=== PATIENT | female | born 1970 | race Caucasian/White ===

== ENCOUNTER 2021-01-16 02:36 | Emergency (ER) | payer BC, SELFPAY ==
[2021-01-16 02:39] VITALS: BP 189/118; PULSE 136; RESP 20; TEMP 36.8; O2SAT 95
[2021-01-16 02:40] VITALS: BP 189/118; PULSE 137; PULSE 139; RESP 19; O2SAT 95
[2021-01-16 02:45] VITALS: BP 154/90
--- NOTE | 2021-01-16 02:45 | RT.EKG_ITS ---
APPROVED REPORT Exam: Resting ECG Reason for Exam: gi bleed/tachycardia Patient Location: E HR:126 bpm ECG Measurements Heart Rate 126 AXIS GA 122 P -3 QRSd 146 QRS 71 QT 346 T -45 QTc 502 Conclusion Sinus tachycardia...rate> 99 Left bundle branch block...QRSd>120, broad/notched R ST elevation secondary to IVCD...Multiple VCG criteria I have reviewed and interpreted ECG and agree with software generated interpretation.
[2021-01-16 03:01] VITALS: BP 203/144; PULSE 123; PULSE 126; RESP 13; O2SAT 96
[2021-01-16] MEDS: Pantoprazole 40 MG VIAL 80 MG IVP (03:10)
[2021-01-16] MEDS: Ondansetron 4 MG/2 ML VIAL (03:14)
[2021-01-16 03:25] LABS: ALT 40 U/L (14-59); AST 63 U/L (15-37); Albumin 2.8 g/dL (3.4-5.0); Alkaline Phosphatase 85 U/L (46-116); Anion Gap 10.9 mmol/L (3-11); BUN 21 mg/dL (7-18); Bilirubin, Total 1.5 mg/dL (0.2-1.0); CO2 25.1 mmol/L (21.0-32.0); CREATININE 0.9 mg/dL (0.55-1.02); Calcium 8.9 mg/dL (8.5-10.1); Chloride 107 mmol/L (98-107); Glucose 156 mg/dL (74-106); Lipase 149 U/L (73-393); Magnesium 1.6 mg/dL (1.8-2.4); Potassium 3.6 mmol/L (3.5-5.1); Sodium 143 mmol/L (136-145); Total Protein 5.9 g/dL (6.4-8.2)
--- NOTE | 2021-01-16 03:29 | ED.GENADUL_ITS ---
Discharge Plan Disposition Patient Disposition: YUE LAURENT ([facility]) Condition: Stable Discharge Details Clinical Impression: Acute upper gastrointestinal hemorrhage Primary Care Provider: Beth Baptiste ED Provider: Neftali Martinez [place] Meds and New Rx's Prescriptions: No Action anastrozole 1 mg Tablet 1 mg PO DAILY RF: 0 carvedilol 6.25 mg Tablet 6.25 mg PO BID RF: 0 bumetanide [Bumex] 2 mg Tablet 2 mg PO DAILY RF: 0 Ashley 30 mg Tablet 30 mg PO DAILY RF: 0 levothyroxine [Synthroid] 50 mcg Tablet 50 mcg PO DAILY RF: 0 potassium 20 mg Tablet,Chewable 30 mg PO DAILY RF: 0 duloxetine [Cymbalta] 60 mg Capsule,Delayed Release(Dr/Ec) 60 mg PO DAILY RF: 0 cholecalciferol (vitamin D3) [Vitamin D3] 125 mcg (5,000 unit) Tablet 125 mcg PO DAILY RF: 0 Medical Decision Making Patient arrives tachycardic and pale. Reports history of varices and portal hypertension not related to liver disease. She brought a bag that she vomited into. It is bright red with clots in nature. Blood pressure reading is markedly high but I suspect the automated cuff is not working given her size. IVs ordered. Laboratory studies ordered. Octreotide bolus and infusion as well as pantoprazole bolus ordered on presumption this is likely esophageal bleeding versus gastric ulcer bleeding. Patient had episode of hematemesis here which was dark red blood and clot with large amount present. Difficulty establishing IVs but eventually obtained an 18 in the right hand and a 22 in the left upper arm. Manual blood pressure eventually obtained and was 150/100. She has not taken her blood pressure medicine in a day or two. Multiple calls made to tertiary care hospitals including [facility], [facility], [facility], [facility]. Ultimately [facility] called back and accepted the patient to the medical ICU. Because of the amount of blood patient vomited despite a hemoglobin of 11.6 she was transfused 2 units of blood. The octreotide infusion is running but given her weight she is unable to be flown to [facility] by helicopter. He did not have a critical care medic and will have to stop the octreotide for transfer. Per [facility] request ceftriaxone is given. Patient continues to remain awake and alert. Heart rate with the blood has come down from 130-110. She still looks quite pale. Platelet and PT/INR are normal. Kidney function normal. Liver function with total bili of 1.5, AST 63, ALT 40. Medical Records Medical records reviewed: Yes I reviewed the patient's medical records. Medical records narrative: reviewed [facility] records available ECG Data Attestation: I personally reviewed and interpreted this ECG (s) as follows: Prior ECG tracings: not available for review Interpretation: see EKG HPI General Mode of arrival: EMS . Date/Time Provider Initiated Documentation: 01/16/21 02:51 . Limitations to Documentation: no limitations . Information obtained by: patient . HPI Narrative: Patient presents to ED with episode of hematemesis. Patient states she woke up with upper abdominal pain. She went to the bathroom because she felt ill. Eventually vomited bright red blood. She reports history of esophageal varices with idiopathic portal hypertension followed by [facility]. She denies having liver disease. She also has history of breast cancer in the past. She has never had hematemesis in the past. She did go to [place] over the weekend and did have some drinks. She does not typically drink and has not had alcohol for over a couple of months. She never was a heavy drinker but stopped drinking entirely when she found out about the esophageal varices. She denies chest pain, shortness of breath. Related Data Home Medications Medication Instructions Recorded Confirmed anastrozole 1 mg PO DAILY 01/16/21 01/16/21 bumetanide [Bumex] 2 mg PO DAILY 01/16/21 01/16/21 carvedilol 6.25 mg PO BID 01/16/21 01/16/21 cholecalciferol (vitamin D3) 125 mcg PO DAILY 01/16/21 01/16/21 [Vitamin D3] duloxetine [Cymbalta] 60 mg PO DAILY 01/16/21 01/16/21 fexofenadine [Ashley] 30 mg PO DAILY 01/16/21 01/16/21 levothyroxine [Synthroid] 50 mcg PO DAILY 01/16/21 01/16/21 potassium 30 mg PO DAILY 01/16/21 01/16/21 Allergies Allergy/AdvReac Type Severity Reaction Status Date / Time levofloxacin [From Levaquin] Allergy Intermediate Unverified 01/16/21 02:44 Sulfa (Sulfonamide Allergy Intermediate Unverified 01/16/21 02:44 Antibiotics) vancomycin Allergy Intermediate Unverified 01/16/21 02:44 General Stated Complaint: Nausea/Vomit/Diar SALENA: 3 Review of Systems Narrative: Not obtained due to critical nature of presentation. [facility] Medical History Breast cancer Esophageal varices HTN (hypertension) Hypothyroid Portal hypertension Surgical History H/O breast surgery Social History Smoking/Tobacco Use Status: Former Tobacco Use Smoking risk assessment performed?: Yes Alcohol Intake: former Details: was a 4-5 drinka day drinker and stopped 4 months ago then drank for the first time again this weekend. Do you feel safe at home: Yes Do you feel safe in your relationship?: Yes Exam Narrative Exam Narrative: Const: Obese female in NAD. HEENT: NC/AT. Normal facial exam. Eyes: Pale conjunctiva Neck: Supple. Trachea midline. Lungs: Normal respiratory effort. Lungs are clear. Cor: Tachycardic. Regular rate and rhythm. Radial pulse present. GI: Soft. NT/ND. No guarding or rebound. Neuro: A+O x 3. Normal speech, mentation, gait. Cranial nerves II - XII grossly intact. No gross motor or sensory deficit. Ext: No C/C/E. Skin: Pale and cool. Course Vital Signs Vital signs: Vital Signs Temperature 98.2 F 01/16/21 02:39 Pulse 136 H 01/16/21 02:39 Respiratory Rate 20 01/16/21 02:39 Blood Pressure 189/118 H 01/16/21 02:39 Pulse Oximetry 95 01/16/21 02:39 Temperature 98.2 F 01/16/21 02:39 Temperature Source Temporal Artery Scan 01/16/21 02:39 Pulse 136 H 01/16/21 02:39 Respiratory Rate 20 01/16/21 02:39 Respiratory Effort 01/16/21 02:53 Blood Pressure 189/118 H 01/16/21 02:39 Blood Pressure Position Sitting 01/16/21 02:39 Pulse Oximetry 95 01/16/21 02:39 Oxygen Delivery Method Room Air 01/16/21 02:39 Oxygen Flow Rate 0 01/16/21 02:39 Critical Care Time Critical Care Time Critical Care Time: Yes Total Critical Care Time: 70 Attestation: Upon my evaluation, this patient had a high probability of imminent or life-threatening deterioration, which required my direct attention, intervention, and personal management. I have personally provided 70 minutes of critical care time exclusive of time spent on separately billable procedures. Time includes review of laboratory data, radiology results, discussion with consultants, and monitoring for potential decompensation. Interventions were performed as documented above.
[2021-01-16 03:30] LABS: Abs Immature Grans 0.11 10^3/uL (0.0-0.06); Absolute Basophil Count 0.05 10^3/uL (0.0-0.2); Absolute Eosinophil Count 0.35 10^3/uL (0.0-0.7); Absolute Lymphocyte Count 2.75 10^3/uL (1.2-3.4); Absolute Monocyte Count 1.78 10^3/uL (0.1-0.8); Absolute Neutrophil Count 6.39 10^3/uL (1.2-6.7); Basophils % 0.4; Eosinophils % 3.1; HCT 34.1 % (36.0-46.0); HGB 11.6 g/dL (11.2-15.7); MCH 31.5 pg (27.0-33.0); MCV 92.7 fL (80-95); MPV 10.3 fL (8.0-11.0); Monocytes % 15.6; Neutrophils % 55.9; Nucleated RBC 0 %; Platelet Count 131 10^3/uL (130-400); RBC 3.68 10^6/uL (3.93-5.22); RDW 13.6 % (11.7-14.6); RDW-SD 46.3 fL; WBC 11.44 10^3/uL (4.4-10.8)
[2021-01-16 03:43] VITALS: TEMP 36.4
[2021-01-16 03:53] LABS: INR 1.1 (0.9-1.1); Prothrombin Time 10.8 sec (9.3-11.0)
[2021-01-16] MEDS: Lactated Ringers 1,000 ML 1000 ML IV (03:53)
[2021-01-16 04:37] VITALS: BP 145/100; PULSE 115; RESP 16; O2SAT 95
--- NOTE | 2021-01-16 04:43 | NUR.NOTE ---
Nursing Note:pt arrived via ems for vomiting blood. patient was a hard stick and took multiple attempts at iv access. pt started to have bloody emesis. verbal order for zofran 4mg iv given by dr. mcdowell. blood bank was also notified of the need for uncrossed blood. pt had a total of 800ml of bloody vomit thus far. pt remained stable throughout visit so far. bp taken manually d/t inaccuracy of monitor. warm blankets and socks provided. pt remained tachycardic but never needed supplemental oxygen. med rec rcvd from [facility] for updating records. prbc's were given via pump d/t location of iv. pt had no reaction to blood transfusion. pt remained aox4. speech clear. lungs clear. pt had no episodes of aspiration while vomiting. this rn waved alcohol swabs in front of nose to help wiht nausea that seemed to help with intermit nausea. awaiting transport at this time to [facility] via ground. octreotide and blood infusing at this time. will give abx once blood is complete. pt denies any needs at this time.
[2021-01-16] MEDS: Ondansetron 4 MG/2 ML VIAL IVP (04:45)
[2021-01-16] MEDS: cefTRIAXone 1 GM/50 ML BAG IVPB (05:25)
== END 2021-01-16 05:40 | disposition short-term general hospital (02) ==
PROVIDERS: Emergency Provider Emergency Medicine; PCP Nurse Practitioner Adult Health
DX: K92.2 Gastrointestinal hemorrhage, unspecified (principal); I85.00 Esophageal varices without bleeding; K76.0 Fatty (change of) liver, not elsewhere classified
CPT/HCPCS: 36415; 36430; 80053; 83690; 86850; 86900; 86901; 86920; 93005; 96361; 96365; 96366; 96375; 96376; 99291; 83735; 85025; 85610; 93010; J0696; J2354; J2405; P9016

== ENCOUNTER 2021-10-30 06:38 | Emergency (ER) | payer OTHER, SELFPAY ==
[2021-10-30] VITALS (23 sets, daily range): BP systolic 137–167; BP diastolic 68–118; PULSE 89–118; RESP 9–45; TEMP 36.6; O2SAT 94–98
--- NOTE | 2021-10-30 06:42 | ED.GENADUL_ITS ---
Discharge Plan Disposition Patient Disposition: HOME Condition: Improving Discharge Details Clinical Impression: Allergic reaction Primary Care Provider: Beth Baptiste ED Provider: Pradeep Charles Home Meds and New Rx's Prescriptions: New prednisone 50 mg tablet 50 mg PO DAILY 5 Days Qty: 5 0RF famotidine [Pepcid] 20 mg tablet 20 mg PO BID 7 Days Qty: 14 0RF epinephrine [EpiPen] 0.3 mg/0.3 mL auto-injector 0.3 mg IM ONCE PRN (Reason: anaphylaxis) Qty: 1 0RF Rx Instructions: as a single dose; may repeat once Continued anastrozole 1 mg Tablet 1 mg PO DAILY 0RF carvedilol 6.25 mg Tablet 6.25 mg PO BID 0RF bumetanide 2 mg Tablet 2 mg PO DAILY 0RF fexofenadine 30 mg Tablet 30 mg PO DAILY 0RF levothyroxine [Synthroid] 50 mcg Tablet 50 mcg PO DAILY 0RF potassium 20 mg Tablet,Chewable 30 mg PO DAILY 0RF duloxetine [Cymbalta] 60 mg Capsule,Delayed Release(Dr/Ec) 60 mg PO DAILY 0RF cholecalciferol (vitamin D3) [Vitamin D3] 125 mcg (5,000 unit) Tablet 125 mcg PO DAILY 0RF albuterol sulfate 90 mcg/actuation Hfa Aerosol Inhaler 2 puff INHALATION PRN0RF pantoprazole 40 mg Tablet,Delayed Release (Dr/Ec) 40 mg PO DAILY 0RF folic acid 1 mg Tablet 1 mg PO DAILY 0RF fluticasone propionate [Flonase Allergy Relief] 50 mcg/actuation [place],Suspension 2 spray INTRANASAL BID 0RF Vitron-C 65 mg iron- 125 mg Tablet,Delayed Release (Dr/Ec) 1 tab PO DAILY 0RF ondansetron HCl 4 mg Tablet 4 mg PRN0RF polysaccharide iron complex 150 mg iron Tablet 150 mg PO DAILY 0RF Slow-Mag 71.5 mg Tablet,Delayed Release (Dr/Ec) 71.5 mg PO DAILY 0RF Probiotic 10 billion cell Capsule 1 PO DAILY 0RF Discharge Instructions Instructions: General Allergic Reaction (ED) Additional Instructions: Home to rest today. Take prednisone as prescribed. You may begin this medication this evening. Pepcid as prescribed during the daytime and you may also use Benadryl 25 to 50 mg at bedtime as needed for persistent itching or swelling. Continue your surveillance for possible allergens in your environment. Return to the ER for any acute concerns. Stand Alone Forms: Work Release Medical Decision Making <Neftali Martinez MD - Last Filed: 10/30/21 07:56> Patient presenting with allergic reaction to unknown allergen with resulting hives, pruritus, vomiting, wheezing. I do not appreciate tongue swelling, stridor. However, given the patient multiple system involvement will treat as anaphylaxis and dose with epi. She has already taken Benadryl. Zofran ordered for her vomiting. Fluids and Solu-Medrol given. Will observe patient. Patient's labs look okay. She is reporting not feeling a lot better but she has less hives and seems more comfortable. Will sign out to oncoming physician for re-eval. <Pradeep Charles MD - Last Filed: 10/30/21 09:39> Medical Records Medical records reviewed: Yes I reviewed the patient's medical records. Lab Data Lab results reviewed: Yes I reviewed the patient's lab results. Lab results narrative: Laboratory Results - last 24 hr 10/30/21 10/30/21 06:55 06:55 WBC 9.04 RBC 4.23 Hgb 12.0 Hct 37.1 MCV 87.7 MCH 28.4 MCHC 32.3 RDW 15.4 H Plt Count 183 MPV 10.2 Immature Gran % 0.4 Neutrophils % 54.6 Lymphocytes % 29.3 Monocytes % 13.7 Eosinophils % 1.8 Basophils % 0.2 Nucleated RBC % 0.0 Absolute Neutrophils 4.93 Absolute Lymphocytes 2.65 Absolute Monocytes 1.24 H Absolute Eosinophils 0.16 Absolute Basophils 0.02 Sodium 141 Potassium 3.2 L Chloride 107 Carbon Dioxide 24.1 Anion Gap 9.9 BUN 7 Creatinine 0.7 Estimated GFR/1.73 m2 >= 60.00 Glucose 139 H Calcium 8.0 L Total Bilirubin 1.1 H AST 38 H ALT 21 Alkaline Phosphatase 94 Total Protein 6.8 Albumin 3.0 L Received patient in signout from Dr. Martinez. She improved with medication. She tolerated breakfast eating some Danish toast. I will place her on a burst of prednisone for allergic reaction to on certain antigen. I also placed her on Pepcid. She is prescribed an EpiPen as a precaution and given instructions on outpatient care. She will return for any concerns. HPI <Neftali Martinez MD - Last Filed: 10/30/21 07:56> General Mode of arrival: EMS . Date/Time Provider Initiated Documentation: 10/30/21 06:42 . Limitations to Documentation: no limitations . Information obtained by: patient and RN notes reviewed . HPI Narrative: Patient presents to the ED after waking up with pruritus, chest tightness, erythematous hands. She did take 50 mg of diphenhydramine. She has had nausea and vomiting. She feels like her tongue is swollen. She does not know what the reaction like possibly be due to. She has no new medications. She has not tried anything for. She has not been ill recently. Ultimately called EMS and was transported to ED for further evaluation. Related Data Home Medications Medication Instructions Recorded Confirmed anastrozole 1 mg tablet 1 mg PO DAILY 01/16/21 10/30/21 bumetanide 2 mg tablet 2 mg PO DAILY 01/16/21 10/30/21 carvedilol 6.25 mg tablet 6.25 mg PO BID 01/16/21 10/30/21 cholecalciferol (vitamin D3) 125 125 mcg PO DAILY 01/16/21 10/30/21 mcg (5,000 unit) tablet (Vitamin D3) duloxetine 60 mg capsule,delayed 60 mg PO DAILY 01/16/21 10/30/21 release (Cymbalta) fexofenadine 30 mg tablet 30 mg PO DAILY 01/16/21 10/30/21 levothyroxine 50 mcg tablet 50 mcg PO DAILY 01/16/21 10/30/21 (Synthroid) potassium 20 mg chewable tablet 30 mg PO DAILY 01/16/21 10/30/21 Lactobacillus acidophilus 10 1 PO DAILY 10/30/21 billion cell capsule (Probiotic) albuterol sulfate 90 mcg/actuation 2 puff INHALATION PRN 10/30/21 aerosol inhaler epinephrine 0.3 mg/0.3 mL 0.3 mg (0.3 mL) IM ONCE PRN #1 ea 10/30/21 injection, auto-injector (EpiPen) famotidine 20 mg tablet (Pepcid) 20 mg PO BID 7 Days #14 tab 10/30/21 fluticasone propionate 50 2 spray INTRANASAL BID 10/30/21 10/30/21 mcg/actuation nasal spray,suspension (Flonase Allergy Relief) folic acid 1 mg tablet 1 mg PO DAILY 10/30/21 10/30/21 iron,carbonyl 65 mg-vitamin C 125 1 tab PO DAILY 10/30/21 10/30/21 mg tablet,delayed release (Vitron-C) magnesium chloride 71.5 mg 71.5 mg PO DAILY 10/30/21 10/30/21 (magnesium chloride) tablet,delayed release (Slow-Mag) ondansetron HCl 4 mg tablet 4 mg PRN 10/30/21 pantoprazole 40 mg tablet,delayed 40 mg PO DAILY 10/30/21 10/30/21 release polysaccharide iron complex 150 mg 150 mg PO DAILY 10/30/21 10/30/21 iron tablet prednisone 50 mg tablet 50 mg PO DAILY 5 Days #5 tab 10/30/21 Previous Rx's Medication Instructions Recorded epinephrine 0.3 mg/0.3 mL 0.3 mg (0.3 mL) IM ONCE PRN #1 ea 10/30/21 injection, auto-injector (EpiPen) famotidine 20 mg tablet (Pepcid) 20 mg PO BID 7 Days #14 tab 10/30/21 prednisone 50 mg tablet 50 mg PO DAILY 5 Days #5 tab 10/30/21 Allergies Allergy/AdvReac Type Severity Reaction Status Date / Time levofloxacin [From Levaquin] Allergy Intermediate Unverified 01/16/21 02:44 Sulfa (Sulfonamide Allergy Intermediate Unverified 01/16/21 02:44 Antibiotics) tamoxifen Allergy Intermediate Unverified 10/30/21 06:45 vancomycin Allergy Intermediate Unverified 01/16/21 02:44 General SALENA: 3 Review of Systems <Neftali Martinez MD - Last Filed: 10/30/21 07:56> Constitutional Constitutional: Denies fever(s) and Denies headache(s) ENT Ears, Nose, Mouth, and Throat: Denies change in voice, Denies headache(s), Denies sore throat and Reports tongue swelling Cardiovascular Cardiovascular: Denies syncope and Denies dyspnea Respiratory Respiratory: Denies dyspnea Gastrointestinal Gastrointestinal: Denies diarrhea, Reports nausea and Reports vomiting Integumentary/Breasts Skin/Breast: Reports pruritus and Reports rash Neurologic Neurologic: Denies syncope and Denies headache(s) Allergic/Immunologic Allergic/Immunologic: Reports tongue swelling PFS <Neftali Martinez MD - Last Filed: 10/30/21 07:56> All Active Problems (Updated 10/30/21 @ 09:24 by Pradeep Charles MD) Allergic reaction (Acute) Medical History Breast cancer Esophageal varices HTN (hypertension) Hypothyroid Portal hypertension Surgical History H/O breast surgery Social History Smoking/Tobacco Use Status: Former Tobacco Use Smoking risk assessment performed?: Yes Alcohol Intake: former Drug use: Never Substance use type: does not use Details: was a 4-5 drinka day drinker and stopped 4 months ago then drank for the first time again this weekend. Do you feel safe at home: Yes Do you feel safe in your relationship?: Yes Exam <Neftali Martinez MD - Last Filed: 10/30/21 07:56> Narrative Exam Narrative: Const: Morbidly obese female in NAD. HEENT: NC/AT. Puffy, erythematous periorbital area. No lip or tongue swelling appreciated. Eyes: Normal conjunctiva and sclera. Neck: Supple. Trachea midline. No stridor. Lungs: Normal respiratory effort. Lungs with few scattered wheeze throughout. Cor: RRR without murmur/gallop. Mild tachycardia. Good radial pulses. GI: Soft. NT/ND. Neuro: A+O x 3. Normal speech, mentation, gait. Cranial nerves II - XII grossly intact. No gross motor or sensory deficit. Ext: No C/C/E. Skin: Warm and dry with erythematous palms and diffuse hives. Sign Out <Neftali Martinez MD - Last Filed: 10/30/21 07:56> Sign Out Data: Sign Out Comment: re-eval in few hours after epi dose Last updated by Neftali Martinez MD at 10/30/21 07:55
[2021-10-30] MEDS: Normal Saline 1,000 ML 1000 ML IV (06:55)
[2021-10-30] MEDS: Ondansetron 4 MG/2 ML VIAL IVP (06:55)
[2021-10-30] MEDS: methylPREDNISolone SUCC 125 MG VIAL IVP (07:00)
[2021-10-30] MEDS: EPINEPHrine 1 MG/ML AMP pres-free 0.3 MG SC (07:05)
[2021-10-30 07:29] LABS: Abs Immature Grans 0.04 10^3/uL (0.0-0.06); Absolute Basophil Count 0.02 10^3/uL (0.0-0.2); Absolute Eosinophil Count 0.16 10^3/uL (0.0-0.7); Absolute Lymphocyte Count 2.65 10^3/uL (1.2-3.4); Absolute Monocyte Count 1.24 10^3/uL (0.1-0.8); Absolute Neutrophil Count 4.93 10^3/uL (1.2-6.7); Basophils % 0.2; Eosinophils % 1.8; HCT 37.1 % (36.0-46.0); Immature Grans % 0.4; Lymphocytes % 29.3; MCH 28.4 pg (27.0-33.0); MCHC 32.3 % (32.0-36.0); MCV 87.7 fL (80-95); MPV 10.2 fL (8.0-11.0); Monocytes % 13.7; Neutrophils % 54.6; Platelet Count 183 10^3/uL (130-400); RBC 4.23 10^6/uL (3.93-5.22); RDW 15.4 % (11.7-14.6); RDW-SD 48.5 fL; WBC 9.04 10^3/uL (4.4-10.8)
[2021-10-30 07:44] LABS: ALT 21 U/L (14-59); AST 38 U/L (15-37); Alkaline Phosphatase 94 U/L (46-116); Anion Gap 9.9 mmol/L (3-11); BUN 7 mg/dL (7-18); Bilirubin, Total 1.1 mg/dL (0.2-1.0); CO2 24.1 mmol/L (21.0-32.0); CREATININE 0.7 mg/dL (0.55-1.02); Chloride 107 mmol/L (98-107); Glucose 139 mg/dL (74-106); Potassium 3.2 mmol/L (3.5-5.1); Sodium 141 mmol/L (136-145); Total Protein 6.8 g/dL (6.4-8.2)
--- NOTE | 2021-10-30 07:51 | NUR.NOTE ---
pt has had no change in symptoms. still experiencing itchy skin and nausea. NIKUNJ
[2021-10-30] MEDS: Famotidine 20 MG/2 ML VIAL IVP (08:06)
--- NOTE | 2021-10-30 08:06 | NUR.NOTE ---
Nursing Note: [facility] [phone]
== END 2021-10-30 09:54 | disposition home or self-care (01) ==
PROVIDERS: Emergency Medicine; Emergency Provider Emergency Medicine; PCP Nurse Practitioner Adult Health
DX: T78.49XA Other allergy, initial encounter (principal); X58.XXXA Exposure to other specified factors, initial encounter
CPT/HCPCS: 36415; 80053; 96361; 96372; 96374; 96375; 99284; 85025; J0171; J2405; J2930

== ENCOUNTER 2025-02-23 06:25 | Emergency (ER) | payer OTHER, SELFPAY ==
[2025-02-23] VITALS (37 sets, daily range): BP systolic 140–179; BP diastolic 76–105; PULSE 81–98; RESP 13–28; TEMP 36.9; O2SAT 84–98
--- NOTE | 2025-02-23 06:15 | RT.EKG_ITS ---
APPROVED REPORT Exam: Resting ECG Reason for Exam: Chest Tightness Patient Location: E HR:99 bpm ECG Measurements Heart Rate 99 AXIS NV 179 P 61 QRSd 161 QRS -27 QT 420 T 107 QTc 539 Conclusion Sinus rhythm...normal P axis, V-rate 60- 99 Left bundle branch block...QRSd>120, broad/notched R ST elevation secondary to IVCD...Multiple VCG criteria Compared to 01/16/2021 there appears to be possible limb lead reversal. No other old to compare, will repeat. No evidence of occlusive NV.
--- NOTE | 2025-02-23 06:30 | RT.EKG_ITS ---
APPROVED REPORT Exam: Resting ECG Reason for Exam: chest pain Patient Location: E HR:95 bpm ECG Measurements Heart Rate 95 AXIS CA 174 P 62 QRSd 161 QRS -25 QT 423 T 109 QTc 532 Conclusion Sinus rhythm...normal P axis, V-rate 60- 99 Left bundle branch block...QRSd>120, broad/notched R ST elevation secondary to IVCD...Multiple VCG criteria EKG is same as one done earlier today.
--- NOTE | 2025-02-23 07:02 | W.ED.GENAD ---
Discharge Plan Disposition Patient Disposition: Home Condition: Good Discharge Details Clinical Impression: Atypical chest pain Primary Care Provider: Beth Baptiste ED Provider: Je Mantilla Home Meds and New Rx's Prescriptions: New hydromorphone [Dilaudid] 2 mg tablet 1 mg PO Q6H PRN (Reason: pain) Qty: 6 0RF Continued anastrozole 1 mg Tablet 1 mg PO DAILY carvedilol 6.25 mg Tablet 30 mg PO ONCE bumetanide 2 mg Tablet 2 mg PO DAILY fexofenadine 30 mg Tablet 30 mg PO DAILY levothyroxine [Synthroid] 50 mcg Tablet 50 mcg PO DAILY potassium 20 mg Tablet,Chewable 30 mg PO DAILY duloxetine [Cymbalta] 60 mg Capsule,Delayed Release(Dr/Ec) 20 mg PO DAILY cholecalciferol (vitamin D3) [Vitamin D3] 125 mcg (5,000 unit) Tablet 125 mcg PO DAILY albuterol sulfate 90 mcg/actuation Hfa Aerosol Inhaler 2 puff INHALATION Q6H PRN pantoprazole 40 mg Tablet,Delayed Release (Dr/Ec) 40 mg PO DAILY folic acid 1 mg Tablet 1 mg PO DAILY fluticasone propionate [Flonase Allergy Relief] 50 mcg/actuation [place],Suspension 2 spray INTRANASAL ONCE Vitron-C 65 mg iron- 125 mg Tablet,Delayed Release (Dr/Ec) 1 tab PO DAILY ondansetron HCl 4 mg Tablet 4 mg PO Q8H PRN polysaccharide iron complex 150 mg iron Tablet 150 mg PO DAILY Slow-Mag 71.5 mg Tablet,Delayed Release (Dr/Ec) 71.5 mg PO DAILY Probiotic 10 billion cell Capsule 10,000 mmu cells PO DAILY epinephrine [EpiPen] 0.3 mg/0.3 mL auto-injector 0.3 mg IM ONCE PRN (Reason: anaphylaxis) Qty: 1 0RF Rx Instructions: as a single dose; may repeat once rifaximin 550 mg tablet 550 mg PO BID bupropion HCl [Wellbutrin XL] 150 mg tablet extended release 24 hr 450 mg PO DAILY lactulose 10 g 15 - 30 ml PO BID PRN Rx Instructions: 15-30Ml once or twice daily as directed, as needed. levothyroxine 300 mcg PO .Weekly Rx Instructions: Take 1 tablet by mouth once a week before meal(s) with a 50MCG tablet . Jessica 350MCG weekly. nystatin 100,000 unit/gram powder 1 applic topical BID Discharge Instructions Instructions: Chest Pain, Adult ED Additional Instructions: Please follow-up with your primary care provider regarding your visit to the emergency department today. Be sure to discuss results of all test performed here today to include radiology, and laboratory testing as well as results for any pending cultures. Should your symptoms worsen, or if you develop new concerning symptoms, please return immediately emergency department for further evaluation. HPI General Date/Time Provider Initiated Documentation: 02/23/25 06:35. HPI Narrative: The patient is a 54-year-old female with a known history of hypertension, HE 2/2 steatohepatitis, VTE, Breast CA in remissions, presenting with acute chest pain. The patient reports experiencing sudden chest constriction last night while departing from work, accompanied by thoracic discomfort between the shoulder blades and abdominal discomfort initially presumed to be due to gastrointestinal gas. She has no prior history of cardiac issues. She skipped dinner and attempted to rest but was unable to sleep due to persistent pain affecting the chest, back, and abdomen, which intensified when lying supine. She attempted to induce emesis but only experienced a single episode of dry heaving. She felt nauseous and had a small bowel movement. There is no history of similar episodes. The patient has a history of liver disease but denies any known cardiac conditions or previous myocardial infarctions. She has scheduled an MRI and EEG for 02/25/2025. She has been diagnosed with hypertension and is currently restricted from driving. She has a history of lymphedema in both lower extremities and the left upper extremity, with recent exacerbation of swelling. She did not take her diuretic medication today. The patient reports a persistent cough, which is typical for her, and produced phlegm once. She experienced episodes of pyrexia and chills last night, with difficulty regulating her body temperature. She denies melena or hematochezia. PAST SURGICAL HISTORY: Mastectomy, section, cyst removal from the left wrist, and treatment for a Vanita-Eliane tear in January 2021. Related Data Home Medications ?Medication ?Instructions ?Recorded ?Confirmed anastrozole 1 mg tablet 1 mg PO DAILY 01/16/21 02/23/25 bumetanide 2 mg tablet 2 mg PO DAILY 01/16/21 02/23/25 carvedilol 6.25 mg tablet 30 mg PO ONCE 01/16/21 02/23/25 cholecalciferol (vitamin D3) 125 125 mcg PO DAILY 01/16/21 02/23/25 mcg (5,000 unit) tablet (Vitamin D3) duloxetine 60 mg capsule,delayed 20 mg PO DAILY 01/16/21 02/23/25 release (Cymbalta) fexofenadine 30 mg tablet 30 mg PO DAILY 01/16/21 02/23/25 levothyroxine 50 mcg tablet 50 mcg PO DAILY 01/16/21 02/23/25 (Synthroid) potassium 20 mg chewable tablet 30 mg PO DAILY 01/16/21 02/23/25 Lactobacillus acidophilus 10 10,000 mmu cells PO DAILY 10/30/21 02/23/25 billion cell capsule (Probiotic) albuterol sulfate 90 mcg/actuation 2 puff inhalation Q6H PRN 10/30/21 02/23/25 aerosol inhaler epinephrine 0.3 mg/0.3 mL 0.3 mg (0.3 mL) IM ONCE PRN 10/30/21 02/23/25 injection, auto-injector (EpiPen) anaphylaxis #1 ea fluticasone propionate 50 2 spray intranasal ONCE 10/30/21 02/23/25 mcg/actuation nasal spray,suspension (Flonase Allergy Relief) folic acid 1 mg tablet 1 mg PO DAILY 10/30/21 02/23/25 iron,carbonyl 65 mg-vitamin C 125 1 tab PO DAILY 10/30/21 02/23/25 mg tablet,delayed release (Vitron-C) magnesium chloride 71.5 mg 71.5 mg PO DAILY 10/30/21 02/23/25 (magnesium chloride) tablet,delayed release (Slow-Mag) ondansetron HCl 4 mg tablet 4 mg PO Q8H PRN 10/30/21 02/23/25 pantoprazole 40 mg tablet,delayed 40 mg PO DAILY 10/30/21 02/23/25 release polysaccharide iron complex 150 mg 150 mg PO DAILY 10/30/21 02/23/25 iron tablet bupropion HCl 150 mg 24 hr tablet, 450 mg PO DAILY 02/23/25 02/23/25 extended release (Wellbutrin XL) hydromorphone 2 mg tablet 1 mg (1/2 x 2 mg) PO Q6H PRN pain 02/23/25 (Dilaudid) #6 tabs lactulose 15 - 30 ml PO BID PRN 02/23/25 02/23/25 levothyroxine 300 mcg PO .Weekly 02/23/25 02/23/25 nystatin 100,000 unit/gram topical 1 applic topical BID 02/23/25 02/23/25 powder rifaximin 550 mg tablet 550 mg PO BID 02/23/25 02/23/25 Previous Rx's ?Medication ?Instructions ?Recorded epinephrine 0.3 mg/0.3 mL 0.3 mg (0.3 mL) IM ONCE PRN 10/30/21 injection, auto-injector (EpiPen) anaphylaxis #1 ea hydromorphone 2 mg tablet 1 mg (1/2 x 2 mg) PO Q6H PRN pain 02/23/25 (Dilaudid) #6 tabs Allergies Allergy/AdvReac Type Severity Reaction Status Date / Time levofloxacin (From Levaquin) Allergy Intermediate Other (See Unverified 02/23/25 07:39 Comment) Sulfa (Sulfonamide Allergy Intermediate Skin Rash Unverified 02/23/25 07:39 Antibiotics) tamoxifen Allergy Intermediate Skin Rash Unverified 02/23/25 07:39 vancomycin Allergy Intermediate Unknown Unverified 02/23/25 07:39 doxycycline Allergy Skin Rash Verified 02/23/25 07:39 linezolid Allergy Hives Verified 02/23/25 07:39 adhesive tape AdvReac Hives Verified 02/23/25 07:39 ciprofloxacin AdvReac Skin Rash Verified 02/23/25 07:39 General Stated Complaint: Chest Pain SALENA: 3 Review of Systems All systems reviewed & are unremarkable except as noted in HPI and below Exam Narrative Exam Narrative: Vital signs: Reviewed. General Appearance: Alert and oriented. No acute distress. HEENT: NCAT, EOMI, not icteric. External ears normal. No rhinorrhea. Moist mucous membranes. Neck: Supple, full range of motion, no observable masses, No meningeal sign. Respiratory: No Respiratory distress. No tachypnea. Cardiovascular: No murmurs, rubs, or gallops. Gastrointestinal: Soft, nondistended, No rebound tenderness. Back: No midline tenderness to palpation or palpable step-offs of the C/T/L spine. Musculoskeletal: No erythema or calf tenderness bilaterally. Chronic lymphedema of the left upper extremity and bilateral lower extremities. Skin: Warm and dry, no rash. Neurological: Normal Gait, Grossly intact. Psychiatric: Appropriate for situation. Course Reevaluation(s) Reevaluation: On reassessment, patient is resting comfortably, she notes some mild abdominal discomfort although she has no tenderness, guarding or rigidity on examination. Results shared with and explained with the patient, she is agreeable with the plan for ambulatory trial here in the ER and the discharge with pain medication for follow-up with PCP, neurology and hepatology. Time: 13:12 Reevaluation #2: Patient was able to ambulate easily with assistance of walker. She remains hemodynamically stable and is ready for discharge. Vital Signs Vital signs: Vital Signs Pulse 96 H 02/23/25 06:28 Respiratory Rate 24 02/23/25 06:28 Blood Pressure 164/88 H 02/23/25 06:28 Pulse Oximetry 92 02/23/25 06:28 Pulse 92 H 02/23/25 06:32 Respiratory Rate 24 02/23/25 06:28 Blood Pressure 164/88 H 02/23/25 06:32 Blood Pressure Mean 107 02/23/25 06:32 Blood Pressure Position Sitting 02/23/25 06:28 Pulse Oximetry 91 L 02/23/25 06:32 Oxygen Delivery Method Room Air 02/23/25 06:28 Oxygen Flow Rate 0 02/23/25 06:28 Lab/Test Results Lab/Test Results: Laboratory Tests Range/Units 02/23/25 02/23/25 02/23/25 06:50 07:18 09:02 WBC (4.4-10.8) 10^3/uL 8.60 RBC (3.93-5.22) 10^6/uL 4.74 Hgb (11.2-15.7) g/dL 14.8 Hct (36.0-46.0) % 43.4 MCV (80-95) fL 92 MCH (27.0-33.0) pg 31.2 MCHC (32.0-36.0) % 34.1 RDW (11.7-14.6) % 13.1 Plt Count (130-400) 10^3/uL MPV (8.0-11.0) fL Immature Gran % % 0.6 Neutrophils % % 75.6 Lymphocytes % % 9.9 Monocytes % % 13.3 Eosinophils % % 0.1 Basophils % % 0.5 Nucleated RBC % (0.0-0.3) % 0.0 Absolute Neutrophils (1.2-6.7) 10^3/uL 6.51 Absolute Lymphocytes (1.2-3.4) 10^3/uL 0.85 L Absolute Monocytes (0.1-0.8) 10^3/uL 1.14 H Absolute Eosinophils (0.0-0.7) 10^3/uL 0.01 Absolute Basophils (0.0-0.2) 10^3/uL 0.04 PT (9.1-11.1) sec 11.4 H INR (0.9-1.1) 1.1 APTT (20.6-30.2) sec 24.5 Sodium (136-145) mmol/L 142 Potassium (3.5-5.1) mmol/L 3.9 Chloride (98-107) mmol/L 106 Carbon Dioxide (21.0-32.0) mmol/L 26.0 Anion Gap (3-11) mmol/L 10.0 BUN (7-18) mg/dL 15 Creatinine (0.55-1.02) mg/dL 0.9 Est GFR (CKD-EPI 2020) (mL/min/1.73m2) 76.44 Glucose (74-106) mg/dL 133 H Calcium (8.5-10.1) mg/dL 9.8 Magnesium (1.8-2.4) mg/dL 1.6 L Total Bilirubin (0.2-1.0) mg/dL 3.3 H GGT (5-55) U/L AST (15-37) U/L 41 H ALT (14-59) U/L 21 Alkaline Phosphatase (46-116) U/L 90 Troponin I (<or=51) ng/L 13 14 Total Protein (6.4-8.2) g/dL 6.8 Albumin (3.4-5.0) g/dL 3.2 L Lipase (<78) U/L Range/Units 02/23/25 02/23/25 02/23/25 10:05 10:25 13:38 WBC (4.4-10.8) 10^3/uL RBC (3.93-5.22) 10^6/uL Hgb (11.2-15.7) g/dL Hct (36.0-46.0) % MCV (80-95) fL MCH (27.0-33.0) pg MCHC (32.0-36.0) % RDW (11.7-14.6) % Plt Count (130-400) 10^3/uL MPV (8.0-11.0) fL Immature Gran % % Neutrophils % % Lymphocytes % % Monocytes % % Eosinophils % % Basophils % % Nucleated RBC % (0.0-0.3) % Absolute Neutrophils (1.2-6.7) 10^3/uL Absolute Lymphocytes (1.2-3.4) 10^3/uL Absolute Monocytes (0.1-0.8) 10^3/uL Absolute Eosinophils (0.0-0.7) 10^3/uL Absolute Basophils (0.0-0.2) 10^3/uL PT (9.1-11.1) sec INR (0.9-1.1) APTT (20.6-30.2) sec Sodium (136-145) mmol/L Potassium (3.5-5.1) mmol/L Chloride (98-107) mmol/L Carbon Dioxide (21.0-32.0) mmol/L Anion Gap (3-11) mmol/L BUN (7-18) mg/dL Creatinine (0.55-1.02) mg/dL Est GFR (CKD-EPI 2020) (mL/min/1.73m2) Glucose (74-106) mg/dL Calcium (8.5-10.1) mg/dL Magnesium (1.8-2.4) mg/dL Total Bilirubin (0.2-1.0) mg/dL GGT (5-55) U/L 37 AST (15-37) U/L ALT (14-59) U/L Alkaline Phosphatase (46-116) U/L Troponin I (<or=51) ng/L 12 Total Protein (6.4-8.2) g/dL Albumin (3.4-5.0) g/dL Lipase (<78) U/L 31 Medical Decision Making Initial Assessment: 54-year-old female with chest pain, back discomfort, and abdominal tightness. History of hypertension, lymphedema, and previous blood clots. No prior heart issues. Differential Diagnosis: - Myocardial infarction: EKG results do not indicate. - Pulmonary embolism: Symptoms of chest pain, back discomfort, and shortness of breath. Blood tests and CT scan ordered. - PNA/PTX: CXR ordered ED Course: EKG performed, no myocardial infarction although patient with noted LBBB on exam. Only prior EKG is from 10 years ago, so it is unclear if this is an acute finding or not. Blood tests ordered to assess cardiac damage. CT scan ordered to rule out pulmonary embolism. Intravenous Dilaudid for pain management. Zofran for nausea if required given patietns prolonged QTc. CTA negative for acute PE, but gallbaldder noted to be distended n CT, will obtain US. US without evidence of cholecystittis. Patient is ambulatory and hemodynamically stable. Will plan to discharge for further management and follow up with previously schedueld EEG/liver MRI at [facility] later this week. This document was created with assistance from [email or web address]. The patient consented to its use. Imaging Data Radiologic Study: Radiologist's impression: Exam(s) a CT:CT chest PE CTA Exam(s) CT CHEST PE CTA EXAM: CT CHEST PE CTA CLINICAL HISTORY: Hx of VTE/Malignancy presenting w/ chest pain/SOB. TECHNIQUE: Imaging Protocol: Axial CT angiography was performed with multi-slice acquisition and multi-planar reconstructions as well as axial, coronal and sagittal MIP reconstructions. Computer aided detection (CAD) was utilized. CONTRAST MATERIAL: Intravenous: Omnipaque 350 Contrast volume:200 ml total. The first IV infiltrated in the patient returned with a new IV. COMPARISON: CR XR CHEST 1V IN DI DEPT from 02/23/2025 FINDINGS: Pulmonary Arteries: Prominent. No evidence of filling defect to suggest pulmonary emboli. Mediastinum and Karina: No dominant adenopathy or fluid collection. Pulmonary parenchyma: Mildly limited by respiratory motion and expiratory changes. No consolidation or dominant measurable mass. Pleura: No effusion or pneumothorax. Heart: The heart is mildly dilated. Moderate coronary artery calcifications are seen. Aorta: Thoracic aorta non-dilated. No dissection. Tortuous. Upper abdomen: The liver shows enlargement of the left lobe. There is recanalization of the umbilical vein. Findings care consistent with cirrhosis. The spleen is enlarged, measuring over 15 cm. A stone is noted in the gallbladder. Small hiatal hernia. Bones: Mild scoliosis and degenerative changes. Tubes, Catheters, and Lines: None Soft tissues: Right breast implant. The soft tissues of the left chest are partially obscured from view. There is scarring and fat necrosis noted in the left breast. IMPRESSION: No evidence of pulmonary embolism. Pulmonary arteries are prominent. The lungs are grossly clear. Cirrhotic appearing liver. Splenomegaly. RADIATION DOSE DELIVERED: 487.23mGy.cm Total DLP Radiologic Study #2: My impression: NAD Radiologist's impression: Exam(s) XR CHEST 1V IN DI DEPT EXAM: XR CHEST 1V IN DI DEPT CLINICAL HISTORY: Chest pain TECHNIQUE: 2D digital imaging was performed. COMPARISON: None FINDINGS: LUNGS: The lung bases are under penetrated. No gross evidence of infiltrate. No pleural abnormality seen. HEART: Normal size. AORTA: Normal diameter. BONES: Degenerative changes and scoliosis. Soft tissues: Surgical clips over the left lower lateral chest and superimposed over the right hilum. Overlying monitoring leads. IMPRESSION: No acute findings. Radiologic Study #3: Radiologist's impression: Exam(s) US ABDOMEN LIMITED EXAM: US ABDOMEN LIMITED CLINICAL HISTORY: RUQ tenderness TECHNIQUE: Ultrasound abdomen performed using standard protocol. COMPARISON: CT CT CHEST PE CTA from 02/23/2025 FINDINGS: Exam is limited by the patient's body habitus. LIVER: Normal size. Coarse liver echotexture. Varices noted in the region of the falciform ligament. No focal liver lesions are seen. GALLBLADDER: 2 calcified stones were noted which appears to be parent to the gallbladder wall. No evidence of wall thickening. No pericholecystic fluid identified. PRATHER'S SIGN: Negative. BILIARY SYSTEM: No intrahepatic or extrahepatic biliary ductal dilation. KIDNEY: The right kidney is normal in size. No evidence of renal calculi. No evidence of hydronephrosis. No renal mass or cyst identified. PANCREAS: Obscured. ABDOMINAL AORTA AND IVC: Visualized portions normal caliber. ASCITES: None seen. IMPRESSION: Cirrhotic appearing liver with varices. Nonmobile calcifications inherent to the gallbladder wall could represent calcified polyps versus adherent stones. No definite wall thickening or abnormal distension. Negative sonographic Prather sign. DATA REPOSITORY: Lab Data Labs: Laboratory Tests Range/Units 02/23/25 02/23/25 02/23/25 06:50 07:18 09:02 WBC (4.4-10.8) 10^3/uL 8.60 RBC (3.93-5.22) 10^6/uL 4.74 Hgb (11.2-15.7) g/dL 14.8 Hct (36.0-46.0) % 43.4 MCV (80-95) fL 92 MCH (27.0-33.0) pg 31.2 MCHC (32.0-36.0) % 34.1 RDW (11.7-14.6) % 13.1 Plt Count (130-400) 10^3/uL MPV (8.0-11.0) fL Immature Gran % % 0.6 Neutrophils % % 75.6 Lymphocytes % % 9.9 Monocytes % % 13.3 Eosinophils % % 0.1 Basophils % % 0.5 Nucleated RBC % (0.0-0.3) % 0.0 Absolute Neutrophils (1.2-6.7) 10^3/uL 6.51 Absolute Lymphocytes (1.2-3.4) 10^3/uL 0.85 L Absolute Monocytes (0.1-0.8) 10^3/uL 1.14 H Absolute Eosinophils (0.0-0.7) 10^3/uL 0.01 Absolute Basophils (0.0-0.2) 10^3/uL 0.04 PT (9.1-11.1) sec 11.4 H INR (0.9-1.1) 1.1 APTT (20.6-30.2) sec 24.5 Sodium (136-145) mmol/L 142 Potassium (3.5-5.1) mmol/L 3.9 Chloride (98-107) mmol/L 106 Carbon Dioxide (21.0-32.0) mmol/L 26.0 Anion Gap (3-11) mmol/L 10.0 BUN (7-18) mg/dL 15 Creatinine (0.55-1.02) mg/dL 0.9 Est GFR (CKD-EPI 2020) (mL/min/1.73m2) 76.44 Glucose (74-106) mg/dL 133 H Calcium (8.5-10.1) mg/dL 9.8 Magnesium (1.8-2.4) mg/dL 1.6 L Total Bilirubin (0.2-1.0) mg/dL 3.3 H GGT (5-55) U/L AST (15-37) U/L 41 H ALT (14-59) U/L 21 Alkaline Phosphatase (46-116) U/L 90 Troponin I (<or=51) ng/L 13 14 Total Protein (6.4-8.2) g/dL 6.8 Albumin (3.4-5.0) g/dL 3.2 L Range/Units 02/23/25 02/23/25 10:05 10:25 WBC (4.4-10.8) 10^3/uL RBC (3.93-5.22) 10^6/uL Hgb (11.2-15.7) g/dL Hct (36.0-46.0) % MCV (80-95) fL MCH (27.0-33.0) pg MCHC (32.0-36.0) % RDW (11.7-14.6) % Plt Count (130-400) 10^3/uL MPV (8.0-11.0) fL Immature Gran % % Neutrophils % % Lymphocytes % % Monocytes % % Eosinophils % % Basophils % % Nucleated RBC % (0.0-0.3) % Absolute Neutrophils (1.2-6.7) 10^3/uL Absolute Lymphocytes (1.2-3.4) 10^3/uL Absolute Monocytes (0.1-0.8) 10^3/uL Absolute Eosinophils (0.0-0.7) 10^3/uL Absolute Basophils (0.0-0.2) 10^3/uL PT (9.1-11.1) sec INR (0.9-1.1) APTT (20.6-30.2) sec Sodium (136-145) mmol/L Potassium (3.5-5.1) mmol/L Chloride (98-107) mmol/L Carbon Dioxide (21.0-32.0) mmol/L Anion Gap (3-11) mmol/L BUN (7-18) mg/dL Creatinine (0.55-1.02) mg/dL Est GFR (CKD-EPI 2020) (mL/min/1.73m2) Glucose (74-106) mg/dL Calcium (8.5-10.1) mg/dL Magnesium (1.8-2.4) mg/dL Total Bilirubin (0.2-1.0) mg/dL GGT (5-55) U/L 37 AST (15-37) U/L ALT (14-59) U/L Alkaline Phosphatase (46-116) U/L Troponin I (<or=51) ng/L 12 Total Protein (6.4-8.2) g/dL Albumin (3.4-5.0) g/dL ECG Data Interpretation: Rhythm: NSR Rate: 99 [place]: Leftward axis Intervals: Prolonged QTc of 539 ms Other findings: No acute ST segment or T wave changes to suggest acute ischemia, left bundle branch block, which as compared to prior EKG from 2015 is new. PFSH All Active Problems (Updated 02/23/25 @ 14:33 by Je Mantilla MD) Atypical chest pain (Acute) Medical History Breast cancer Esophageal varices HTN (hypertension) Hypothyroid Portal hypertension Surgical History H/O breast surgery Social History Smoking/Tobacco Use Status: Former Tobacco Use Smoking risk assessment performed?: Yes Alcohol Intake: former Drug use: Never Substance use type: does not use Details: was a 4-5 drinka day drinker and stopped 4 months ago then drank for the first time again this weekend. Housing: house Do you feel safe at home: Yes Do you feel safe in your relationship?: Yes
[2025-02-23 07:18] LABS: Abs Immature Grans 0.05 10^3/uL (0.0-0.06); HCT 43.4 % (36.0-46.0); HGB 14.8 g/dL (11.2-15.7); Immature Grans % 0.6 %; MCH 31.2 pg (27.0-33.0); MCHC 34.1 % (32.0-36.0); MCV 92 fL (80-95); RBC 4.74 10^6/uL (3.93-5.22); RDW 13.1 % (11.7-14.6); RDW-SD 43.6 fL; WBC 8.60 10^3/uL (4.4-10.8)
[2025-02-23] MEDS: HYDROmorphone 2 MG/ML SYR 1 MG IM (07:47)
[2025-02-23 07:49] LABS: ALT 21 U/L (14-59); AST 41 U/L (15-37); Albumin 3.2 g/dL (3.4-5.0); Alkaline Phosphatase 90 U/L (46-116); Anion Gap 10.0 mmol/L (3-11); BUN 15 mg/dL (7-18); Bilirubin, Total 3.3 mg/dL (0.2-1.0); CO2 26.0 mmol/L (21.0-32.0); Calcium 9.8 mg/dL (8.5-10.1); Chloride 106 mmol/L (98-107); Estimated GFR 76.44 (mL/min/1.73m2); Glucose 133 mg/dL (74-106); Magnesium 1.6 mg/dL (1.8-2.4); Potassium 3.9 mmol/L (3.5-5.1); Sodium 142 mmol/L (136-145); Total Protein 6.8 g/dL (6.4-8.2); Troponin I 13 ng/L (<or=51)
[2025-02-23] MEDS: Normal Saline - Diluent 50 ML VIAL IJ ×2 (09:06→09:30)
[2025-02-23] MEDS: Omnipaque 350 MG/ML 100 ML BTL IJ ×2 (09:06→09:28)
[2025-02-23] MEDS: MAGNESIUM SULFATE 1 GM/100 ML BAG IV_INF (09:07)
[2025-02-23] MEDS: Normal Saline Flush 10 ML SYR IVP (09:30)
--- NOTE | 2025-02-23 09:32 | DI.CT_ITS ---
Exam(s) CT CHEST PE CTA EXAM: CT CHEST PE CTA CLINICAL HISTORY: Hx of VTE/Malignancy presenting w/ chest pain/SOB. TECHNIQUE: Imaging Protocol: Axial CT angiography was performed with multi- slice acquisition and multi-planar reconstructions as well as axial, coronal and sagittal MIP reconstructions. Computer aided detection (CAD) was utilized. CONTRAST MATERIAL: Intravenous: Omnipaque 350 Contrast volume:200 ml total. The first IV infiltrated in the patient returned with a new IV. COMPARISON: CR XR CHEST 1V IN DI DEPT from 02/23/2025 FINDINGS: Pulmonary Arteries: Prominent. No evidence of filling defect to suggest pulmonary emboli. Mediastinum and Karina: No dominant adenopathy or fluid collection. Pulmonary parenchyma: Mildly limited by respiratory motion and expiratory changes. No consolidation or dominant measurable mass. Pleura: No effusion or pneumothorax. Heart: The heart is mildly dilated. Moderate coronary artery calcifications are seen. Aorta: Thoracic aorta non-dilated. No dissection. Tortuous. Upper abdomen: The liver shows enlargement of the left lobe. There is recanalization of the umbilical vein. Findings care consistent with cirrhosis. The spleen is enlarged, measuring over 15 cm. A stone is noted in the gallbladder. Small hiatal hernia. Bones: Mild scoliosis and degenerative changes. Tubes, Catheters, and Lines: None Soft tissues: Right breast implant. The soft tissues of the left chest are partially obscured from view. There is scarring and fat necrosis noted in the left breast. IMPRESSION: No evidence of pulmonary embolism. Pulmonary arteries are prominent. The lungs are grossly clear. Cirrhotic appearing liver. Splenomegaly. RADIATION DOSE DELIVERED: 487.23mGy.cm Total DLP DATA REPOSITORY: All CT scans at this facility are submitted to the National Radiology Data Registry (NRDR) Dose Index Registry (DIR) with the [employer] (ACR). RADIATION OPTIMIZATION: All CT scans at this facility use at least one of these dose optimization techniques: automated exposure control; mA and/or kV adjustment per patient size (includes targeted exams where dose is matched to clinical indication); or iterative reconstruction.
[2025-02-23 09:33] LABS: Troponin I 14 ng/L (<or=51)
--- NOTE | 2025-02-23 09:45 | RT.EKG_ITS ---
APPROVED REPORT Exam: Resting ECG Reason for Exam: telemetry change Patient Location: E HR:92 bpm ECG Measurements Heart Rate 92 AXIS UT 184 P 56 QRSd 163 QRS -26 QT 434 T 126 QTc 539 Conclusion Sinus rhythm...normal P axis, V-rate 60- 99 Left bundle branch block...QRSd>120, broad/notched R ST elevation secondary to IVCD...Multiple VCG criteria No STEMI
[2025-02-23 10:13] LABS: INR 1.1 (0.9-1.1); PTT Activated 24.5 sec (20.6-30.2); Prothrombin Time 11.4 sec (9.1-11.1)
[2025-02-23 10:20] LABS: GGT 37 U/L (5-55)
--- NOTE | 2025-02-23 10:30 | DI.US_ITS ---
Exam(s) US ABDOMEN LIMITED EXAM: US ABDOMEN LIMITED CLINICAL HISTORY: RUQ tenderness TECHNIQUE: Ultrasound abdomen performed using standard protocol. COMPARISON: CT CT CHEST PE CTA from 02/23/2025 FINDINGS: Exam is limited by the patient's body habitus. LIVER: Normal size. Coarse liver echotexture. Varices noted in the region of the falciform ligament. No focal liver lesions are seen. GALLBLADDER: 2 calcified stones were noted which appears to be parent to the gallbladder wall. No evidence of wall thickening. No pericholecystic fluid identified. PRATHER'S SIGN: Negative. BILIARY SYSTEM: No intrahepatic or extrahepatic biliary ductal dilation. KIDNEY: The right kidney is normal in size. No evidence of renal calculi. No evidence of hydronephrosis. No renal mass or cyst identified. PANCREAS: Obscured. ABDOMINAL AORTA AND IVC: Visualized portions normal caliber. ASCITES: None seen. IMPRESSION: Cirrhotic appearing liver with varices. Nonmobile calcifications inherent to the gallbladder wall could represent calcified polyps versus adherent stones. No definite wall thickening or abnormal distension. Negative sonographic Prather sign. DATA REPOSITORY:
[2025-02-23 11:06] LABS: Troponin I 12 ng/L (<or=51)
[2025-02-23 13:57] LABS: Lipase 31 U/L (<78)
== END 2025-02-23 15:20 | disposition home or self-care (01) ==
PROVIDERS: Emergency Provider General Practice; PCP Nurse Practitioner Adult Health
DX: R07.89 Other chest pain (principal); M54.6 Pain in thoracic spine; R06.02 Shortness of breath; Z87.19 Personal history of other diseases of the digestive system
CPT/HCPCS: 36415; 71275; 80053; 83690; 93005; 96365; 96375; 99285; 71045; 76705; 82977; 83735; 84484; 85025; 85610; 85730; 93010; 99284; J1171; J3475; J3490

== ENCOUNTER 2025-02-24 07:08 | Inpatient (IN) | payer OTHER, SELFPAY ==
[2025-02-24] VITALS (18 sets, daily range): BP systolic 106–142; BP diastolic 69–86; PULSE 79–103; RESP 16–36; TEMP 36.4–37; O2SAT 87–97
--- NOTE | 2025-02-24 07:14 | W.ED.GENAD ---
Discharge Plan Disposition Patient Disposition: Admit to [facility] Discharge Details Clinical Impression: Acute hypoxemic respiratory failure, Anasarca, Mass of cecum, Distended umbilical veins, Hepatic cirrhosis, Hyperbilirubinemia, Elevated INR Admit Date/Time: 02/24/25 11:22 Admit Provider: Dominic Ruiz Attending Provider: Dominic Ruiz Primary Care Provider: Beth Baptiste ED Provider: Fabrizio Diaz HPI General Date/Time Provider Initiated Documentation: 02/24/25 07:14. HPI Narrative: MDM This is an uncomfortable normothermic and not tachycardic 54-year-old female history of breast malignancy and diverticulitis now with right lower quadrant tenderness concerning for the possibility of appendicitis versus diverticulitis for which patient will undergo CT scan of her abdomen. No rash to abdomen to suggest zoster. No pain out of proportion to suggest necrotizing soft tissue infection. Patient does have remote history of nephrolithiasis so ureterolithiasis is also on the differential. Patient has not been vomiting to suggest small bowel obstruction nor Vanita-Elaine tear. No dysuria nor frequency to suggest UTI so we will defer urinalysis. Given back pain associated with abdominal pain we will also obtain ECG and troponin testing to assess for ACS. No loss of bowel or bladder control to suggest cauda equina syndrome. No history of trauma to back to suggest increased risk for spinal fracture. Patient does have a history of malignancy but has no midline cervical thoracic nor lumbar spinal tenderness to suggest increased risk for pathological fracture so I do not feel the patient requires a CT scan of her back. No fevers to suggest spinal epidural abscess. I considered sepsis however patient is reassuring vitals and denies fevers so I did not feel that patient required broad-spectrum antibiotics blood cultures nor assessment of her lactate. She does have cholelithiasis however no right upper quadrant tenderness. My suspicion is low for acute cholecystitis. She is not an alcoholic to suggest pancreatitis however she does have an elevated BMI we will obtain a lipase to assess for pancreatitis. Patient does have some lower extremity pitting edema and is borderline hypoxic on room air. Will obtain proBNP and portable chest x-ray. 9:35 AM CBC lacks anemia or leukocytosis. CBC shows new onset thrombocytopenia. Comprehensive metabolic panel showing no LILIYA. New marked hyperbilirubinemia with a T. bili of 10.5 compared to 3.3 yesterday. Mild anion gap. CBC shows cholelithiasis. Nondilated CBD however given hyperbilirubinemia we will obtain repeat right upper quadrant ultrasound. Fatty tumor in cecum at level of ileocecal valve. 10:05 AM Patient had reassuring delta troponins. Her proBNP is elevated. She did have some B-lines on ultrasound and given her new acute respiratory failure with hypoxia we will plan on providing her with furosemide following her right upper quadrant ultrasound given her CT scan concerning for the possibility of acute cholecystitis. I met with the patient. I explained that radiology read concerning for a fatty tumor evident in the cecum. She had no bowel obstruction. We discussed that she may benefit from further evaluation as an outpatient with a colonoscopy to assess for tissue diagnosis. For the moment we will plan on hospitalization. She is not wheezing and does not have a history of COPD so I do not feel that she requires a venous blood gases as I am not suspicious for an acute exacerbation of reactive airway disease. Given no fevers and no shifting fluid wave I did not feel the patient required an emergent paracentesis as my suspicion for SBP was low. Ultrasound did show gallbladder wall thickening however in the absence of significant right upper quadrant tenderness and in the absence of pericholecystic fluid and leukocytosis my suspicion for acute cholecystitis is low. Her mild gallbladder wall thickening may be reactive in the setting of her ascites. I was in touch with Dr. Ruiz who graciously agreed to accept the patient for hospitalization. 10:40 AM Patient had mildly elevated INR. This was new compared to yesterday. She had a normal reticulocyte count. Her LDH was markedly elevated. Her right upper quadrant ultrasound was not consistent with acute cholecystitis. Will treat her with 40 mg of IV furosemide and reach out to hospitalist with request for hospitalization. HPI This is a patient with a history of breast cancer, kidney stones, gallstones, nonalcoholic steatohepatitis (FISHER), and autoimmune gastritis (AG) presenting with back pain and abdominal pain. On Friday afternoon, the patient began experiencing tightness in her chest, which extended to her shoulder blades. She attempted to alleviate the discomfort by sleeping but found no relief and had difficulty sleeping. The next day, she sought medical attention due to concerns of a potential heart attack. A series of tests were conducted, and Dr. Mantilla prescribed Dilaudid, but it was sent to an incorrect pharmacy, preventing her from obtaining the medication. She endorses pain, particularly in her abdomen and right side. She reports no episodes of vomiting or nausea. Her appetite has decreased due to her overall unwell feeling, and her last bowel movement was yesterday morning, which was minimal. She reports no burning sensation during urination. She has a history of breast cancer and underwent a flap procedure. She also has a history of kidney stones, but the current pain does not resemble that associated with kidney stones. She has been diagnosed with gallstones and nonalcoholic steatohepatitis. Recently, she was diagnosed with autoimmune gastritis (AG). Exam General: Well-appearing in no acute distress speaking in complete sentences. Head: Normocephalic, atraumatic. Eye: Extraocular eye movements intact. No conjunctival injection. No scleral icterus. Ear, nose, mouth, throat: Grossly normal inspection. Normal voice, handling secretions normally. Neck: Trachea midline. No midline cervical spinal tenderness., Cardiovascular: Well-perfused distal extremities. Regular rate and rhythm Respiratory: Nonlabored respiration. Clear lungs bilaterally. Back: No midline thoracic nor lumbar spinal tenderness. Gastrointestinal: Nondistended abdomen. Right-sided abdominal tenderness. No rebound. No guarding. No rash to abdomen. Musculoskeletal: Mild 1+ bilateral lower extremity pitting edema. Moving all 4 extremities spontaneously. Skin: Normal for age and race, grossly normal temperature and turgor. No acute rash. Neurologic: Alert and appropriate, no apparent acute deficits. Psychiatric: Mood and manner are appropriate. Grooming and personal hygiene are appropriate. Related Data Home Medications ?Medication ?Instructions ?Recorded ?Confirmed anastrozole 1 mg tablet 1 mg PO DAILY 01/16/21 02/24/25 bumetanide 2 mg tablet 2 mg PO DAILY 01/16/21 02/24/25 carvedilol 6.25 mg tablet 30 mg PO ONCE 01/16/21 02/24/25 cholecalciferol (vitamin D3) 125 125 mcg PO DAILY 01/16/21 02/24/25 mcg (5,000 unit) tablet (Vitamin D3) duloxetine 60 mg capsule,delayed 20 mg PO DAILY 01/16/21 02/24/25 release (Cymbalta) fexofenadine 30 mg tablet 30 mg PO DAILY 01/16/21 02/24/25 levothyroxine 50 mcg tablet 50 mcg PO DAILY 01/16/21 02/24/25 (Synthroid) potassium 20 mg chewable tablet 30 mg PO DAILY 01/16/21 02/24/25 Lactobacillus acidophilus 10 10,000 mmu cells PO DAILY 10/30/21 02/24/25 billion cell capsule (Probiotic) albuterol sulfate 90 mcg/actuation 2 puff inhalation Q6H PRN 10/30/21 02/24/25 aerosol inhaler epinephrine 0.3 mg/0.3 mL 0.3 mg (0.3 mL) IM ONCE PRN 10/30/21 02/24/25 injection, auto-injector (EpiPen) anaphylaxis #1 ea fluticasone propionate 50 2 spray intranasal DAILY PRN 10/30/21 02/24/25 mcg/actuation nasal spray,suspension (Flonase Allergy Relief) folic acid 1 mg tablet 1 mg PO DAILY 10/30/21 02/24/25 iron,carbonyl 65 mg-vitamin C 125 1 tab PO DAILY 10/30/21 02/24/25 mg tablet,delayed release (Vitron-C) magnesium chloride 71.5 mg 71.5 mg PO DAILY 10/30/21 02/24/25 (magnesium chloride) tablet,delayed release (Slow-Mag) pantoprazole 40 mg tablet,delayed 40 mg PO DAILY 10/30/21 02/24/25 release polysaccharide iron complex 150 mg 150 mg PO DAILY 10/30/21 02/24/25 iron tablet bupropion HCl 150 mg 24 hr tablet, 450 mg PO DAILY 02/23/25 02/24/25 extended release (Wellbutrin XL) hydromorphone 2 mg tablet 1 mg (1/2 x 2 mg) PO Q6H PRN pain 02/23/25 02/24/25 (Dilaudid) #6 tabs lactulose 15 - 30 ml PO BID PRN 02/23/25 02/24/25 levothyroxine 300 mcg PO .Weekly 02/23/25 02/24/25 nystatin 100,000 unit/gram topical 1 applic topical BID 02/23/25 02/24/25 powder rifaximin 550 mg tablet 550 mg PO BID 02/23/25 02/24/25 Previous Rx's ?Medication ?Instructions ?Recorded epinephrine 0.3 mg/0.3 mL 0.3 mg (0.3 mL) IM ONCE PRN 10/30/21 injection, auto-injector (EpiPen) anaphylaxis #1 ea hydromorphone 2 mg tablet 1 mg (1/2 x 2 mg) PO Q6H PRN pain 02/23/25 (Dilaudid) #6 tabs Allergies Allergy/AdvReac Type Severity Reaction Status Date / Time levofloxacin (From Levaquin) Allergy Intermediate Other (See Unverified 02/24/25 07:15 Comment) Sulfa (Sulfonamide Allergy Intermediate Skin Rash Unverified 02/24/25 07:15 Antibiotics) tamoxifen Allergy Intermediate Skin Rash Unverified 02/24/25 07:15 vancomycin Allergy Intermediate Unknown Unverified 02/24/25 07:15 doxycycline Allergy Skin Rash Verified 02/24/25 07:15 linezolid Allergy Hives Verified 02/24/25 07:15 adhesive tape AdvReac Hives Verified 02/24/25 07:15 ciprofloxacin AdvReac Skin Rash Verified 02/24/25 07:15 General Stated Complaint: Nk/Back Pain [place]: 4 Course Vital Signs Vital signs: Vital Signs Temperature 36.6 C 02/24/25 07:11 Pulse 92 H 02/24/25 07:11 Respiratory Rate 20 02/24/25 07:11 Blood Pressure 142/76 H 02/24/25 07:11 Pulse Oximetry 90 L 02/24/25 07:11 Temperature 36.6 C 02/24/25 07:11 Pulse 92 H 02/24/25 07:11 Respiratory Rate 20 02/24/25 07:11 Blood Pressure 142/76 H 02/24/25 07:11 Pulse Oximetry 90 L 02/24/25 07:11 Medical Decision Making Quality:SDOH Health Related Social Needs: Health related social needs lonely/isolated Health related social needs details couldn't work for a month PFSH All Active Problems (Updated 02/24/25 @ 13:41 by Abi Evans APRN) Abdominal pain (Acute) Elevated INR (Acute) Hyperbilirubinemia (Acute) Hepatic cirrhosis (Acute) Distended umbilical veins (Acute) Mass of cecum (Acute) Anasarca (Acute) Acute hypoxemic respiratory failure (Acute) Atypical chest pain (Acute) Medical History Breast cancer Esophageal varices HTN (hypertension) Hypothyroid Portal hypertension Surgical History H/O breast surgery Social History Smoking/Tobacco Use Status: Former Tobacco Use Smoking risk assessment performed?: Yes Alcohol Intake: former Drug use: Never Substance use type: does not use Housing: house Do you feel safe at home: Yes Do you feel safe in your relationship?: Yes POCUS Exam (ED) Limited Cardiac Exam DATE OF EXAM: 02/24/25 TIME OF EXAM: 10:07 PROVIDER THAT PERFORMED THE STUDY: Fabrizio Diaz IS THIS A REPEAT EXAM DURING THIS ENCOUNTER: no REASON FOR EXAM: Dyspnea VISUALIZED STRUCTURES: Four Chambers, Left ventricle and LVOT VIEW OBTAINED: Parasternal long-axis and Subxiphoid PERTINENT FINDINGS/IMPRESSION: No pericardial effusion and No RV dilation DIFFERENTIAL DIAGNOSES: Aortic outflow track less than 4 cm, good squeeze, no significant pericardial effusion. Bilateral B-lines. Could not tolerate apical four-chamber view. Exam complete
--- NOTE | 2025-02-24 07:15 | RT.EKG_ITS ---
APPROVED REPORT Exam: Resting ECG Reason for Exam: Chest pain Patient Location: E HR:86 bpm ECG Measurements Heart Rate 86 AXIS MD 170 P 62 QRSd 163 QRS 17 QT 429 T 85 QTc 513 Conclusion Sinus rhythm...normal P axis, V-rate 60- 99 Left bundle branch block...QRSd>120, broad/notched R ST elevation secondary to IVCD...Multiple VCG criteria No Occlusion MA
--- NOTE | 2025-02-24 07:30 | DI.CT_ITS ---
Exam(s) CT ABDOMEN PELVIS W EXAM: CT ABDOMEN PELVIS W CLINICAL HISTORY: Right lower quadrant pain. TECHNIQUE: Imaging Protocol: Axial computed tomography images with coronal and sagittal reformatted images were created and reviewed CONTRAST MATERIAL: Intravenous: Omnipaque-350 100cc Oral: None COMPARISON: CT CT CHEST PE CTA from 02/23/2025 CR XR CHEST 1V IN DI DEPT from 02/24/2025 FINDINGS: VISUALIZED LUNG BASES: No nodules nor pleural effusions evident. Right breast prosthesis noted. ABDOMEN: There is mild ascites in the upper abdomen and there is more prominent free fluid in the pelvis. There are lower esophageal varices and there is also evidence of portal hypertension, including recanalization of the umbilical vein. LIVER: The liver appears somewhat cirrhotic. No dilated intrahepatic ducts. GALLBLADDER/BILIARY: Cholelithiasis. Single calcified gallstone again noted. The gallbladder wall appears slightly thickened and there is some mild pericholecystic fluid. Is difficult to delineate acute cholecystitis from fluid related to the ascites here. CBD is not dilated. PANCREAS: No evidence of pancreatic mass nor dilatation of the pancreatic duct. SPLEEN: Splenomegaly is evident. No splenic lesions. Splenic and portal veins are patent. ADRENALS: There are no significant adrenal masses. KIDNEYS:No cysts evident. No solid renal masses. No calculi nor hydronephrosis.. ABDOMINAL AORTA: Abdominal aorta is not enlarged. LYMPH NODES:There is no retroperitoneal nor paraaortic adenopathy. ABDOMINAL WALL: No evidence of significant anterior abdominal wall nor inguinal hernia. There are multiple collateral veins related portal hypertension evident in the subcutaneous fat as well as within the space of the atrophied right rectus abdominus muscle. These veins are patent/not thrombosed. GI: There is no evidence of bowel obstruction, free air, nor abscess. There is diverticulosis evident in the descending-left colon as well as within the sigmoid. No obvious evidence of acute diverticulitis. There is a fatty mass in the cecum at the level of the ileocecal valve which measures 5.5 by 2.5 by 3 cm. Probable ileocecal valve lipoma. There is no small bowel obstruction. PELVIS: GI: The appendix is not identified as a separate structure. There is no evidence of obvious appendicitis. Sigmoid diverticulosis without evidence of acute diverticulitis. LYMPH NODES: There is no intrapelvic nor inguinal adenopathy. REPRODUCTIVE: Uterus normal size. No adnexal masses. URINARY BLADDER: No calculi nor obvious masses evident OSSEOUS: No fractures. There is in rib projecting bony growth off the right iliac bone adjacent to the SI joint which measures 1.8 by 2 cm. This is probably related to degenerative changes in the ipsilateral SI joint. There are no lytic appearing osseous lesions. There are multilevel facet arthropathy changes in the lumbar spine. There is mild degenerative anterolisthesis of L4 upon L5, without significant disc space narrowing at any level in the lumbar spine. No compression fractures. IMPRESSION: 1. There is hepatic cirrhosis, splenomegaly, ascites, at and portal venous hypertension, including esophageal varices and recanalization of the umbilical vein. 2. Cholelithiasis. Mild pericholecystic fluid may be related to cholecystitis or possibly just related to the generalized ascites. Correlation with clinical findings on blood work recommended. The CBD is not dilated. There are no dilated intrahepatic ducts. 3. The appendix is not able to be identified. No obvious evidence of appendicitis. 4. Diverticulosis of the left side of the colon and sigmoid but without evidence of obvious acute diverticulitis. 5. Fatty tumor evident in the cecum at the level of the ileocecal valve. This measures approximately 55 x 25 x 30 mm. There is no small bowel obstruction. Other findings as above. Findings discussed with ER physician 02/24/2025 at 9:20 a.m. RADIATION DOSE DELIVERED: 1,395.47mGy.cm Total DLP DATA REPOSITORY: All CT scans at this facility are submitted to the National Radiology Data Registry (NRDR) Dose Index Registry (DIR) with the [employer] ([employer]). RADIATION OPTIMIZATION: All CT scans at this facility use at least one of these dose optimization techniques: automated exposure control; mA and/or kV adjustment per patient size (includes targeted exams where dose is matched to clinical indication); or iterative reconstruction.
[2025-02-24] MEDS: Normal Saline - Diluent 50 ML VIAL IJ (08:31)
[2025-02-24] MEDS: Omnipaque 350 MG/ML 100 ML BTL IJ (08:33)
[2025-02-24] MEDS: Normal Saline Flush 10 ML SYR IVP ×5 (08:34→20:13)
[2025-02-24 08:35] LABS: Abs Immature Grans 0.01 10^3/uL (0.0-0.06); HCT 38.9 % (36.0-46.0); HGB 13.5 g/dL (11.2-15.7); MCH 31.5 pg (27.0-33.0); MCHC 34.7 % (32.0-36.0); MCV 91 fL (80-95); MPV 11.4 fL (8.0-11.0); Platelet Count 65 10^3/uL (130-400); RBC 4.29 10^6/uL (3.93-5.22); RDW 13.3 % (11.7-14.6); RDW-SD 43.7 fL; WBC 4.63 10^3/uL (4.4-10.8)
--- NOTE | 2025-02-24 08:50 | DI.RAD_ITS ---
Exam(s) XR CHEST 1V IN DI DEPT EXAM: XR CHEST 1V IN DI DEPT CLINICAL HISTORY: Chest pain. TECHNIQUE: 2D digital imaging was performed. COMPARISON: CR XR CHEST 1V IN DI DEPT from 02/23/2025 FINDINGS: Single AP portable view. Heart size is upper normal. The mediastinum is not widened. Lungs are clear. No infiltrates nor obvious pleural effusions. Clips in left axilla again noted IMPRESSION: No acute pulmonary findings on this single AP portable view of the chest. DATA REPOSITORY: RADIATION DOSE DELIVERED:
[2025-02-24] MEDS: HYDROmorphone 2 MG/ML SYR 0.5 MG IVP (09:00)
[2025-02-24 09:13] LABS: Immature Grans % 0.0 %
[2025-02-24 09:15] LABS: RBC Morphology Normal
[2025-02-24 09:22] LABS: ALT 50 U/L (14-59); AST 110 U/L (15-37); Albumin 2.9 g/dL (3.4-5.0); Alkaline Phosphatase 103 U/L (46-116); Anion Gap 11.2 mmol/L (3-11); BUN 21 mg/dL (7-18); Bilirubin, Total 10.2 mg/dL (0.2-1.0); CO2 24.8 mmol/L (21.0-32.0); Calcium 9.2 mg/dL (8.5-10.1); Chloride 101 mmol/L (98-107); Estimated GFR 67.36 (mL/min/1.73m2); Glucose 106 mg/dL (74-106); Lipase 15 U/L (<78); Potassium 3.6 mmol/L (3.5-5.1); Sodium 137 mmol/L (136-145); Total Protein 6.2 g/dL (6.4-8.2); Troponin I 14 ng/L (<or=51)
--- NOTE | 2025-02-24 09:30 | DI.US_ITS ---
Exam(s) US ABDOMEN LIMITED EXAM: US ABDOMEN LIMITED CLINICAL HISTORY: Cholelithiasis TECHNIQUE: Ultrasound abdomen performed using standard protocol. COMPARISON: US POCUS EXAM from 02/24/2025 FINDINGS: There is no obvious ascites evident in the right upper quadrant of the abdomen. LIVER: There are no hepatic lesions evident nor dilatation of intrahepatic ducts. However, there are multiple dilated veins seen, related to the portal hypertension here. This patient has a recanalized umbilical vein, as best seen on the recent CT scan. GALLBLADDER/BILIARY: There is a mild amount of sludge in the gallbladder lumen. The single small gallstone seen on CT scan is actually difficult to visualize on the ultrasound. However, the gallbladder wall appears thickened measuring 5-6 mm. There is no obvious pericholecystic fluid. The common hepatic duct isminimally prominent, measuring 7mm at the level of coby hepatis. PANCREAS: There is no evidence of pancreatic mass nor dilatation of the pancreatic duct. RIGHT KIDNEY:No evidence of solid mass, calculus, nor hydronephrosis. No cortical cysts evident. IMPRESSION: 1. Mild sludge in the gallbladder. The small calculus seen on the CT scan is difficult to visualize on ultrasound. There is mild thickening of the gallbladder wall. There is slight dilatation of the common hepatic duct which measures 7-8 mm at the level the coby hepatis. 2. The small amount of ascites evident in the upper abdomen seen on CT scan is difficult to visualize on the ultrasound. 3. See separate CT report. Findings discussed by phone with ER physician 02/24/2025 at 10:35 a.m. DATA REPOSITORY:
[2025-02-24 09:40] LABS: NT-proBNP 2417 pg/mL (<300)
[2025-02-24 09:59] LABS: INR 1.4 (0.9-1.1); Prothrombin Time 13.8 sec (9.1-11.1)
[2025-02-24 09:59] LABS: Troponin I 13 ng/L (<or=51)
[2025-02-24 10:08] LABS: LDH 365 U/L (81-234)
[2025-02-24] MEDS: Furosemide 40 MG/4 ML VIAL IVP ×2 (10:58→15:39)
--- NOTE | 2025-02-24 11:12 | W.PM.HP.N ---
Date of service: 02/24/25 Time of Service: 11:12 Assessment and Plan Assessment and plan (1) Acute hypoxemic respiratory failure: Status: Acute Assessment and plan: Not on home oxygen now requires oxygen via nasal canula 3 liters /min for sat at 88% - goal sat >92% (2) Elevated brain natriuretic peptide (BNP) level: Status: Acute Assessment and plan: BNP and LDH elevation in the setting of point 1; no previous history of CHF Echo in AM Continue IV Lasix labs in AM (3) Abdominal pain: Status: Acute Assessment and plan: In the setting of cholelithiasis VS cholecystitis w/o fever or leukocytosis Surgery consult PRN hydromporphone PRN compazine for nausea (4) Hyperbilirubinemia: Status: Acute Assessment and plan: CBD dilation and possible cholelithiasis and as above CMP in AM (5) Hepatic cirrhosis: Status: Acute Assessment and plan: History of metabolic dysfunction associated steatohepatitis ( MASLD) / (FISHER) and now portal vein congestion - might be exacerbated as evidenced by transaminitis Hepatitis profile sent (6) HTN (hypertension): Assessment and plan: on home medicine (7) Elevated INR: Status: Acute Assessment and plan: INR 1.4 will continue to monitor TEDS for DVT prophylaxis (8) Breast cancer: Assessment and plan: with total mastectomy on home med regimen (9) Hypothyroid: Assessment and plan: On home med regimen- TSH stable (10) Ascites: Status: Acute Assessment and plan: As per imaging with portal system hypertension On IV lasix (11) Cholelithiasis: Status: Acute Assessment and plan: As per CT imaging w no obvious pericholecystic fluid.on US no acute cholecystitis despite gallbladder wall thickening which may be d/t ascites (12) Mass of cecum: Status: Acute Assessment and plan: Fatty tumor in cecum at level of ileocecal valve on imaging Outpatient colonoscopy discussed in the ED Surgery consulted inpatient Discussed with Dr. Ruiz History of Present Illness Narrative: This 54 yo female patient with a PMHx breast cancer with total mastectomy, kidney stones, gallstones, nonalcoholic steatohepatitis (FISHER), and autoimmune gastritis (AG) presenting with back pain and abdominal pain. The patient was seen i the ED onTuesday and discharge on oral hydromorphone for abdominal/ chest pain s/p r/o ACS. Work up in the ED was transaminitis, T. billirubin at 10.2, elevated LDH, BNP 2417. ACS negative as per EKG and troponin. ABD and Pelvis CT findings: 1. There is hepatic cirrhosis, splenomegaly, ascites, and portal venous hypertension, including esophageal varices and recanalization of the umbilical vein. 2. Cholelithiasis. Mild pericholecystic fluid may be related to cholecystitis or possibly just related to the generalized ascites. Correlation with clinical findings on blood work recommended. The CBD is not dilated. There are no dilated intrahepatic ducts. 3. The appendix is not able to be identified. No obvious evidence of appendicitis. 4. Diverticulosis of the left side of the colon and sigmoid but without evidence of obvious acute diverticulitis. 5. Fatty tumor evident in the cecum at the level of the ileocecal valve. This measures approximately 55 x 25 x 30 mm. There is no small bowel obstruction. ABD US findings: 1. Mild sludge in the gallbladder. The small calculus seen on the CT scan is difficult to visualize on ultrasound. There is mild thickening of the gallbladder wall. There is slight dilatation of the common hepatic duct which measures 7-8 mm at the level the coby hepatis. 2. The small amount of ascites evident in the upper abdomen seen on CT scan is difficult to visualize on the ultrasound. IV lasix initiated in the ED. Patient remained oxygen dependant s/p diuresis to maintain sat >92%. The patient was admitted to the medical surgical floor for acute hypoxic respiratory failure in the setting of CHF as a working diagnosis, transiminitis in the setting cholecystitis, ascites and hepatic cirrhosis. Full code status confirmed. Denied dizziness,fever, headache, chest pain, vomiting , diarrhea or dysuria. Reported chills, nausea, abdominal pain, triggered vomiting 2-3 days ago after insert her finger in her throat. No history of CHF reported. Review of Systems All systems reviewed & are unremarkable except as noted in HPI and below PFSH All Active Problems (Updated 02/24/25 @ 19:44 by Abi Evans APRN) Ascites (Acute) Cholelithiasis (Acute) Elevated brain natriuretic peptide (BNP) level (Acute) Abdominal pain (Acute) Elevated INR (Acute) Hyperbilirubinemia (Acute) Hepatic cirrhosis (Acute) Distended umbilical veins (Acute) Mass of cecum (Acute) Anasarca (Acute) Acute hypoxemic respiratory failure (Acute) Atypical chest pain (Acute) Medical History Breast cancer Esophageal varices HTN (hypertension) Hypothyroid Portal hypertension Surgical History H/O breast surgery Social History Smoking/Tobacco Use Status: Former Tobacco Use Smoking risk assessment performed?: Yes Alcohol Intake: former Drug use: Never Substance use type: does not use Housing: house Do you feel safe at home: Yes Do you feel safe in your relationship?: Yes Meds Allergies and Home Medications Allergies Allergy/AdvReac Type Severity Reaction Status Date / Time levofloxacin (From Levaquin) Allergy Intermediate Other (See Unverified 02/24/25 07:15 Comment) Sulfa (Sulfonamide Allergy Intermediate Skin Rash Unverified 02/24/25 07:15 Antibiotics) tamoxifen Allergy Intermediate Skin Rash Unverified 02/24/25 07:15 vancomycin Allergy Intermediate Unknown Unverified 02/24/25 07:15 doxycycline Allergy Skin Rash Verified 02/24/25 07:15 linezolid Allergy Hives Verified 02/24/25 07:15 adhesive tape AdvReac Hives Verified 02/24/25 07:15 ciprofloxacin AdvReac Skin Rash Verified 02/24/25 07:15 Home Medications ?Medication ?Instructions ?Recorded ?Confirmed ?Type anastrozole 1 mg tablet 1 mg PO DAILY 01/16/21 02/24/25 History bumetanide 2 mg tablet 2 mg PO DAILY 01/16/21 02/24/25 History carvedilol 6.25 mg tablet 30 mg PO ONCE 01/16/21 02/24/25 History cholecalciferol (vitamin D3) 125 125 mcg PO DAILY 01/16/21 02/24/25 History mcg (5,000 unit) tablet (Vitamin D3) duloxetine 60 mg capsule,delayed 20 mg PO DAILY 01/16/21 02/24/25 History release (Cymbalta) fexofenadine 30 mg tablet 30 mg PO DAILY 01/16/21 02/24/25 History levothyroxine 50 mcg tablet 50 mcg PO DAILY 01/16/21 02/24/25 History (Synthroid) potassium 20 mg chewable tablet 30 mg PO DAILY 01/16/21 02/24/25 History Lactobacillus acidophilus 10 10,000 mmu cells PO DAILY 10/30/21 02/24/25 History billion cell capsule (Probiotic) albuterol sulfate 90 mcg/actuation 2 puff inhalation Q6H PRN 10/30/21 02/24/25 History aerosol inhaler epinephrine 0.3 mg/0.3 mL 0.3 mg (0.3 mL) IM ONCE PRN 10/30/21 02/24/25 Rx injection, auto-injector (EpiPen) anaphylaxis #1 ea fluticasone propionate 50 2 spray intranasal DAILY PRN 10/30/21 02/24/25 History mcg/actuation nasal spray,suspension (Flonase Allergy Relief) folic acid 1 mg tablet 1 mg PO DAILY 10/30/21 02/24/25 History iron,carbonyl 65 mg-vitamin C 125 1 tab PO DAILY 10/30/21 02/24/25 History mg tablet,delayed release (Vitron-C) magnesium chloride 71.5 mg 71.5 mg PO DAILY 10/30/21 02/24/25 History (magnesium chloride) tablet,delayed release (Slow-Mag) pantoprazole 40 mg tablet,delayed 40 mg PO DAILY 10/30/21 02/24/25 History release polysaccharide iron complex 150 mg 150 mg PO DAILY 10/30/21 02/24/25 History iron tablet bupropion HCl 150 mg 24 hr tablet, 450 mg PO DAILY 02/23/25 02/24/25 History extended release (Wellbutrin XL) hydromorphone 2 mg tablet 1 mg (1/2 x 2 mg) PO Q6H PRN pain 02/23/25 02/24/25 Rx (Dilaudid) #6 tabs lactulose 15 - 30 ml PO BID PRN 02/23/25 02/24/25 History levothyroxine 300 mcg PO .Weekly 02/23/25 02/24/25 History nystatin 100,000 unit/gram topical 1 applic topical BID 02/23/25 02/24/25 History powder rifaximin 550 mg tablet 550 mg PO BID 02/23/25 02/24/25 History Exam Narrative Exam Narrative: No acute distress , alert and oriented X4, neurologically intact, clear lungs, S1, S2 regular, abdomen is round, slightly distended and firm Results Labs 02/24/25 08:11 02/24/25 08:11 Labs: Laboratory Results - last 24 hr 02/24/25 02/24/25 02/24/25 08:11 09:16 10:30 WBC 4.63 RBC 4.29 Hgb 13.5 Hct 38.9 MCV 91 MCH 31.5 MCHC 34.7 RDW 13.3 Plt Count 65 L MPV 11.4 H Reticulocyte % (Auto) 1.9 Immature Gran % 0.0 Neutrophils % 58.0 Band Neutrophils % 19 Lymphocytes % 9.0 Atypical Lymphs % 2 Monocytes % 7.0 Eosinophils % 0.0 Basophils % 1.0 Metamyelocytes % 4 Nucleated RBC % 0.0 Absolute Neutrophils 3.57 Absolute Lymphocytes 0.51 L Absolute Monocytes 0.32 Absolute Eosinophils 0.00 Absolute Basophils 0.05 RBC Morphology Normal PT 13.8 H INR 1.4 H Sodium 137 Potassium 3.6 Chloride 101 Carbon Dioxide 24.8 Anion Gap 11.2 H BUN 21 H Creatinine 1.0 Est GFR (CKD-EPI 2020) 67.36 Glucose 106 Calcium 9.2 Total Bilirubin 10.2 H AST 110 H ALT 50 Alkaline Phosphatase 103 Lactate Dehydrogenase 365 H Troponin I 14 13 Cancelled NT-Pro-B Natriuret Pep 2417 H Total Protein 6.2 L Albumin 2.9 L Lipase 15 Last Vital Signs Temp 36.6 C 02/24/25 07:11 Pulse 92 H 02/24/25 07:11 Resp 20 02/24/25 07:11 BP 142/76 H 02/24/25 07:11 Pulse Ox 94 02/24/25 09:10 Time Spent Time spent with Patient: >75 minutes Time was spent: preparing to see the patient(eg.review tests), obtaining and/or reviewing separately otained hiistory, ordering medications,tests, procedures, referring, communicating with other health eye care professional, indepentently interpreting results, counseling the patient, care coordination and other
--- NOTE | 2025-02-24 12:13 | W.PC.ACHO ---
Registration Status: ADM NEEMA Primary Language: Preferred Language: [place] ED Information & Data Chief Complaint Nk/Back Pain 02/24/25 11:55 Chief Complaint Nk/Back Pain 02/24/25 07:29 Triage Note abd pain, with irretractable 02/24/25 07:11 back pain. did not pick meds up from pharmacy. was seen here yesterday Medical / Surgical History (Last Reviewed 10/30/21 @ 07:00 by Neftali Martinez MD) Hypothyroid HTN (hypertension) Portal hypertension Esophageal varices Breast cancer (Last Reviewed 10/30/21 @ 07:00 by Neftali Martinez MD) H/O breast surgery Most Recent Vital Signs Temperature 36.6 C 02/24/25 07:11 Pulse 81 02/24/25 11:30 Pulse 82 02/24/25 11:30 Respiratory Rate 27 H 02/24/25 11:30 Blood Pressure 127/79 02/24/25 11:30 Blood Pressure Mean 93 02/24/25 11:30 Pulse Oximetry 97 02/24/25 11:30 Oxygen Delivery Method Nasal Cannula 02/24/25 09:10 Oxygen Flow Rate 4 02/24/25 09:10 Allergies levofloxacin (From Levaquin) Allergy (Intermediate, Unverified 02/24/25 07:15) Other (See Comment) unk Sulfa (Sulfonamide Antibiotics) Allergy (Intermediate, Unverified 02/24/25 07:15) Skin Rash tamoxifen Allergy (Intermediate, Unverified 02/24/25 07:15) Skin Rash blood clot vancomycin Allergy (Intermediate, Unverified 02/24/25 07:15) Unknown doxycycline Allergy (Verified 02/24/25 07:15) Skin Rash linezolid Allergy (Verified 02/24/25 07:15) Hives adhesive tape Adverse Reaction (Verified 02/24/25 07:15) Hives ciprofloxacin Adverse Reaction (Verified 02/24/25 07:15) Skin Rash Precautions Isolation Standard precaution 02/24/25 11:55 IV IV Catheter Type [Right Saline Lock Forearm] IV Catheter Gauge [Right 18 Forearm] Diet Orders Category Date Time Status Heart Healthy Eating [DIET] Nutrition 02/24/25 Lunch Active High Fiber [DIET] Nutrition 02/24/25 Breakfast Active Diagnostics 02/24/25 02/24/25 02/24/25 Range/Units 11:49 10:30 09:16 WBC (4.4-10.8) 10^3/uL RBC (3.93-5.22) 10^6/uL Hgb (11.2-15.7) g/dL Hct (36.0-46.0) % MCV (80-95) fL MCH (27.0-33.0) pg MCHC (32.0-36.0) % RDW (11.7-14.6) % Plt Count (130-400) 10^3/uL MPV (8.0-11.0) fL Reticulocyte % (Auto) (0.5-2.4) % Immature Gran % % Neutrophils % % Band Neutrophils % % Lymphocytes % % Atypical Lymphs % % Monocytes % % Eosinophils % % Basophils % % Metamyelocytes % Nucleated RBC % (0.0-0.3) % Absolute Neutrophils (1.2-6.7) 10^3/uL Absolute Lymphocytes (1.2-3.4) 10^3/uL Absolute Monocytes (0.1-0.8) 10^3/uL Absolute Eosinophils (0.0-0.7) 10^3/uL Absolute Basophils (0.0-0.2) 10^3/uL RBC Morphology PT (9.1-11.1) sec INR (0.9-1.1) Sodium (136-145) mmol/L Potassium (3.5-5.1) mmol/L Chloride (98-107) mmol/L Carbon Dioxide (21.0-32.0) mmol/L Anion Gap (3-11) mmol/L BUN (7-18) mg/dL Creatinine (0.55-1.02) mg/dL Est GFR (CKD-EPI 2020) (mL/min/1.73m2) Glucose (74-106) mg/dL Calcium (8.5-10.1) mg/dL Total Bilirubin (0.2-1.0) mg/dL AST (15-37) U/L ALT (14-59) U/L Alkaline Phosphatase (46-116) U/L Ammonia Pending Lactate Dehydrogenase (81-234) U/L Troponin I Cancelled 13 (<or=51) ng/L NT-Pro-B Natriuret Pep (<300) pg/mL Total Protein (6.4-8.2) g/dL Albumin (3.4-5.0) g/dL Lipase (<78) U/L TSH Hepatitis A IgM Ab Hep Bs Antigen Hep B Core Total Ab Hepatitis C Antibody 02/24/25 Range/Units 08:11 WBC 4.63 (4.4-10.8) 10^3/uL RBC 4.29 (3.93-5.22) 10^6/uL Hgb 13.5 (11.2-15.7) g/dL Hct 38.9 (36.0-46.0) % MCV 91 (80-95) fL MCH 31.5 (27.0-33.0) pg MCHC 34.7 (32.0-36.0) % RDW 13.3 (11.7-14.6) % Plt Count 65 L (130-400) 10^3/uL MPV 11.4 H (8.0-11.0) fL Reticulocyte % (Auto) 1.9 (0.5-2.4) % Immature Gran % 0.0 % Neutrophils % 58.0 % Band Neutrophils % 19 % Lymphocytes % 9.0 % Atypical Lymphs % 2 % Monocytes % 7.0 % Eosinophils % 0.0 % Basophils % 1.0 % Metamyelocytes % 4 Nucleated RBC % 0.0 (0.0-0.3) % Absolute Neutrophils 3.57 (1.2-6.7) 10^3/uL Absolute Lymphocytes 0.51 L (1.2-3.4) 10^3/uL Absolute Monocytes 0.32 (0.1-0.8) 10^3/uL Absolute Eosinophils 0.00 (0.0-0.7) 10^3/uL Absolute Basophils 0.05 (0.0-0.2) 10^3/uL RBC Morphology Normal PT 13.8 H (9.1-11.1) sec INR 1.4 H (0.9-1.1) Sodium 137 (136-145) mmol/L Potassium 3.6 (3.5-5.1) mmol/L Chloride 101 (98-107) mmol/L Carbon Dioxide 24.8 (21.0-32.0) mmol/L Anion Gap 11.2 H (3-11) mmol/L BUN 21 H (7-18) mg/dL Creatinine 1.0 (0.55-1.02) mg/dL Est GFR (CKD-EPI 2020) 67.36 (mL/min/1.73m2) Glucose 106 (74-106) mg/dL Calcium 9.2 (8.5-10.1) mg/dL Total Bilirubin 10.2 H (0.2-1.0) mg/dL AST 110 H (15-37) U/L ALT 50 (14-59) U/L Alkaline Phosphatase 103 (46-116) U/L Ammonia Lactate Dehydrogenase 365 H (81-234) U/L Troponin I 14 (<or=51) ng/L NT-Pro-B Natriuret Pep 2417 H (<300) pg/mL Total Protein 6.2 L (6.4-8.2) g/dL Albumin 2.9 L (3.4-5.0) g/dL Lipase 15 (<78) U/L TSH Pending Hepatitis A IgM Ab Pending Hep Bs Antigen Pending Hep B Core Total Ab Pending Hepatitis C Antibody Pending Intake and Output - 24 Hour Total 02/24/25 07:05 thru 02/24/25 08:13 Intake Total 10 Balance 10 Weight 125.101 kg Intake: IV 10 Falls Risk Assessment History of Falls No History 02/24/25 11:55 Contributing Factors No Factors 02/24/25 11:55 Ambulatory Aids Uses ambulatory device 02/24/25 11:55 Tubes/Lines W/no contributing factors 02/24/25 11:55 Gait Evaluation W/no contributing factors 02/24/25 11:55 Fall Total Score 35 02/24/25 11:55 Level of Risk Moderate Risk 02/24/25 11:55 Problems (Last Reviewed 10/30/21 @ 07:00 by Neftali Martinez MD) Elevated INR (Acute) Hyperbilirubinemia (Acute) Hepatic cirrhosis (Acute) Distended umbilical veins (Acute) Mass of cecum (Acute) Anasarca (Acute) Acute hypoxemic respiratory failure (Acute) v v v v v v v v v Sending and/or Receiving Nurses: Please use comment section below to note any information pertinent to the patient hand-off not included above. Information / Comments: Report received from: c/o back pain, bili BNP and lactate elevated, CXR (-), CT shows galstone and small ascites, pt has lymphedema, Pt on 2-4L O2 to keep SATS above 90% [place], RN
[2025-02-24 12:18] LABS: Ammonia 25 umol/L (11-32)
[2025-02-24 12:23] LABS: TSH (W/Ref FT4) 2.58 uIU/mL (0.36-3.74)
[2025-02-24] MEDS: Acetaminophen 325 MG TAB 650 MG PO (13:35)
[2025-02-24] MEDS: HYDROmorphone 2 MG/ML SYR 1 MG IVP (14:01)
[2025-02-24] MEDS: Prochlorperazine 10 MG/2 ML VIAL IVP (14:10)
--- NOTE | 2025-02-24 17:31 | RESPIRATORY ---
Pt's own ResMed Mode: AutoSet Max pressure: 12 Min pressure: 5 No O2 bleed-in, Nasal mask DME: [employer]
[2025-02-24 19:08] LABS: Hepatitis A Antibody IgM Negative (Negative); Hepatitis C Ab w Rflx HCV PCR Negative (Negative)
[2025-02-24] MEDS: Rifaximin 550 MG TAB PO (20:12)
[2025-02-24] MEDS: Nystatin POWDER 15 GM JAR TP (20:13)
[2025-02-25] VITALS (11 sets, daily range): BP systolic 86–120; BP diastolic 53–79; PULSE 82–94; RESP 16–20; TEMP 35.8–36.3; O2SAT 89–97
[2025-02-25] MEDS: HYDROmorphone 2 MG/ML SYR 0.5 MG IVP ×2 (00:11→08:06)
[2025-02-25] MEDS: Acetaminophen 325 MG TAB 650 MG PO (04:35)
[2025-02-25] MEDS: Levothyroxine 50 MCG TAB PO (06:26)
[2025-02-25 06:54] LABS: Abs Immature Grans 0.08 10^3/uL (0.0-0.06); HCT 37.3 % (36.0-46.0); HGB 13.1 g/dL (11.2-15.7); MCH 32.2 pg (27.0-33.0); MCHC 35.1 % (32.0-36.0); MCV 92 fL (80-95); MPV 10.9 fL (8.0-11.0); RBC 4.07 10^6/uL (3.93-5.22); RDW 13.4 % (11.7-14.6); RDW-SD 44.4 fL; WBC 7.52 10^3/uL (4.4-10.8)
[2025-02-25 07:00] LABS: INR 1.4 (0.9-1.1); Prothrombin Time 13.7 sec (9.1-11.1)
[2025-02-25 07:09] LABS: ALT 34 U/L (14-59); AST 64 U/L (15-37); Albumin 2.4 g/dL (3.4-5.0); Alkaline Phosphatase 81 U/L (46-116); Anion Gap 11.0 mmol/L (3-11); BUN 33 mg/dL (7-18); Bilirubin, Total 10.8 mg/dL (0.2-1.0); CO2 25.0 mmol/L (21.0-32.0); Calcium 8.6 mg/dL (8.5-10.1); Chloride 99 mmol/L (98-107); Estimated GFR 54.13 (mL/min/1.73m2); Glucose 95 mg/dL (74-106); Magnesium 1.7 mg/dL (1.8-2.4); Potassium 3.6 mmol/L (3.5-5.1); Sodium 135 mmol/L (136-145); Total Protein 5.8 g/dL (6.4-8.2)
[2025-02-25 07:30] LABS: Platelet Count 55 10^3/uL (130-400)
[2025-02-25 07:31] LABS: Immature Grans % 0.0 %; RBC Morphology Normal
[2025-02-25] MEDS: Rifaximin 550 MG TAB PO ×2 (08:05→19:46)
[2025-02-25] MEDS: Pantoprazole 40 MG TABCR PO (08:05)
[2025-02-25] MEDS: Folic Acid 1 MG TAB PO (08:05)
[2025-02-25] MEDS: buPROPion-XL 150 MG TABCR 450 MG PO (08:05)
[2025-02-25] MEDS: DULoxetine 20 MG CAP PO (08:05)
[2025-02-25] MEDS: Cholecalciferol (Vitamin D3) 1,000 UNIT TAB 5000 UNITS PO (08:06)
[2025-02-25] MEDS: Normal Saline Flush 10 ML SYR IVP ×6 (08:07→18:06)
[2025-02-25] MEDS: Furosemide 40 MG/4 ML VIAL IVP ×2 (08:07→16:55)
--- NOTE | 2025-02-25 09:30 | DI.US_ITS ---
APPROVED REPORT EXAM: Comprehensive 2D, Doppler, and color-flow Echocardiogram Patient Location: In-Patient Room/Bed: [facility] Wireless Engineer: Sander Husain RDCS (AE) Indications: Elevated BNP, acute hypoxic respiratory failure Other Information Study Quality: Technically Limited. Technically limited study due to body habitus, limited apical windows due to prior surgery. Conclusion Technically limited study Mild concentric left ventricular hypertrophy. Ejection fraction biplane is 60% and overall left ventricular systolic function appears normal. Segmental wall motion cannot be accurately assessed Normal right ventricular size and function Both atria appear normal in size Mildly sclerotic and trileaflet aortic valve. No hemodynamically significant aortic stenosis, no regurgitation Moderate tricuspid regurgitation. Estimated right ventricular systolic pressure is 69 mmHg Wall motion Left Ventricle The left ventricle is normal size. Mild concentric left ventricular hypertrophy. There is no ventricular septal defect visualized. EF is 60% biplane Right Ventricle Right ventricle is grossly normal in size. Right ventricular systolic function could not be assessed. Atria The left atrium size is normal. The right atrium size is normal. The interatrial septum is intact with no evidence for an atrial septal defect. Aortic Valve The aortic valve is mildly sclerotic Aortic valve is trileaflet. There is no aortic valvular stenosis. No aortic regurgitation is present. Mitral Valve The mitral valve is normal in structure. No evidence of mitral valve stenosis. Trace mitral regurgitation. Tricuspid Valve The tricuspid valve is normal in structure. There is no tricuspid valve stenosis. Moderate tricuspid regurgitation. The RVSP is 69.3 mmHg. Pulmonic Valve The pulmonary valve is normal in structure. There is no pulmonic valvular stenosis. There is no pulmonic valvular regurgitation. Great Vessels The aortic root is normal in size. The ascending aorta is normal in size. Aortic arch is not well visualized. IVC is normal in size and collapses >50% with inspiration. Pericardium There is no pericardial effusion. 2D Dimensions IVSD d PLAX 1.28 cm F: 0.6-1.0 Ao Root d 2.79 cm F: 2.7 - 3.3 LVPW d PLAX 1.26 cm F: 0.6 - 1.0 Ao Asc Diam d 3.22 cm F: 2.3 - 3.1 LVID d PLAX 3.76 cm F: 3.8 - 5.2 LVDs 2.58 cm F: 2.2 - 3.5 LV EF Teichholz 59.9 % FS 31.26 % LV EDV (Teich) 60.4 mL LV ESV (Teich) 24.2 mL Stroke Vol Index (Teich) 16.14 M-Mode TAPSE 1.55 cm (M/F) >1.7 LA Volume LA Length A4C 4.9 cm LA Length A2C LA Area A4C s 13.82 cm2 LA Area A2C s LA Vol A4C A-L 32.89 mL LA Vol A2C A-L LA Vol Biplane A-L LA Vol A4C MOD 31.2 mL LA Vol A2C MOD LA Vol BP MOD LV Diastology MV E' medial 0.052 (>0.07 m/s) MV E' lateral 0.099 (>0.1 m/s) Aortic Valve LVOT Diam s 1.75 cm Pulmonary Valve PV Vmax 1.03 (0.5-1.5 m/s) RVOT Vmax 0.73 m/s PV Peak Grad 4.2 mmHg RVOT Peak Gr. 2.1 mmHg PV Mean Torsten 0.67 m/s RVOT VTI 0.134 m PV Mean Grad 2.0 mmHg RVOT Mean Gr. 1.0 mmHg Tricuspid Valve RA Pressure 3.00 mmHg TR Vmax 4.07 m/s TR Peak Grad 66.3 mmHg RVSP (TR) 69.3 mmHg
--- NOTE | 2025-02-25 09:38 | PDOC.CMIN ---
Date of service: 02/25/25 Time of Service: 09:39 Care Management Initial [facility] Initial Assessment Reason for Hospitalization: respiratory failure, Anasarca, mass of cecum Functional Status/Living Situation Patient Presentation: Kelley presented to the ED on 02/23 with c/o atypical chest pain, she was sent home, but scheduled for MRI and EEG on 02/25. She presented to the ED early yesterday morning with c/o right lower quadrant pain. CT of the abdomen showed cirrhosis, splenomegaly, ascites, choelithiasis, fatty tumor in the cecum. There is some talk that Kelley has a gallstone or gallbladder disease, along with her respiratory illness. Kelley was sitting up in bed when CM met with her today. She was very pleasant and easy to talk with. Kelley has had a life full of medical issues, and stated that she feels that her body doesn't really like her. She stated that the pain in her abdomen is a 20/10. She is unable to eat, and is having trouble sleeping, even though she is receiving IV dilaudid. Per Kelley, she was told by surgery that gallbladder surgery would be very tricky due to her liver disease. Kelley lives in a single family home in [place], with her 19yo son, Leroy. She is closely followed by [facility], and has been told that she has hepatic encephalopathy. This is a fairly new diagnosis for her. She has had 2 incidents in the recent months where she has blacked out and forgotten everything. She lost a whole Friday in January. This is very scary to her. 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 Kelley is not able to drive presently, due to her recent black outs. She is supported by her son and friends, is loni to have a coworker who is able to drive her to work. Town of Residence: [place] Resides with: Child (Leroy) Significant Other/Family: Out of area (sister lives in [place], brother in [place], but she keeps good contact with them.) Natural Supports: Kelley stated that her son is an excellent support, she also has an excellent group of friends. Kelley does speak with a therapist on a regular basis. 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 Medications Medication Management: No Issues/Barriers identified Physical Functioning/Mobility Assistive Device: none Advance Directives Advance Directives: Do you have an Advance Directive: N 02/23/25, 08:05 AD On File at [facility]: N 02/23/25, 08:05 Date Asked 02/24/25 02/24/25, 07:14 AD Date Reviewed COLST On File at [facility] COLST Date Scanned Code Status Resuscitation Status Full Code Insurance Coverage/Financial Issues Insurance: Health Plans (NON-[facility] ONLY!) Financial Issues: stated that she lives paycheck to paycheck, but does get by, gets her nails done on a regular basis Care Team Visit Care Team Role Provider Type Mony Vang NP MD [facility] STAFF PHYSICIAN Beth Baptiste Primary Care Provider NURSE PRACTITIONER Marilou Cole MD Other Providers [facility] STAFF PHYSICIAN Fabrizio Diaz MD Emergency Provider [facility] STAFF PHYSICIAN Dominic Ruiz MD Admit Provider [facility] STAFF PHYSICIAN Attending Provider Discharge Potential Discharge Needs: PCP F/U Appt and Other (GI follow up with her specialist at [facility]) Anticipated Barriers to Discharge: Treatment delay (hepatobiliary scan unable to be performed until Wednesday 02/28) Patient/Family Education Needs: Review discharge instructions, discuss Ask Me Three Transportation: Private vehicle Plan: Anticipate that Kelley will discharge home with no new services, but will continue with her close f/u through her GI and PCP. She may need surgical f/u if surgery is indicated for her gallbladder. Kelley will discharge home in a private vehicle with her son. CM will continue to follow. Social Determinants of Health Screening Social Determinants of health last assessed in clinic: 02/25/25 Will the Patient Participate in the Screening?: Yes Do you worry about having a steady place to live?: no Problems where you live: no known problems In the past 12 months, have you had to go without electric, gas, oil or water in your home?: no 1. Within the past 12 months, we worried whether our food would run out before we got money to buy more.: Don't know/refused 2. Within the past 12 months, the food we bought just didn't last and we didn't have money to get more.: Don't know/refused Has lack of transportation kept you from medical appointments or from doing things needed for daily living?: no Has anyone in your life made you feel unsafe or unsupported?: no How hard is it for you to pay for the very basics like food, housing, medical care, and heating? Would you say it is:: Not hard at all Do you want help finding or keeping work or a job?: I do not need or want help If for any reason you need help with day-to-day activities such as bathing, preparing meals, shopping, managing finances, etc., do you get the help you need?: I don?t need any help How often do you feel lonely or isolated from those around you?: Sometimes Do you speak a language other than Hebrew at home?: No Does the patient want assistance with any of the above?: No Health Related Social Needs Health related social needs: feeling lonely/isolated (Z60.8) Health related social needs details: couldn't work for a month PFSH All Active Problems (Updated 02/24/25 @ 19:44 by Abi Evans APRN) Ascites (Acute) Cholelithiasis (Acute) Elevated brain natriuretic peptide (BNP) level (Acute) Abdominal pain (Acute) Elevated INR (Acute) Hyperbilirubinemia (Acute) Hepatic cirrhosis (Acute) Distended umbilical veins (Acute) Mass of cecum (Acute) Anasarca (Acute) Acute hypoxemic respiratory failure (Acute) Atypical chest pain (Acute) Medical History Breast cancer Esophageal varices HTN (hypertension) Hypothyroid Portal hypertension Surgical History H/O breast surgery Social History Smoking/Tobacco Use Status: Former Tobacco Use Smoking risk assessment performed?: Yes Alcohol Intake: former Drug use: Never Substance use type: does not use Housing: house Do you feel safe at home: Yes Do you feel safe in your relationship?: Yes
[2025-02-25] MEDS: Ursodiol 300 MG CAP PO ×2 (10:56→19:46)
[2025-02-25] MEDS: MAGNESIUM SULFATE 1 GM/100 ML BAG IV_INF (10:57)
[2025-02-25] MEDS: PIPERACILLIN/TAZO 3.375 GM in Normal Saline 50 ML IVPB ×3 (12:47→23:55)
--- NOTE | 2025-02-25 12:56 | W.PM.PROGNOT ---
Date of Service Date of service: 02/25/25 Time of Service: 12:56 Assessment and Plan Assessment and plan (1) Acute hypoxemic respiratory failure: Status: Acute Assessment and plan: Not on home oxygen now requires oxygen via oxy mask 6 liters /min goal sat >92% (2) Elevated brain natriuretic peptide (BNP) level: Status: Acute Assessment and plan: BNP and LDH elevation, no previous history of CHF Echo EF 60%, No WMA but cannot be accurately assessed. Moderate tricuspid regurgitation. Continue IV Lasix labs in AM (3) Abdominal pain: Status: Acute Assessment and plan: Patient likely has early cholecystitis superimposed on advanced cirrhosis with portal hypertension and hyperbilirubinemia. Due to high surgical risk, conservative treatment with antibiotics, ursodiol, and dietary modification is preferred. Surgical or interventional procedures only if symptoms persist and diagnosis confirmed. Surgery following PRN hydromporphone PRN compazine for nausea NM hepatobiliary scan on Friday - pt aware and consents. (4) Hyperbilirubinemia: Status: Acute Assessment and plan: Patient likely has early cholecystitis superimposed on advanced cirrhosis with portal hypertension and hyperbilirubinemia. Due to high surgical risk, conservative treatment with antibiotics, ursodiol, and dietary modification is preferred. Surgical or interventional procedures only if symptoms persist and diagnosis confirmed. Surgery following. CMP in AM (5) Hepatic cirrhosis: Status: Acute Assessment and plan: History of metabolic dysfunction associated steatohepatitis ( MASLD) / (FISHER) and now portal vein congestion - might be exacerbated as evidenced by transaminitis Hepatitis profile pending (6) HTN (hypertension): Assessment and plan: Continue home meds (7) Elevated INR: Status: Acute Assessment and plan: INR 1.4 will continue to monitor TEDS for DVT prophylaxis (8) Breast cancer: Assessment and plan: with total BL mastectomy continue home meds (9) Hypothyroid: Assessment and plan: Continue home meds - TSH stable (10) Ascites: Status: Acute Assessment and plan: As per imaging with portal system hypertension Continue IV lasix (11) Cholelithiasis: Status: Acute Assessment and plan: as above (12) Mass of cecum: Status: Acute Assessment and plan: Fatty tumor in cecum at level of ileocecal valve on imaging Outpatient colonoscopy discussed in the ED Surgery consulted inpatient Discussed with Dr. Ruiz Subjective Subjective Patient reports: no new complaints, tolerating liquids well, tolerating a regular diet, voiding w/o difficulty, bowel movement, shortness of breath and afebrile; denies flatus, diarrhea, nausea or vomiting Interval history since last seen: Awake alert, sitting up right in bed. Patient states she continues to have abdominal pain right upper quadrant. Objective Last Vital Signs Temp 36.1 C L 02/25/25 11:07 Pulse 91 H 02/25/25 11:07 Resp 16 02/25/25 11:07 BP 120/78 02/25/25 11:07 Pulse Ox 97 02/25/25 11:07 Laboratory Results - last 24 hr 02/24/25 02/25/25 08:11 06:14 WBC 7.52 RBC 4.07 Hgb 13.1 Hct 37.3 MCV 92 MCH 32.2 MCHC 35.1 RDW 13.4 Plt Count 55 L MPV 10.9 Immature Gran % 0.0 Neutrophils % 66.0 Band Neutrophils % 8 Lymphocytes % 11.0 Atypical Lymphs % 1 Monocytes % 10.0 Eosinophils % 0.0 Basophils % 0.0 Metamyelocytes % 3 Myelocytes % 1 Nucleated RBC % 0.0 Absolute Neutrophils 5.56 Absolute Lymphocytes 0.90 L Absolute Monocytes 0.75 Absolute Eosinophils 0.00 Absolute Basophils 0.00 RBC Morphology Normal PT 13.7 H INR 1.4 H Sodium 135 L Potassium 3.6 Chloride 99 Carbon Dioxide 25.0 Anion Gap 11.0 BUN 33 H Creatinine 1.2 H Est GFR (CKD-EPI 2020) 54.13 Glucose 95 Calcium 8.6 Magnesium 1.7 L Total Bilirubin 10.8 H AST 64 H ALT 34 Alkaline Phosphatase 81 Total Protein 5.8 L Albumin 2.4 L Hepatitis A IgM Ab Negative Hep Bs Antigen Negative Hep B Core Total Ab Negative Hepatitis C Antibody Negative Time Spent with Patient Time Spent with Patient: 25-34 minutes Time was spent: preparing to see the patient(eg.review tests), ordering medications,tests, procedures, referring, communicating with other health regular senior care provider, indepentently interpreting results, counseling the patient and care coordination
[2025-02-25] MEDS: Ketorolac 15 MG/ML VIAL IVP (14:03)
--- NOTE | 2025-02-25 15:12 | W.SURGCON ---
Date of service: 02/25/25 Time of Service: 07:30 Assessment and Plan Assessment and plan (1) Abdominal pain: Status: Acute Assessment and plan: RUQ Abdominal pain in the setting of gallstones, nausea, and worsening symptoms with food intake. Findings are suspicious for cholecystitis though she does not have leukocytosis or classic ultrasound findings of cholecystitis. I believe that this is likely early cholecystitis. A hepatobiliary scan would be diagnostic as it would show whether or not the cystic duct is obstructed. Unfortunately this test cannot be done on Fridays or through the weekend. Given the symptoms she has and the lack of improvement since admission I recommend we empirically treat as if she has cholecystitis. I started Zosyn and ursodiol for her. I do not recommend cholecystectomy for her given the severity of her cirrhosis. If nonoperative management of presumed cholecystitis does not improve her symptoms then she may require transfer to a tertiary center for either a percutaneous drain of the gallbladder (cholecystostomy tube) or a cholecystectomy. I would not transfer her without a PIPIDA scan confirming cholecystitis as these interventions would be morbid for her with her cirrhosis severity. Pain control and antiemetics are armstrong. We should also back her diet up to clear liquids to help discourage the gallbladder from flaring. If her abdominal pain is not due to cholecystitis then this is symptomatic gallstones. I do not recommend cholecystectomy for symptomatic gallstones in a patient with this degree of cirrhosis severity. Ursodiol could be used to help soften the stones and if that fails to resolve her symptoms then she could be considered for cholecystectomy at a tertiary center. Electively. (2) Hepatic cirrhosis: Status: Acute Assessment and plan: Advanced cirrhosis of the liver though the ascites is not severe. This precludes her from being a good candidate for surgery for symptomatic gallstones or even mild acute cholecystitis. (3) Cholelithiasis: Status: Acute (4) Ascites: Status: Acute History of Present Illness History of Present Illness Chief Complaint: gallstones, elevated liver enzymes, pain Narrative: This patient is a 54-year-old female with cirrhosis due to nonalcoholic steatohepatitis. She presented with severe abdominal pain and there is a question of whether or not she has cholecystitis. She has gallstones noted on CT and some progressive mild wall thickening of the gallbladder between ultrasounds done a day apart. I am consulted to help determine if this is cholecystitis, or if the gallbladder changes are due to cirrhosis. The patient states that she was in her usual state of health when she developed right sided chest and midepigastric pain several days ago. She had never experienced pain like that before. After a day, the pain occurred in the right upper quadrant and felt severe. She continues to feel that pain. She came to the emergency department and had a cardiac workup that was negative and so she was sent home. She says that she felt terrible at home and then came by ambulance the next morning to the hospital. Her reason for returning was the same abdominal pain that is new. She says that her pain is in the right upper quadrant and in the middle of the abdomen. It radiates upward to her chest. She has nausea and a very poor appetite. When she drank water this morning it seemed to trigger her pain to feel worse. When she does not eat she still has the pain. She has never felt the symptoms before. She feels very unwell and wants the pain to stop. Nothing specific has been relieving it and nothing specific has been making it worse aside from eating. She has known cirrhosis of the liver that is advanced. She has esophageal varices and portal hypertension signs on CAT scan. She has a gastroenterology team at [facility] that she sees regularly. Her presenting CAT scan showed gallstones. Ultrasound was read as unremarkable with no signs of cholecystitis. The following day an ultrasound was repeated and showed mild thickening of the gallbladder wall and mild dilation of the intrahepatic bile ducts. There is no Andre cholecystic fluid on ultrasound but there was suggestion of Andre cholecystic fluid on CAT scan. The patient's bilirubin was 10 on admission. Her AST is the only liver enzyme elevated. Her INR was 1.4. Her platelet count was 65. PFSH All Active Problems Ascites (Acute) Cholelithiasis (Acute) Elevated brain natriuretic peptide (BNP) level (Acute) Abdominal pain (Acute) Elevated INR (Acute) Hyperbilirubinemia (Acute) Hepatic cirrhosis (Acute) Distended umbilical veins (Acute) Mass of cecum (Acute) Anasarca (Acute) Acute hypoxemic respiratory failure (Acute) Atypical chest pain (Acute) Medical History Hypothyroid HTN (hypertension) Portal hypertension Esophageal varices Breast cancer Surgical History H/O breast surgery Social History Smoking/Tobacco Use Status: Former Tobacco Use Smoking risk assessment performed?: Yes Alcohol Intake: former Drug use: Never Substance use type: does not use Housing: house Do you feel safe at home: Yes Do you feel safe in your relationship?: Yes Exam Narrative Exam Narrative: awake, NAD eomi, MMM. icteric sclera midline trachea, neck is symmetric PULM: normal resp effort, equal chest rise with respiration, no wheezing audible CARDIAC: regular rate, normal perfusion abdomen is soft, RUQ TTP without murpheys sign. Epigastrium nontender on my exam. no peritonitis extremities are without deformity, normal movement of all four extremities speech is clear and coherent mood and affect are congruent, no focal neurological deficits skin without rash Results Last Vital Signs Temp 96.4 F L 02/25/25 14:51 Pulse 88 02/25/25 14:51 Resp 16 02/25/25 14:51 BP 105/66 02/25/25 14:51 Pulse Ox 96 02/25/25 14:51 Labs 02/25/25 06:14 02/25/25 06:14 Labs: Laboratory Results - last 24 hr 02/24/25 02/25/25 08:11 06:14 WBC 7.52 RBC 4.07 Hgb 13.1 Hct 37.3 MCV 92 MCH 32.2 MCHC 35.1 RDW 13.4 Plt Count 55 L MPV 10.9 Immature Gran % 0.0 Neutrophils % 66.0 Band Neutrophils % 8 Lymphocytes % 11.0 Atypical Lymphs % 1 Monocytes % 10.0 Eosinophils % 0.0 Basophils % 0.0 Metamyelocytes % 3 Myelocytes % 1 Nucleated RBC % 0.0 Absolute Neutrophils 5.56 Absolute Lymphocytes 0.90 L Absolute Monocytes 0.75 Absolute Eosinophils 0.00 Absolute Basophils 0.00 RBC Morphology Normal PT 13.7 H INR 1.4 H Sodium 135 L Potassium 3.6 Chloride 99 Carbon Dioxide 25.0 Anion Gap 11.0 BUN 33 H Creatinine 1.2 H Est GFR (CKD-EPI 2020) 54.13 Glucose 95 Calcium 8.6 Magnesium 1.7 L Total Bilirubin 10.8 H AST 64 H ALT 34 Alkaline Phosphatase 81 Total Protein 5.8 L Albumin 2.4 L Hepatitis A IgM Ab Negative Hep Bs Antigen Negative Hep B Core Total Ab Negative Hepatitis C Antibody Negative Imaging Abdomen CT scan report/results: report reviewed and image reviewed Abdominal ultrasound report/results: report reviewed and image reviewed
--- NOTE | 2025-02-25 15:13 | IN_ITS ---
PT Notes Visit Reasons: Acute hypoxic respiratory failure Physical Therapy Inpatient Initial Evaluation Date: 02/26/2025 Referring Doctor: Mony Vang NP PT Orders: PT CONSULT: Eval/Treat Precautions: Fall. Standard. Activity as tolerated. Patient Profile/Admitting Diagnosis: Patient is a 54-year-old female who presented to the ED on 02/24/2025 with chief complaints of atypical chest pain, R UQ abd pain, and low back pain. Patient was admitted to acute level of care for management of acute hypoxemic respiratory failure, elevated BNP, hyperbilirubinemia, hepatic cirrhosis, ascites, and cholelithiasis. PMHX: All Active Problems (Updated 02/24/25 @ 19:44 by Abi Evans APRN) Ascites (Acute) Cholelithiasis (Acute) Elevated brain natriuretic peptide (BNP) level (Acute) Abdominal pain (Acute) Elevated INR (Acute) Hyperbilirubinemia (Acute) Hepatic cirrhosis (Acute) Distended umbilical veins (Acute) Mass of cecum (Acute) Anasarca (Acute) Acute hypoxemic respiratory failure (Acute) Atypical chest pain (Acute) Medical History Breast cancer Esophageal varices HTN (hypertension) Hypothyroid Portal hypertension Surgical History H/O breast surgery Social History/Home Situation: Independent with no assisitive device indoors, has brought a front-wheeled walker with her for outdoors. 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 Son has recently moved in and has been a great support. No longer drives. Has supportive friends. Equipment Owned/DME: FWW, CPAP machine Subjective: Still reports mild abdominal pain in her R upper abdominal area with short distance walking. Nurse Catherine aware and has been managing patient's symptom. Denied headache, chest pain, and lightheadedness throughout session. Objective: General Observation: B sclerae yellowish. IV through R UE, B LE lipolymphedema, L UE BCRL. High BMI. On O2 supp at 2L/min via NC. Mental Status: Alert and oriented as to person, place, time, and purpose. Able to pay attention, focus, and respond appropriately. Pain: mild to moderate pain in R UQ with ambulation Vital Signs: Desaturated to 88% on RA after short ambulation ROM: Right Upper Extremity: Shoulder Flexion WFL. Shoulder abduction WFL. Elbow flexion WFL. Wrist flexion WFL. Functional opening and closing of hand WFL. Left Upper Extremity: Shoulder Flexion allowed up to 100 degrees. Shoulder abduction allowed up to 90 degrees. Elbow flexion WFL. Wrist flexion WFL. Functional opening and closing of hand WFL. Right Lower Extremity: Hip flexion allowed up to 100 degrees. Hip abduction 10 degrees. Knee flexion 30 degrees to 90 degrees. Ankle dorsiflexion to neutral only. Ankle plantarflexion WFL. Left Lower Extremity: Hip flexion allowed up to 100 degrees. Hip abduction 10 degrees. Knee flexion 30 degrees to 90 degrees. Ankle dorsiflexion to neutral only. Ankle plantarflexion WFL. Strength: Right Upper Extremity: Shoulder flexors 4-/5. Shoulder abductors 4-/5. Elbow flexors 4-/5. Elbow extensors 4-/5. Pastrycook'S Assistant strong. Left Upper Extremity: Shoulder flexors 3-/5. Shoulder abductors 3-/5. Elbow flexors 4-/5. Elbow extensors 4-/5. Pastrycook'S Assistant strong. Right Lower Extremity: Hip flexors 3-/5. Hip abductors 3-/5. Knee flexors 3-/5. Knee extensors 3-/5. Ankle dorsiflexors 3-/5. Ankle plantarflexors 4-/5. Left Lower Extremity: Hip flexors 3-/5. Hip abductors 3-/5. Knee flexors 3-/5. Knee extensors 3-/5. Ankle dorsiflexors 3-/5. Ankle plantarflexors 4-/5. Bed Mobility/Transfers: Minimal cueing provided for use of B hands as needed for support, movement sequence, AD management, and posture to reduce fall risk and minimize pain report Supine to sit contact guard assist, HOB at 30 degrees Sit to supine minimal assist to B LE given one at a time Sit to stand contact guard assist with definite use of B UE for support Stand to sit contact guard assist with definite use of B UE for support Gait: Covered a distance of 20 feet + 20 feet using front-wheeled walker with contact guard assist with report of increased R UQ pain but no LOB. Mild SOB with desaturation to 88% on room air after walking to and from the bathroom to void urine. Patient was placed back on 2 L of O2 to address symptom. Fatigued after short walk. Stairs: Not tested Balance: Static Sitting: Normal Dynamic Sitting: Normal Static Standing: Fair Dynamic Standing: Fair Special Tests: Mobility Limitations Standardized Measure [facility] AM-PAC 6 clicks Basic Mobility Inpatient Short Form: Raw Score: 19 CMS Score: 42% deficit Informed Consent/Education: Patient was instructed in purpose of PT consult and plan of care. Agreeable to proceed with established PT POC to achieve personal goals. Assessment: Patient presented with limited ability to perform safe ambulation due to R UQ pain symptom and generalized weakness. 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 She will require services to facilitate return to PLOF and coordinate needed services at home to achieve functional goals. Patient presents with clinical signs and symptoms consistent with current/admitting diagnoses that have resulted to mobility limitations, gait instability, generalized weakness, and overall ADL decline as demonstrated by the following impairment level findings: 1. Decreased strength to B UE/LE major muscle groups 2. Impaired sitting/standing balance 3. Impaired activity tolerance 4. Limitation of joint range of motion in B LE and L UE 5. Shortness of breath 6. B LE lipolymphedema and L UE lymphedema Impairments are contributing to the following functional limitations: 1. Decline in bed mobility skills 2. Decline in transfer skills 3. Difficulty with ambulation without assistive device and physical assistance 4. Increased completion time for mobility ADL performance 5. Increased risk for falls 6. Difficulty with managing steps alone safely Patient is assessed as a 86337 moderate complexity based on the following: History: 54-year-old female with past medical history as indicated above Examination: Demonstrable impairment in strength, balance, and mobility level with underlying impairments and functional limitations as exhibited above as well as deficit score of 42% utilizing the [facility] Mobility Inpatient Short Form Presentation: Evolving Decision Makin moderate complexity Goals: Goals X1 week 1. Supine-Sit independent 2. Sit-Supine independent 3. Sit-Stand independent 4. Stand-Sit independent with FWW 5. Bed-Chair independent with FWW 6. Chair-Bed independent with FWW 7. Independent gait on level surface with use of FWW for at least 150 feet without report of pain nor dyspnea 8. Independent stair negotiation while holding onto 1 rail for at least 3 steps without report of pain nor dyspnea 9. Independent with home exercise program 10. Good static and dynamic standing balance/tolerance Plan of Care/Treatment Plan: 1-2x/day, 7 days/week x 1 week. Plan of care has been reviewed with the REALTIME REPORTER providing the service under Physical Therapy direction. Initiate Physical Therapy intervention for pain management as needed, strengthening, bed mobility, transfers, gait, stairs, balance training, and use of assistive device. DISCHARGE RECOMMENDATIONS: HH PT to ensure a smooth transition to home. OP PT to manage lymphedema symptoms with referral from PCP.hopsitalist once HH goals are achieved. TREATMENT CODE/TIME: 76146 x 20 minutes for 1 unit, 31872 x 26 minutes for 2 units (15:15-15:59). Thank you for the opportunity to participate in the care of this patient. Mary Peralta PT, DPT, CLT [facility] [place], [place]
--- NOTE | 2025-02-25 18:30 | RT.EKG_ITS ---
APPROVED REPORT Exam: Resting ECG Reason for Exam: query ST abnormality Patient Location: I HR:85 bpm ECG Measurements Heart Rate 85 AXIS UT 165 P 25 QRSd 178 QRS -16 QT 435 T 108 QTc 518 Conclusion Sinus rhythm...normal P axis, V-rate 50- 99 Left bundle branch block...QRSd>120, broad/notched R
[2025-02-25] MEDS: Nystatin POWDER 15 GM JAR TP (19:46)
[2025-02-25] MEDS: Lactulose 20 GM/30 ML CUP PO (19:47)
[2025-02-26 03:25] VITALS: BP 101/61; PULSE 89; RESP 20; TEMP 36.3; O2SAT 94
[2025-02-26] MEDS: PIPERACILLIN/TAZO 3.375 GM in Normal Saline 50 ML IVPB ×3 (05:59→18:23)
[2025-02-26] MEDS: Levothyroxine 50 MCG TAB PO (05:59)
[2025-02-26] MEDS: Normal Saline Flush 10 ML SYR IVP ×3 (06:02→19:53)
[2025-02-26] MEDS: Acetaminophen 325 MG TAB 650 MG PO ×2 (06:08→23:27)
[2025-02-26 07:37] LABS: Abs Immature Grans 0.46 10^3/uL (0.0-0.06); HCT 32.6 % (36.0-46.0); HGB 11.4 g/dL (11.2-15.7); MCH 31.2 pg (27.0-33.0); MCHC 35.0 % (32.0-36.0); MCV 89 fL (80-95); MPV 12.4 fL (8.0-11.0); RBC 3.65 10^6/uL (3.93-5.22); RDW 12.9 % (11.7-14.6); RDW-SD 41.7 fL; WBC 8.26 10^3/uL (4.4-10.8)
[2025-02-26] MEDS: Furosemide 40 MG/4 ML VIAL IVP (07:42)
[2025-02-26] MEDS: Lactulose 20 GM/30 ML CUP PO ×2 (07:42→19:53)
[2025-02-26] MEDS: Cholecalciferol (Vitamin D3) 1,000 UNIT TAB 5000 UNITS PO (07:42)
[2025-02-26] MEDS: DULoxetine 20 MG CAP PO (07:42)
[2025-02-26] MEDS: buPROPion-XL 150 MG TABCR 450 MG PO (07:42)
[2025-02-26] MEDS: Rifaximin 550 MG TAB PO ×2 (07:42→19:53)
[2025-02-26] MEDS: Ursodiol 300 MG CAP PO ×2 (07:43→19:53)
[2025-02-26] MEDS: Pantoprazole 40 MG TABCR PO (07:43)
[2025-02-26] MEDS: Folic Acid 1 MG TAB PO (07:43)
[2025-02-26] MEDS: Nystatin POWDER 15 GM JAR TP ×2 (07:44→19:55)
[2025-02-26 07:51] LABS: Anion Gap 10.7 mmol/L (3-11); BUN 47 mg/dL (7-18); CO2 24.3 mmol/L (21.0-32.0); Calcium 8.9 mg/dL (8.5-10.1); Chloride 98 mmol/L (98-107); Estimated GFR 33.27 (mL/min/1.73m2); Glucose 84 mg/dL (74-106); Magnesium 1.9 mg/dL (1.8-2.4); Potassium 3.7 mmol/L (3.5-5.1); Sodium 133 mmol/L (136-145)
[2025-02-26 08:00] VITALS: BP 97/60; PULSE 92; RESP 16; TEMP 36.1; O2SAT 92
[2025-02-26 08:34] LABS: Platelet Count 42 10^3/uL (130-400)
[2025-02-26 08:35] LABS: Hypochromasia 1+; Polychromasia Present
--- NOTE | 2025-02-26 09:46 | PT.INTREAT ---
PT Notes Visit Reasons: Acute hypoxic respiratory failure Inpatient Physical Therapy Treatment Note [facility] Date:02/26/2025 Referring Doctor: Mony Vang NP PT Orders: PT CONSULT: Eval/Treat Precautions: Fall. Standard. Activity as tolerated. Patient Profile/Admitting Diagnosis: Patient is a 54-year-old female who presented to the ED on 02/24/2025 with chief complaints of atypical chest pain, R UQ abd pain, and low back pain. Patient was admitted to acute level of care for management of acute hypoxemic respiratory failure, elevated BNP, hyperbilirubinemia, hepatic cirrhosis, ascites, and cholelithiasis. SUBJECTIVE: []I need Daltoid before doing PT After discussing exercises, deep breathing altered nursing staff to medication needs and they issued her meds with PT to return in 30 min. On return 30 min later. Kelley states I am feeling a little light headed but after discussion she felt comfortable to work with PT OBJECTIVE: On 2 l n/c for balance and chair exercises and for ambulation on RA. O2 sats 2 l n/c ? ?at start of PT on n/c O2 94 and with standing at chair balance exercises still on O2 decreased to 93, on RA after exercise decreased to 88%. Pt reports feeling tired 1/[address] thru ambulation. ? PAIN: On initial presentation reports right flank pain thus dose of dilotid before full PT session VITALS: ? Pre-Treatment: O2 sat 94 O2 on 2l n/c ? Post-Treatment: 88 O2 sat on RA Therapeutic Activities (69758s[3]): Direct one-on-one instruction in dynamic activities to improve functional performance. ?Pre During and post session 5x box PLB BED MOBILITY/TRANSFERS? Rolling L/R: NT Supine-sit:NT? Sit-supine: NT? Sit-stand: with v/c independent to RW? Stand-sit: from RW to chair and adjust in chair with v/c for hand placement indep? Bed-Chair:NT ? Chair-bed: NT on IE patient supine to sit with HOB at 30 with min A. Ambulation: Provided skilled cues and instruction on performance and technique throughout. Direct one-on-one instruction and skilled instruction in ambulation employing an assistive device FWRW , patient reports at baseline does not use RW all of the time movement sequencing of increased step height and length, turning and movement with proper form clock stepping for turning as we moved about the room in tight space such that patient can work with nursing staff to utilize regular toilet. Provided verbal cues for equipment management and technique Provided instruction in gait pattern Patient education regarding pacing and breathing techniques to maximize activity tolerance? GAIT? Assistive Device:FWRW ? Weight bearing: full Assist: SBA? Distance:?15 ' maneuvering about the room in tight space ? Deviation: rocks side to side, relys on RW for balance ? STAIRS:NT however patient has ~2 sets of 5-6 steps to get into home with rail, bedroom is upstairs as well as more saftey shower setting.? ?Normally patient goes up stairs 1 at a time ? Balance Activity/Pre gait activity:All with close guard Sit to stand x2 from chair using both UE(next visit try to do more reps in a row) Standing at RW with light hand hold marching in place x 10 steps Standing at RW w/o hand hold EO x30 sec hands hovering, EC with slight sway x15 sec, marching w/o handhold 5xea leg but starts with holding on and able to transition, standing punch arms forward 10x Seated leg extension 10x ? Therapeutic Exercises ([id number][]): Direct one-on-one instruction in therapeutic exercises to develop strength, endurance, range of motion and flexibility. ? Provided skilled instruction in proper exercise performance Provided skilled manual cues to facilitate proper muscle recruitment and/or form: [] Neuromuscular Re-education ([id number][]): Activities that facilitate re-education of movement balance, posture, coordination, and proprioception or kinesthetic sense, requiring skilled tactile and verbal cues ? Exercises/techniques: ? [] ASSESSMENT:? Pt desats with ambulation activity on RA. Would like to advance walking and exercise as well as assess stairs when able thus may give trial to ambulation with O2 next visit and bring to PT clinic for advancement of exercises with and w/o O2. Nursing staff is aware of need to increase mobility and would like her and it is recommend to ambulate to toilet. Nursing staff is also aware of desat on RA with activity, they are also quite encouraging to her mobility. She does well with sit to stand transfers thus will encourage more up/downs. She is interested in lymphedema treatment upon d/c. Will need to assess stairs before d/c home. PLAN: []Plan of Care/Treatment Plan: 1-2x/day, 7 days/week x 1 week. Plan of care has been reviewed with the ELECTROCARDIOGRAPH OPERATOR providing the service under Physical Therapy direction. Initiate Physical Therapy intervention for pain management as needed, strengthening, bed mobility, transfers, gait, stairs, balance training, and use of assistive device. DISCHARGE RECOMMENDATIONS: HH PT to ensure a smooth transition to home. OP PT to manage lymphedema symptoms with referral from PCP.hopsitalist once HH goals are achieved. TREATMENT CODE/TIME:[id number] 11:35-11:50 15' 12:30-1:00 30'
--- NOTE | 2025-02-26 11:42 | SCONE_ITS ---
Date of service: 02/26/25 Time of Service: 11:42 Assessment and Plan Assessment and plan (1) Abdominal pain: Status: Acute Assessment and plan: RUQ Abdominal pain in the setting of gallstones, nausea, and worsening symptoms with food intake. Suspicious for acute cholecystitis though the classic imaging changes such as pericholecystic fluid are not present. 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 A hepatobiliary scan would be diagnostic but is not available until Friday. Started on zosyn and ursodiol, no improvement yet. Will restrict her oral intake as the little bit she has been able to tolerate has been dairy and protein which will both exacerbate her issue. continue the meds. She is not a candidate for cholecystectomy here given the severity of her cirrhosis, and I feel a tertiary center may opt for nonop management and cholecystostomy tube if she did not improve on abx. If nonoperative management of presumed cholecystitis does not improve her symptoms by friday then she may require transfer to a tertiary center for further management, either a percutaneous drain of the gallbladder (cholecystostomy tube) or a cholecystectomy. (2) Cholelithiasis: Status: Acute Assessment and plan: as above (3) Hepatic cirrhosis: Status: Acute Assessment and plan: acute decompensation with decreasing platelets and increasing enzymes. May be in response to cholecystitis. If she worsens again tomorrow with rising creatinine (despite fluids given to her today) then she may benefit from transfer for hepatology management. History of Present Illness Narrative: continues to have RUQ pain, not any better since yesterday. appetite is poor and she has nausea and pain with any po intake. She was able to eat some custard and had some of a chocolate protein shake. PFSH All Active Problems Ascites (Acute) Cholelithiasis (Acute) Elevated brain natriuretic peptide (BNP) level (Acute) Abdominal pain (Acute) Elevated INR (Acute) Hyperbilirubinemia (Acute) Hepatic cirrhosis (Acute) Distended umbilical veins (Acute) Mass of cecum (Acute) Anasarca (Acute) Acute hypoxemic respiratory failure (Acute) Atypical chest pain (Acute) Medical History Hypothyroid HTN (hypertension) Portal hypertension Esophageal varices Breast cancer Surgical History H/O breast surgery Social History Smoking/Tobacco Use Status: Former Tobacco Use Smoking risk assessment performed?: Yes Alcohol Intake: former Drug use: Never Substance use type: does not use Housing: house Do you feel safe at home: Yes Do you feel safe in your relationship?: Yes Exam Narrative Exam Narrative: awake, NAD upright in recliner chair. normal resp effort RUQ ttp without a traditional murpheys sign periph edema 2+ Results Last Vital Signs Temp 97.0 F L 02/26/25 08:00 Pulse 92 H 02/26/25 08:00 Resp 16 02/26/25 08:00 BP 97/60 L 02/26/25 08:00 Pulse Ox 92 02/26/25 08:00 Labs 02/26/25 06:50 02/26/25 06:50 Labs: Laboratory Results - last 24 hr 02/26/25 06:50 WBC 8.26 RBC 3.65 L Hgb 11.4 Hct 32.6 L MCV 89 MCH 31.2 MCHC 35.0 RDW 12.9 Plt Count 42 L MPV 12.4 H Immature Gran % See Differential Neutrophils % 61.0 Band Neutrophils % 5 Lymphocytes % 8.0 Monocytes % 19.0 Eosinophils % 2.0 Basophils % 1.0 Metamyelocytes % 2 Myelocytes % 2 Nucleated RBC % 0.0 Absolute Neutrophils 5.45 Absolute Lymphocytes 0.66 L Absolute Monocytes 1.57 H Absolute Eosinophils 0.17 Absolute Basophils 0.08 RBC Morphology See Below Polychromasia Present Hypochromasia 1+ Sodium 133 L Potassium 3.7 Chloride 98 Carbon Dioxide 24.3 Anion Gap 10.7 BUN 47 H Creatinine 1.8 H Est GFR (CKD-EPI 2020) 33.27 Glucose 84 Calcium 8.9 Magnesium 1.9
[2025-02-26] MEDS: HYDROmorphone 2 MG/ML SYR 0.5 MG IVP (11:57)
[2025-02-26] MEDS: Prochlorperazine 10 MG/2 ML VIAL 5 MG IVP (12:03)
[2025-02-26] MEDS: Normal Saline 1,000 ML 50 ML IV (12:50)
--- NOTE | 2025-02-26 13:07 | W.PM.PROGNOT ---
Date of Service Date of service: 02/26/25 Time of Service: 13:07 Assessment and Plan Assessment and plan (1) Acute hypoxemic respiratory failure: Status: Acute Assessment and plan: Not on home oxygen now requires oxygen via oxy mask 6 liters /min goal sat >92% respiratory following I/S and pulmonary toileting (2) Elevated brain natriuretic peptide (BNP) level: Status: Acute Assessment and plan: BNP and LDH elevation, no previous history of CHF Echo EF 60%, No WMA but cannot be accurately assessed. Moderate tricuspid regurgitation. Stop diuresis, start gentle IV fluids, creatinine rising, appears dehydrated labs in AM (3) Abdominal pain: Status: Acute Assessment and plan: Patient likely has early cholecystitis superimposed on advanced cirrhosis with portal hypertension and hyperbilirubinemia. Due to high surgical risk, conservative treatment with antibiotics, ursodiol, and dietary modification is preferred. Surgical or interventional procedures only if symptoms persist and diagnosis confirmed. Surgery following PRN hydromporphone PRN compazine for nausea NM hepatobiliary scan on Friday - pt aware and consents. (4) Hyperbilirubinemia: Status: Acute Assessment and plan: Patient likely has early cholecystitis superimposed on advanced cirrhosis with portal hypertension and hyperbilirubinemia. Due to high surgical risk, conservative treatment with antibiotics, ursodiol, and dietary modification is preferred. Surgical or interventional procedures only if symptoms persist and diagnosis confirmed. Surgery following. CMP in AM (5) Hepatic cirrhosis: Status: Acute Assessment and plan: History of metabolic dysfunction associated steatohepatitis ( MASLD) / (FISHER) and now portal vein congestion - might be exacerbated as evidenced by transaminitis Hepatitis profile pending (6) HTN (hypertension): Assessment and plan: Continue home meds (7) Elevated INR: Status: Acute Assessment and plan: INR 1.4 will continue to monitor TEDS for DVT prophylaxis (8) Breast cancer: Assessment and plan: with total BL mastectomy continue home meds (9) Hypothyroid: Assessment and plan: Continue home meds - TSH stable (10) Ascites: Status: Acute Assessment and plan: As per imaging with portal system hypertension Continue IV lasix (11) Cholelithiasis: Status: Acute Assessment and plan: as above (12) Mass of cecum: Status: Acute Assessment and plan: Fatty tumor in cecum at level of ileocecal valve on imaging Outpatient colonoscopy discussed in the ED Surgery consulted inpatient Discussed with Dr. Ruiz Subjective Subjective Patient reports: no new complaints, tolerating liquids well and afebrile; denies vomiting or shortness of breath Exam Const General: cooperative, comfortable and no acute distress Nutritional Appearance: overweight Orientation: alert, awake and oriented x3 HENMT Head: normal to inspection, normocephalic and atraumatic Face and sinus: normal facial exam Mouth: oral mucosae normal Eyes Alignment and Position: alignment normal Sclera: scleral abnormality bilaterally (icteric) EOM: EOM intact bilaterally Neck Neck: normal visual inspection and full ROM Chest Chest: normal inspection of the chest Resp Effort & Inspection: normal respiratory effort and able to speak in complete sentences Auscultation: clear to auscultation bilaterally Cardio Rate: regular rate Rhythm: regular rhythm GI Inspection: normal to inspection, distended and obesity Palpation: soft and tender Skin General skin exam: jaundice Objective Last Vital Signs Temp 36.1 C L 02/26/25 08:00 Pulse 92 H 02/26/25 08:00 Resp 16 02/26/25 08:00 BP 97/60 L 02/26/25 08:00 Pulse Ox 92 02/26/25 08:00 Laboratory Results - last 24 hr 02/26/25 06:50 WBC 8.26 RBC 3.65 L Hgb 11.4 Hct 32.6 L MCV 89 MCH 31.2 MCHC 35.0 RDW 12.9 Plt Count 42 L MPV 12.4 H Immature Gran % See Differential Neutrophils % 61.0 Band Neutrophils % 5 Lymphocytes % 8.0 Monocytes % 19.0 Eosinophils % 2.0 Basophils % 1.0 Metamyelocytes % 2 Myelocytes % 2 Nucleated RBC % 0.0 Absolute Neutrophils 5.45 Absolute Lymphocytes 0.66 L Absolute Monocytes 1.57 H Absolute Eosinophils 0.17 Absolute Basophils 0.08 RBC Morphology See Below Polychromasia Present Hypochromasia 1+ Sodium 133 L Potassium 3.7 Chloride 98 Carbon Dioxide 24.3 Anion Gap 10.7 BUN 47 H Creatinine 1.8 H Est GFR (CKD-EPI 2020) 33.27 Glucose 84 Calcium 8.9 Magnesium 1.9 Time Spent with Patient Time Spent with Patient: 35-49 minutes Time was spent: preparing to see the patient(eg.review tests), obtaining and/or reviewing separately otained hiistory, ordering medications,tests, procedures, referring, communicating with other health residential care officer, indepentently interpreting results and counseling the patient
[2025-02-26 16:15] VITALS: BP 104/77; PULSE 71; RESP 24; TEMP 36.7; O2SAT 96
[2025-02-26 19:07] VITALS: BP 110/81; PULSE 78; RESP 25; TEMP 36.5; O2SAT 91
[2025-02-26 20:16] VITALS: O2SAT 96
[2025-02-26 23:14] VITALS: BP 128/78; PULSE 80; RESP 18; TEMP 36.3; O2SAT 98
[2025-02-27] VITALS (7 sets, daily range): BP systolic 111–128; BP diastolic 66–84; PULSE 82–94; RESP 16–24; TEMP 36.3–37.2; O2SAT 92–96
[2025-02-27] MEDS: PIPERACILLIN/TAZO 3.375 GM in Normal Saline 50 ML IVPB ×3 (00:23→17:50)
[2025-02-27 07:04] LABS: Abs Immature Grans 1.43 10^3/uL (0.0-0.06); HCT 32.4 % (36.0-46.0); HGB 11.5 g/dL (11.2-15.7); MCH 31.3 pg (27.0-33.0); MCHC 35.5 % (32.0-36.0); MCV 88 fL (80-95); MPV 12.7 fL (8.0-11.0); RBC 3.68 10^6/uL (3.93-5.22); RDW 13.1 % (11.7-14.6); RDW-SD 41.9 fL; WBC 13.75 10^3/uL (4.4-10.8)
[2025-02-27 07:16] LABS: ALT 21 U/L (14-59); AST 39 U/L (15-37); Albumin 2.1 g/dL (3.4-5.0); Alkaline Phosphatase 95 U/L (46-116); Anion Gap 11.5 mmol/L (3-11); BUN 48 mg/dL (7-18); Bilirubin, Total 9.9 mg/dL (0.2-1.0); CO2 24.5 mmol/L (21.0-32.0); Calcium 8.7 mg/dL (8.5-10.1); Chloride 97 mmol/L (98-107); Estimated GFR 35.64 (mL/min/1.73m2); Glucose 78 mg/dL (74-106); Potassium 3.3 mmol/L (3.5-5.1); Sodium 133 mmol/L (136-145); Total Protein 5.5 g/dL (6.4-8.2)
[2025-02-27 07:32] LABS: Platelet Count 48 10^3/uL (130-400)
[2025-02-27 07:33] LABS: Polychromasia Present
[2025-02-27] MEDS: Lactulose 20 GM/30 ML CUP PO ×2 (09:19→20:00)
[2025-02-27] MEDS: DULoxetine 20 MG CAP PO (09:20)
[2025-02-27] MEDS: buPROPion-XL 150 MG TABCR 450 MG PO (09:20)
[2025-02-27] MEDS: Rifaximin 550 MG TAB PO ×2 (09:20→20:00)
[2025-02-27] MEDS: Ursodiol 300 MG CAP PO ×2 (09:20→20:00)
[2025-02-27] MEDS: Pantoprazole 40 MG TABCR PO (09:21)
[2025-02-27] MEDS: Folic Acid 1 MG TAB PO (09:21)
[2025-02-27] MEDS: Cholecalciferol (Vitamin D3) 1,000 UNIT TAB 5000 UNITS PO (09:22)
--- NOTE | 2025-02-27 11:09 | PGE_ITS ---
Date of Service Date of service: 02/27/25 Time of Service: 11:09 Assessment and Plan Assessment and plan (1) Abdominal pain: Status: Acute Assessment and plan: Patient likely has early cholecystitis superimposed on advanced cirrhosis with portal hypertension and hyperbilirubinemia. Due to high surgical risk, conservative treatment with antibiotics, ursodiol, and dietary modification is preferred. Surgical or interventional procedures only if symptoms persist and diagnosis confirmed. Surgery following PRN hydromporphone PRN compazine for nausea NM hepatobiliary scan on Friday - pt aware and consents. (2) Hyperbilirubinemia: Status: Acute Assessment and plan: Patient likely has early cholecystitis superimposed on advanced cirrhosis with portal hypertension and hyperbilirubinemia. Due to high surgical risk, conservative treatment with antibiotics, ursodiol, and dietary modification is preferred. Surgical or interventional procedures only if symptoms persist and diagnosis confirmed. Surgery following. CMP in AM LFT's stable today (3) Cholelithiasis: Status: Acute Assessment and plan: as above (4) Hepatic cirrhosis: Status: Acute Assessment and plan: History of metabolic dysfunction associated steatohepatitis ( MASLD) / (FISHER) and now portal vein congestion - might be exacerbated as evidenced by transaminitis Hepatitis profile negative (5) Acute hypoxemic respiratory failure: Status: Acute Assessment and plan: Not on home oxygen now requires oxygen via oxy mask 6 liters /min goal sat >92% respiratory following I/S and pulmonary toileting (6) Elevated brain natriuretic peptide (BNP) level: Status: Acute Assessment and plan: no previous history of CHF Echo EF 60%, No WMA but cannot be accurately assessed. Moderate tricuspid regurgitation. was diuresed diuresis discontinued yesterday. continue gentle IV fluids, creatinine improved today continue to closely follow labs (7) Hypokalemia: Status: Acute Assessment and plan: in setting of limited po intake and diuresis replete and follow mag level 1.9 did not tolerate IV potassium replacement change to PO liquid MIDLINE consult placed. (8) HTN (hypertension): Assessment and plan: Continue home meds (9) Elevated INR: Status: Acute Assessment and plan: was stabel at INR 1.4 recheck in am TEDS for DVT prophylaxis (10) Breast cancer: Assessment and plan: with total BL mastectomy continue home meds (11) Hypothyroid: Assessment and plan: Continue home meds - TSH stable (12) Ascites: Status: Acute Assessment and plan: As per imaging with portal system hypertension no evidence of SBP no paracentesis indicated at this time (13) Mass of cecum: Status: Acute Assessment and plan: Fatty tumor in cecum at level of ileocecal valve on imaging Outpatient colonoscopy discussed in the ED Surgery consulted inpatient discussed with DR Ruiz. Subjective Subjective Patient reports: still having pain, nausea, shortness of breath (Still with oxygen requirements) and afebrile Interval history since last seen: Patient not feeling well today with multiple complaints including increased abdominal pain when taking p.o., fatigue, malaise, IV site burning. Generally not feeling well Exam Narrative Exam Narrative: Acutely and chronically ill-appearing female older than stated age, appears fatigued, eyes icteric EOMs intact skin is jaundice neurologic she is awake alert oriented no focal deficits psychiatric blunted mood and affect cardiovascular regular rate and rhythm respirations even and unlabored abdomen obese tender extremities with massive lymphedema. Objective Last Vital Signs Temp 36.3 C L 02/27/25 08:21 Pulse 89 02/27/25 08:21 Resp 18 02/27/25 08:21 BP 120/79 02/27/25 08:37 Pulse Ox 96 02/27/25 08:21 Laboratory Results - last 24 hr 02/27/25 06:10 WBC 13.75 H RBC 3.68 L Hgb 11.5 Hct 32.4 L MCV 88 MCH 31.3 MCHC 35.5 RDW 13.1 Plt Count 48 L MPV 12.7 H Immature Gran % See Differential Neutrophils % 61.0 Band Neutrophils % 8 Lymphocytes % 5.0 Monocytes % 17.0 Eosinophils % 3.0 Basophils % 2.0 Metamyelocytes % 3 Myelocytes % 1 Nucleated RBC % 1.0 H Absolute Neutrophils 9.49 H Absolute Lymphocytes 0.69 L Absolute Monocytes 2.34 H Absolute Eosinophils 0.41 Absolute Basophils 0.28 H RBC Morphology See Below Polychromasia Present Sodium 133 L Potassium 3.3 L Chloride 97 L Carbon Dioxide 24.5 Anion Gap 11.5 H BUN 48 H Creatinine 1.7 H Est GFR (CKD-EPI 2020) 35.64 Glucose 78 Calcium 8.7 Total Bilirubin 9.9 H AST 39 H ALT 21 Alkaline Phosphatase 95 Total Protein 5.5 L Albumin 2.1 L Time Spent with Patient Time Spent with Patient: >50 minutes Time was spent: preparing to see the patient(eg.review tests), obtaining and/or reviewing separately otained hiistory, ordering medications,tests, procedures, referring, communicating with other health hospice care sales consultant, indepentently interpreting results and counseling the patient
[2025-02-27] MEDS: Prochlorperazine 10 MG/2 ML VIAL 5 MG IVP (12:09)
[2025-02-27 12:28] LABS: Lab Add On Test DONE
[2025-02-27 12:37] LABS: Magnesium 1.9 mg/dL (1.8-2.4)
[2025-02-27] MEDS: POTASSIUM CHLORIDE 10 MEQ/100 ML BAG 100 MEQ IV_INF (13:04)
[2025-02-27] MEDS: Nystatin POWDER 15 GM JAR TP ×2 (13:13→20:17)
[2025-02-27] MEDS: Potassium Chloride Liquid 20 MEQ PKT PO ×2 (14:06→20:00)
--- NOTE | 2025-02-27 15:11 | NT_ITS ---
PT Notes Visit Reasons: Acute hypoxic respiratory failure Date: 02/27/2025 Attempted multiple times today to work with Kelley, she wanted to wait until later the first time as she was not feeling well and had just taken medications, 1 time she was on the commode, 2 x sleeping, 1x just had gotten in bed. Our plan was to try bringing her by w/c to PT clinic to have access to O2 during treatment and more space to work on ambulation, balance, strength, transfers and eventually stairs. She is having a test/study tomorrow to communicate her status to [facility], she is not a good surgical candidate per MD notes due to advanced cirrhosis with portal hypertension and hyperbilirubinemia. She does report to me today that she cannot do this any longer, she does appear to be struggling more with her breathing as well. She has continued to participate in her transfers and although slow performing SBA per nursing staff. She was going to try taking the Dilotid after PT session today vs prior to due to feeling of fogginess but this did not happen. We discussed importance of pumping her ankles up and down and kicking her legs out and back when sitting to minimize DVT.
--- NOTE | 2025-02-27 15:44 | W.PM.PROGNOT ---
Date of Service Date of service: 02/27/25 Time of Service: 15:44 Assessment and Plan Assessment and plan (1) Abdominal pain: Status: Acute Assessment and plan: Acute intractible RUQ abdominal pain in the setting of gallstones, nausea, and worsening symptoms with food intake. Suspicious for acute cholecystitis though the classic imaging changes such as pericholecystic fluid are not present. She did have gb wall private branch exchange service advisor a period of a day which could be related to her cirrhosis and ascites, but given her symptoms I am suspicious she has a subacute or acute cholecystitis. Today her symptoms persist despite >48h on zosyn. She is unable to eat and nutritional status declining. WBC elevated at 13k today. A hepatobiliary scan will be diagnostic and will be available tomorrow. With her persistent illness and no improvement I feel she should be considered for cholecystostomy tube. GB scan will be helpful to confirm cholecystitis to ensure this is the right decision in advanced cirrhotic patient. Her elevated wbc today makes her fit the clinical picture for cholecystitis better. I recommend transfer to [facility] where her hepatology team is. Continue clear liquids only, zosyn and ursodiol. (2) Cholelithiasis: Status: Acute Assessment and plan: see above (3) Hepatic cirrhosis: Status: Acute Assessment and plan: complicates management of gallbladder. not a candidate for cholecystectomy here, and poor candidate for cholecystectomy anywhere. consider cholecystotostomy tube and tertiary center management of this complex patient. Subjective Subjective Interval history since last seen: Pt reports she feels the same. She denies feeling any worse but has not improved at all in regard to RUQ constant pain that worsens with PO intake. This pain is acute since friday. Exam Narrative Exam Narrative: jaundiced awake, NAD getting midline placed at time of my exam. normal resp effort speech is clear and coherent Objective Last Vital Signs Temp 97.5 F L 02/27/25 11:57 Pulse 84 02/27/25 11:57 Resp 18 02/27/25 11:57 BP 124/70 02/27/25 11:57 Pulse Ox 96 02/27/25 11:57 Laboratory Results - last 24 hr 02/27/25 06:10 WBC 13.75 H RBC 3.68 L Hgb 11.5 Hct 32.4 L MCV 88 MCH 31.3 MCHC 35.5 RDW 13.1 Plt Count 48 L MPV 12.7 H Immature Gran % See Differential Neutrophils % 61.0 Band Neutrophils % 8 Lymphocytes % 5.0 Monocytes % 17.0 Eosinophils % 3.0 Basophils % 2.0 Metamyelocytes % 3 Myelocytes % 1 Nucleated RBC % 1.0 H Absolute Neutrophils 9.49 H Absolute Lymphocytes 0.69 L Absolute Monocytes 2.34 H Absolute Eosinophils 0.41 Absolute Basophils 0.28 H RBC Morphology See Below Polychromasia Present Sodium 133 L Potassium 3.3 L Chloride 97 L Carbon Dioxide 24.5 Anion Gap 11.5 H BUN 48 H Creatinine 1.7 H Est GFR (CKD-EPI 2020) 35.64 Glucose 78 Calcium 8.7 Magnesium 1.9 Total Bilirubin 9.9 H AST 39 H ALT 21 Alkaline Phosphatase 95 Total Protein 5.5 L Albumin 2.1 L Add-On Test Request DONE Time Spent with Patient Time Spent with Patient: <25 minutes Time was spent: preparing to see the patient(eg.review tests), indepentently interpreting results and counseling the patient
[2025-02-27] MEDS: HYDROmorphone 2 MG/ML SYR 0.5 MG IVP (16:41)
[2025-02-27] MEDS: Normal Saline Flush 10 ML SYR IVP ×2 (17:54→20:01)
--- NOTE | 2025-02-28 | DI.NM_ITS ---
Exam(s) NM HEPATOBILIARY SCAN GRP EXAM: NM HEPATOBILIARY SCAN GRP CLINICAL HISTORY: distinguish cholelith w ascites VS cholecystitis. TECHNIQUE: Injected dose: 5 mCi Tc-99 mebrofenin Initial dynamic images: 60 minutes Addition images: 2 hour delayed images were obtained. COMPARISON: CT CT ABDOMEN PELVIS W from 02/24/2025 US US ABDOMEN LIMITED from 02/24/2025 FINDINGS: Normal hepatic transit time. Prompt excretion into the small bowel. The gallbladder is not visualized on this examination which was carried out to 2 hours post infusion. IMPRESSION: 1. The findings can be seen with acute cholecystitis. SNM guidelines: Gallbladder visualization should be present by 3 hours. Delayed [id number] transit beyond 60 min raises the suspicion for partial common bile duct (CBD) obstruction. Gallbladder ejection fraction <35% has a good correlation with acalculous disease (i.e., chronic acalculous cholecystitis, cystic duct syndrome, sphincter of Oddi disease).
[2025-02-28] MEDS: HYDROmorphone 2 MG/ML SYR 0.5 MG IVP ×2 (00:20→21:09)
[2025-02-28] MEDS: PIPERACILLIN/TAZO 3.375 GM in Normal Saline 50 ML IVPB ×5 (00:21→23:49)
[2025-02-28] MEDS: Levothyroxine 50 MCG TAB PO (06:26)
[2025-02-28] MEDS: Levothyroxine 150 MCG TAB 300 MCG PO (06:26)
[2025-02-28 07:13] LABS: INR 1.1 (0.9-1.1); Prothrombin Time 11.4 sec (9.1-11.1)
[2025-02-28 07:15] VITALS: BP 122/84; PULSE 93; RESP 17; TEMP 36.6; O2SAT 94
[2025-02-28 07:25] LABS: Ammonia < 10 umol/L (11-32)
[2025-02-28] MEDS: buPROPion-XL 150 MG TABCR 450 MG PO (10:36)
[2025-02-28] MEDS: DULoxetine 20 MG CAP PO (10:36)
[2025-02-28] MEDS: Ursodiol 300 MG CAP PO ×2 (10:36→19:47)
[2025-02-28] MEDS: Pantoprazole 40 MG TABCR PO (10:37)
[2025-02-28] MEDS: Rifaximin 550 MG TAB PO ×2 (10:37→19:47)
[2025-02-28] MEDS: Lactulose 20 GM/30 ML CUP PO ×2 (10:39→19:46)
[2025-02-28] MEDS: Cholecalciferol (Vitamin D3) 1,000 UNIT TAB 5000 UNITS PO (10:39)
[2025-02-28] MEDS: Folic Acid 1 MG TAB PO (10:39)
[2025-02-28] MEDS: Nystatin POWDER 15 GM JAR TP ×2 (10:41→19:50)
[2025-02-28 11:15] LABS: HCT 32.2 % (36.0-46.0); HGB 11.7 g/dL (11.2-15.7); MCH 32.0 pg (27.0-33.0); MCHC 36.3 % (32.0-36.0); MCV 88 fL (80-95); MPV 12.4 fL (8.0-11.0); RBC 3.66 10^6/uL (3.93-5.22); RDW 13.3 % (11.7-14.6); RDW-SD 42.0 fL; WBC 24.14 10^3/uL (4.4-10.8)
[2025-02-28 11:26] LABS: Abs Immature Grans 0.00 10^3/uL (0.0-0.06); Immature Grans % 0.0 %; Platelet Count 47 10^3/uL (130-400); RBC Morphology Normal
[2025-02-28 11:31] LABS: ALT 22 U/L (14-59); AST 41 U/L (15-37); Albumin 2.0 g/dL (3.4-5.0); Alkaline Phosphatase 127 U/L (46-116); Anion Gap 11.3 mmol/L (3-11); BUN 35 mg/dL (7-18); Bilirubin, Total 10.9 mg/dL (0.2-1.0); CO2 24.7 mmol/L (21.0-32.0); Calcium 8.4 mg/dL (8.5-10.1); Chloride 98 mmol/L (98-107); Estimated GFR 54.13 (mL/min/1.73m2); Glucose 88 mg/dL (74-106); Magnesium 1.7 mg/dL (1.8-2.4); Potassium 3.4 mmol/L (3.5-5.1); Sodium 134 mmol/L (136-145); Total Protein 4.9 g/dL (6.4-8.2)
[2025-02-28 12:15] VITALS: BP 123/81; PULSE 89; RESP 17; TEMP 36.4; O2SAT 95
[2025-02-28 12:20] VITALS: TEMP 36.3
--- NOTE | 2025-02-28 13:05 | PT.INTREAT ---
PT Notes Visit Reasons: Acute hypoxic respiratory failure Inpatient Physical Therapy Treatment Note [facility] Date: 02/28/2025 PRECAUTIONS:Fall. Standard. Activity as tolerated. SUBJECTIVE: Patient reports she is still feeling weak after her test this morning. She states she is waiting for test results and may be transition to [facility] for further medical management pending those results. OBJECTIVE: Jaundiced appearing female seated in bedside chair significant lymphedema noted bilateral lower extremities O2 via oxy mask IV infusing? PAIN: Denied VITALS: ?Monitored by nursing Therapeutic Activities ([id number][]): Direct one-on-one instruction in dynamic activities to improve functional performance. ? TRANSFERS? Sit-stand: SBA x 6 trials? Stand-sit: SBA x 6 trials? Chair- commode: SBA step turn? Commode?chair: SBA step turn Provided skilled cues and instruction on performance and technique throughout. ? Therapeutic Exercises ([id number]): Direct one-on-one instruction in therapeutic exercises to develop strength, endurance, range of motion and flexibility. ? Exercises ?Seated: Ankle pumps, LAQ, marching 10 reps with rest between each exercise Provided skilled instruction in proper exercise performance ASSESSMENT:?Patient continues with significant limitations in activity tolerance quickly fatigues. Patient agreeable to and able to participate in functional purposeful tasks for commode use at this time. Pt unable to ambulate with this PT however did amb with RECEPTIONIST [employer] LOUNGE from bed to chair in the am prior to testing. PLAN: 1-2x/day, 7 days/week x 1 week. Plan of care has been reviewed with the STUDIO SET UP WORKER providing the service under Physical Therapy direction. Initiate Physical Therapy intervention for strengthening, bed mobility, transfers, gait, stairs, balance training, use of assistive device. TREATMENT CODE/TIME: 30427, 18240/ [id number], [id number] DISCHARGE RECOMMENDATION: SNF vs HHPT pending medical status and ability to progress with goals.
[2025-02-28] MEDS: MAGNESIUM SULFATE 1 GM/100 ML BAG IV_INF (13:32)
--- NOTE | 2025-02-28 14:09 | W.PM.PROGNOT ---
Date of Service Date of service: 02/28/25 Time of Service: 14:09 Assessment and Plan Assessment and plan (1) Acute cholecystitis: Status: Acute Assessment and plan: The nonvisualization of the gallbladder today confirms a diagnosis of acute cholecystitis, and with elevation of her white blood cell count, as well as ongoing symptoms, I think this justifies some type of intervention. I did review her CT scan today. I would consider her cirrhosis to be quite advanced, and the recannulization of her umbilical vein, as well as massively dilated venous tributaries throughout her anterior abdominal wall pose significant risk for major surgical bleeding. I am not even sure that she would be offered surgery at a tertiary care center. At the very least, however, she should undergo percutaneous cholecystostomy for control of sepsis. I think her comorbidities certainly justify urgent or emergent transfer to a center that is equipped to treat patients with advanced cirrhosis. Subjective Subjective Interval history since last seen: Shana had an increase in her white blood cell count to 24,000 today, and a HIDA scan that shows nonvisualization of the gallbladder. Objective Last Vital Signs Temp 97.3 F L 02/28/25 12:20 Pulse 89 02/28/25 12:15 Resp 17 02/28/25 12:15 BP 123/81 02/28/25 12:15 Pulse Ox 95 02/28/25 12:15 Laboratory Results - last 24 hr 02/28/25 06:38 WBC 24.14 H RBC 3.66 L Hgb 11.7 Hct 32.2 L MCV 88 MCH 32.0 MCHC 36.3 H RDW 13.3 Plt Count 47 L MPV 12.4 H Immature Gran % 0.0 Neutrophils % 65.0 Band Neutrophils % 13 Lymphocytes % 10.0 Monocytes % 7.0 Eosinophils % 1.0 Basophils % 0.0 Metamyelocytes % 3 Myelocytes % 1 Nucleated RBC % 0.1 Absolute Neutrophils 18.83 H Absolute Lymphocytes 2.41 Absolute Monocytes 1.69 H Absolute Eosinophils 0.24 Absolute Basophils 0.00 RBC Morphology Normal PT 11.4 H INR 1.1 Sodium 134 L Potassium 3.4 L Chloride 98 Carbon Dioxide 24.7 Anion Gap 11.3 H BUN 35 H Creatinine 1.2 H Est GFR (CKD-EPI 2020) 54.13 Glucose 88 Calcium 8.4 L Magnesium 1.7 L Total Bilirubin 10.9 H AST 41 H ALT 22 Alkaline Phosphatase 127 H Ammonia < 10 L Total Protein 4.9 L Albumin 2.0 L Time Spent with Patient Time Spent with Patient: <25 minutes Time was spent: preparing to see the patient(eg.review tests), referring, communicating with other health outdoor emergency care technician and care coordination
[2025-02-28] MEDS: Potassium Chloride 20 MEQ TABCR PO (14:21)
[2025-02-28 15:28] VITALS: BP 106/88; PULSE 88; RESP 16; TEMP 36.4; O2SAT 96
--- NOTE | 2025-02-28 16:07 | PDOC.CMPRO ---
Date of service: 02/28/25 Time of Service: 16:07 Care Management Progress Note Progress Note Text Progress Note Text: Kelley was sitting up in the bedside chair when CM met with her today. She looked tired, and stated that she feels tired. She was very friendly and upbeat with CM today, despite the fact that she is not really feeling better, and her provider is looking to transfer her to a tertiary facility. It appears that Kelley will need her gallbladder out, but we are unable to perform at this facility due to her liver disease. Kelley asked CM to help her complete her AD today. This was done. Copy sent to registry and to medical records. 6 copies and original to Kelley. Kelley also met with Palliative care provider today. Discharge Potential Discharge Needs: PCP F/U Appt and Other (GI f/u Possible transfer to tertiary facility) Anticipated Barriers to Discharge: Bed availability and Medical Status Patient/Family Education Needs: Review discharge instructions, discuss Ask Me Three Transportation: Private vehicle Plan: Anticipate that Kelley will return home with no new services once medically cleared, vs. transfer to tertiary facility. Regardless, she will f/u with her PCP and with her GI specialist and continue per her plan of care. CM will continue to follow and update the plan as needed. Social Determinants of Health Screening Social Determinants of health last assessed in clinic: 02/28/25 Will the Patient Participate in the Screening?: Yes Do you worry about having a steady place to live?: no Problems where you live: no known problems In the past 12 months, have you had to go without electric, gas, oil or water in your home?: no 1. Within the past 12 months, we worried whether our food would run out before we got money to buy more.: Never true 2. Within the past 12 months, the food we bought just didn't last and we didn't have money to get more.: Never true Has lack of transportation kept you from medical appointments or from doing things needed for daily living?: no Has anyone in your life made you feel unsafe or unsupported?: no How hard is it for you to pay for the very basics like food, housing, medical care, and heating? Would you say it is:: Not hard at all Do you want help finding or keeping work or a job?: I do not need or want help If for any reason you need help with day-to-day activities such as bathing, preparing meals, shopping, managing finances, etc., do you get the help you need?: I don?t need any help How often do you feel lonely or isolated from those around you?: Sometimes Do you speak a language other than Spanish at home?: No Does the patient want assistance with any of the above?: No Health Related Social Needs Health related social needs: feeling lonely/isolated (Z60.8) Health related social needs details: couldn't work for a month
--- NOTE | 2025-02-28 17:04 | W.PALLCONSUL ---
Date of service: 02/28/25 Time of Service: 15:00 History of Present Illness Narrative: Ms. Benson is a 54 y/o F currently hospitalized 2/2 cholelithiasis vs cholecystitis; PMHx sig for FISHER/MASLD, autoimmune gastritis, CHF, h/o breast cancer, h/o renal stones Hospital Course: Kelley presented to ED on 02/23 w/CC back pain, d/c'd home w/Dilaudid, represented 02/24 w/increased abdominal/back pain; CT confirmed hepatic cirrhosis, splenomegaly, ascites, portal HTN, esophageal varices, cholelithiasis vs cholecystitis, fatty tumor in cecum; started on Lasix IV w/concerns w/CHF overload, hypoxic; admited for acute hypoxic resp failure, started on 3L; she returned to baseline resp status; scheduled for ECHO on Friday; surgical consult: high surgical risk recommending conservative tx w/abx, ursodiol, diet; after 48 hrs on abx she had increased WBC, decreased functional status, pending hepatobiliary scan scheduled for today; surgery recommending consider cholecystostomy tube and recommend transfer d/t not surgical candidate at [facility]; placed NPO - pain controlled w/hydromorphone, nausea Compazine - transfer pending up until late this afternoon, [facility] accepted transfer pending bed availability Kelley agrees to Palliative Visit today; she has just reviewed/completed her AD w/CM; she is happy to have gotten this document completed, it was on her list of things; she would like to also have some resources shared regarding completing a will Kelley had breast cancer in 2013, she underwent a total mastectomy w/some post surgical complications, she completed chemotherapy and radiation and has been in remission for some time. She was dx w/liver disease in 2020 after an episode of vomiting blood w/Vanita-Elaine tear, dx w/portal HTN at that time; reports GI states cause of her liver disease is they don't know much, they suspect chemotherapy related. She reports she was a moderate user of alcohol until 2020, she stopped at time of initial dx, she was using alcohol daily w/multiple drinks daily, never in the morning. She has had 2 episodes of HE, hepatic encephalopathy, these scare her as she is not always sure folks around her are aware and she is confused; she is on lactulose and rifaximin for this, x2mos. reports this has been working well for her. She continues to have R sided mid-low back pain, reports Dilaudid has been helpful for other pains, but not knocking this one out all the way. She lives in [facility]; her son Leroy is in process of considering moving back in w/her baggage agent supervisor, has been spending more time there; him and his GF are looking to move in together and are considering moving in with her, she likes this idea, they have offered to pay rent; his gf is an L D RN, which she is happy about - she is worried about her son bc he recently lost his dad in November; she is hopeful that she will recover from this acute illness to avoid a second tragedy for him. She would like to be able to eat something or drink water; aware she is NPO pending a transfer; she would like the transfer to be as close as possible for her son, but understands that she may have to go further. Assessment and Plan Assessment and plan (1) Acute hypoxemic respiratory failure: Status: Acute Assessment and plan: returned to baseline (2) Acute cholecystitis: Status: Acute Assessment and plan: pending transfer to [facility] for potential choleystostomy tube vs gallbladder removal (3) Abdominal pain: Status: Acute Assessment and plan: continue IV diluadid PRN (4) Hepatic cirrhosis: Status: Acute Assessment and plan: f/b [facility] (5) Esophageal varices: (6) Portal hypertension: (7) Ascites: Status: Acute (8) Mass of cecum: Status: Acute Assessment and plan: need for review in f/u visits; recommended colonoscopy for follow up (9) Anasarca: Status: Acute (10) Palliative care patient: Status: Acute Assessment and plan: PC will continue to follow, anticipate outpatient, provided number to contact office directly to contact in 1 mo for scheduling (11) ACP (advance care planning): Status: Acute Assessment and plan: reviewed and witnessed completed AD today; HCA son Bashir, would want LST if able to communicate, live w/o incapacitating pain, be conscious/aware, care for self; would want trial interventions attempted for all LST if the above were not true, feels that a month trial timeline feels appropriate, would want to continue reviewing reviewed process for completing will, w/recommendations to connect w/local [place] ortho/prosthetic aide/patent prosecution paralegal for appropriate completion reviewed current health diagnosis w/liver disease, gallbladder disease and breast cancer, timeline and treatments; reviewed preferences in care, transfer and NPO recommendation purpose spent 30m w/ACP Review of Systems Narrative: as per HPI PFSH All Active Problems (Updated 02/28/25 @ 17:20 by Bertha Duncan NP) Palliative care patient (Acute) ACP (advance care planning) (Acute) Acute cholecystitis (Acute) Hypokalemia (Acute) Ascites (Acute) Cholelithiasis (Acute) Elevated brain natriuretic peptide (BNP) level (Acute) Abdominal pain (Acute) Elevated INR (Acute) Hyperbilirubinemia (Acute) Hepatic cirrhosis (Acute) Distended umbilical veins (Acute) Mass of cecum (Acute) Anasarca (Acute) Acute hypoxemic respiratory failure (Acute) Atypical chest pain (Acute) Medical History Hypothyroid HTN (hypertension) Portal hypertension Esophageal varices Breast cancer Surgical History H/O breast surgery Social History Smoking/Tobacco Use Status: Former Tobacco Use Smoking risk assessment performed?: Yes Alcohol Intake: former Drug use: Never Substance use type: does not use Housing: house Do you feel safe at home: Yes Do you feel safe in your relationship?: Yes Exam Narrative Exam Narrative: General: ill appearing F sitting in recliner in hospital room, sleeping at first attempt; awake second attempt, easily engages HEENT: normocephalic, atraumatic, alopecia, MMM w/mouth swabs/cup of water at bedside, hearing grossly WNL Resp: even and unlabored, speaks full sentences w/o SOB; no cough, no audible wheeze Ext: generalized edema present all extremities Psych: pleasant, cooperative, mood/affect WNL; thought process impoverished, loose association, insight/judgment fair to limited Results Last Vital Signs Temp 97.5 F L 02/28/25 15:28 Pulse 88 02/28/25 15:28 Resp 16 02/28/25 15:28 BP 106/88 02/28/25 15:28 Pulse Ox 96 02/28/25 15:28 Labs 02/28/25 06:38 02/28/25 06:38 Labs: Laboratory Results - last 24 hr 02/28/25 06:38 WBC 24.14 H RBC 3.66 L Hgb 11.7 Hct 32.2 L MCV 88 MCH 32.0 MCHC 36.3 H RDW 13.3 Plt Count 47 L MPV 12.4 H Immature Gran % 0.0 Neutrophils % 65.0 Band Neutrophils % 13 Lymphocytes % 10.0 Monocytes % 7.0 Eosinophils % 1.0 Basophils % 0.0 Metamyelocytes % 3 Myelocytes % 1 Nucleated RBC % 0.1 Absolute Neutrophils 18.83 H Absolute Lymphocytes 2.41 Absolute Monocytes 1.69 H Absolute Eosinophils 0.24 Absolute Basophils 0.00 RBC Morphology Normal PT 11.4 H INR 1.1 Sodium 134 L Potassium 3.4 L Chloride 98 Carbon Dioxide 24.7 Anion Gap 11.3 H BUN 35 H Creatinine 1.2 H Est GFR (CKD-EPI 2020) 54.13 Glucose 88 Calcium 8.4 L Magnesium 1.7 L Total Bilirubin 10.9 H AST 41 H ALT 22 Alkaline Phosphatase 127 H Ammonia < 10 L Total Protein 4.9 L Albumin 2.0 L Time Spent Time Spent with Patient Time Spent(min): 65
--- NOTE | 2025-02-28 19:21 | PGE_ITS ---
Date of Service Date of service: 02/28/25 Time of Service: 19:21 Assessment and Plan Assessment and plan (1) Acute cholecystitis: Status: Acute Assessment and plan: Nonvisualization of the gallbladder on today?s hepatobiliary scan is consistent with acute cholecystitis. The patient?s elevated WBC and persistent abdominal symptoms further support this diagnosis. CT imaging reviewed: demonstrates advanced cirrhosis with recanalization of the umbilical vein and massively dilated venous tributaries throughout the anterior abdominal wall, creating substantial risk for major surgical bleeding. Given the extent of her liver disease, it is uncertain whether she would even be considered a candidate for surgical cholecystectomy at a tertiary center. WBC up to 24 today; Plt 47; Tbili 10.9 * At minimum, patient requires percutaneous cholecystostomy for source control and sepsis management. * Given her advanced cirrhosis and high surgical risk, urgent transfer to a tertiary care center capable of managing patients with decompensated cirrhosis and complex hepatobiliary disease is warranted. * Continue NPO, IV antibiotics, and supportive management while awaiting transfer. [facility] - patient now accepted at [facility] (closest facility) patient is in agreement with plan of care and transport. She is a full code. (2) Abdominal pain: Status: Acute Assessment and plan: Surgery following PRN hydromporphone PRN compazine for nausea NM hepatobiliary scan - acute cholycystitis. (3) Hyperbilirubinemia: Status: Acute Assessment and plan: 10.9 continue antibiotics, ursodiol, and dietary modification is preferred. (4) Cholelithiasis: Status: Acute Assessment and plan: as above (5) Hepatic cirrhosis: Status: Acute Assessment and plan: History of metabolic dysfunction associated steatohepatitis ( MASLD) / (FISHER) and now portal vein congestion - might be exacerbated as evidenced by transaminitis Hepatitis profile negative Tbili 10.9 Plt (6) Acute hypoxemic respiratory failure: Status: Acute Assessment and plan: Not on home oxygen now requires oxygen via oxy mask 2 liters /min goal sat >92% respiratory following I/S and pulmonary toileting (7) Elevated brain natriuretic peptide (BNP) level: Status: Acute Assessment and plan: no previous history of CHF Echo EF 60%, No WMA but cannot be accurately assessed. Moderate tricuspid regurgitation. was diuresed Continue gentle IV fluids continue to closely follow labs (8) Hypokalemia: Status: Acute Assessment and plan: in setting of limited po intake and diuresis replete and follow mag level 1.7 repleted Potassium 3.4 IV potassium repletion (9) Elevated INR: Status: Acute Assessment and plan: was stabel at INR 1.1 recheck in am TEDS for DVT prophylaxis (10) Ascites: Status: Acute Assessment and plan: As per imaging with portal system hypertension no evidence of SBP no paracentesis indicated at this time (11) Mass of cecum: Status: Acute Assessment and plan: Fatty tumor in cecum at level of ileocecal valve on imaging Outpatient colonoscopy discussed in the ED Surgery consulted inpatient discussed with Dr Ruiz. Objective Last Vital Signs Temp 36.4 C L 02/28/25 15:28 Pulse 88 02/28/25 15:28 Resp 16 02/28/25 15:28 BP 106/88 02/28/25 15:28 Pulse Ox 96 02/28/25 15:28 Laboratory Results - last 24 hr 02/28/25 06:38 WBC 24.14 H RBC 3.66 L Hgb 11.7 Hct 32.2 L MCV 88 MCH 32.0 MCHC 36.3 H RDW 13.3 Plt Count 47 L MPV 12.4 H Immature Gran % 0.0 Neutrophils % 65.0 Band Neutrophils % 13 Lymphocytes % 10.0 Monocytes % 7.0 Eosinophils % 1.0 Basophils % 0.0 Metamyelocytes % 3 Myelocytes % 1 Nucleated RBC % 0.1 Absolute Neutrophils 18.83 H Absolute Lymphocytes 2.41 Absolute Monocytes 1.69 H Absolute Eosinophils 0.24 Absolute Basophils 0.00 RBC Morphology Normal PT 11.4 H INR 1.1 Sodium 134 L Potassium 3.4 L Chloride 98 Carbon Dioxide 24.7 Anion Gap 11.3 H BUN 35 H Creatinine 1.2 H Est GFR (CKD-EPI 2020) 54.13 Glucose 88 Calcium 8.4 L Magnesium 1.7 L Total Bilirubin 10.9 H AST 41 H ALT 22 Alkaline Phosphatase 127 H Ammonia < 10 L Total Protein 4.9 L Albumin 2.0 L Time Spent with Patient Time Spent with Patient: 25-34 minutes Time was spent: preparing to see the patient(eg.review tests), ordering medications,tests, procedures, referring, communicating with other health workforce investment act career manager, indepentently interpreting results, counseling the patient and care coordination
[2025-02-28 19:34] VITALS: BP 124/81; PULSE 90; RESP 20; TEMP 36.8; O2SAT 97
[2025-02-28] MEDS: Normal Saline Flush 10 ML SYR IVP (19:47)
[2025-02-28] MEDS: Normal Saline 1,000 ML 75 ML IV (21:10)
[2025-02-28 23:17] VITALS: BP 134/84; PULSE 87; RESP 20; TEMP 36.4; O2SAT 90
[2025-03-01 03:22] VITALS: BP 140/82; PULSE 85; RESP 20; TEMP 36.1; O2SAT 90
[2025-03-01] MEDS: PIPERACILLIN/TAZO 3.375 GM in Normal Saline 50 ML IVPB ×4 (05:57→23:44)
[2025-03-01] MEDS: HYDROmorphone 2 MG/ML SYR 0.5 MG IVP ×2 (06:03→23:10)
[2025-03-01] MEDS: Normal Saline Flush 10 ML SYR IVP ×5 (06:04→23:11)
[2025-03-01 06:52] LABS: HCT 32.5 % (36.0-46.0); HGB 11.4 g/dL (11.2-15.7); MCH 30.7 pg (27.0-33.0); MCHC 35.1 % (32.0-36.0); MCV 88 fL (80-95); MPV 12.4 fL (8.0-11.0); RBC 3.71 10^6/uL (3.93-5.22); RDW 13.7 % (11.7-14.6); RDW-SD 42.8 fL
[2025-03-01 07:03] LABS: INR 1.1 (0.9-1.1); Prothrombin Time 11.1 sec (9.1-11.1)
[2025-03-01 07:04] LABS: WBC 36.73 10^3/uL (4.4-10.8)
[2025-03-01 07:05] LABS: Abs Immature Grans 0.00 10^3/uL (0.0-0.06); Immature Grans % 0.0 %; Platelet Count 51 10^3/uL (130-400); RBC Morphology Normal
[2025-03-01 07:08] LABS: ALT 17 U/L (14-59); AST 36 U/L (15-37); Albumin 2.0 g/dL (3.4-5.0); Alkaline Phosphatase 145 U/L (46-116); Anion Gap 9.1 mmol/L (3-11); BUN 25 mg/dL (7-18); Bilirubin, Total 11.0 mg/dL (0.2-1.0); CO2 24.9 mmol/L (21.0-32.0); Calcium 8.9 mg/dL (8.5-10.1); Chloride 99 mmol/L (98-107); Estimated GFR 76.44 (mL/min/1.73m2); Glucose 90 mg/dL (74-106); Magnesium 1.9 mg/dL (1.8-2.4); Potassium 3.4 mmol/L (3.5-5.1); Sodium 133 mmol/L (136-145); Total Protein 5.6 g/dL (6.4-8.2)
[2025-03-01 07:15] LABS: Ammonia < 10 umol/L (11-32)
[2025-03-01 07:56] VITALS: BP 121/81; PULSE 85; RESP 18; TEMP 36.1; O2SAT 94
[2025-03-01] MEDS: Cholecalciferol (Vitamin D3) 1,000 UNIT TAB 5000 UNITS PO (08:22)
[2025-03-01] MEDS: Ursodiol 300 MG CAP PO ×2 (08:22→20:56)
[2025-03-01] MEDS: Rifaximin 550 MG TAB PO ×2 (08:22→20:56)
[2025-03-01] MEDS: DULoxetine 20 MG CAP PO (08:22)
[2025-03-01] MEDS: Folic Acid 1 MG TAB PO (08:22)
[2025-03-01] MEDS: buPROPion-XL 150 MG TABCR 450 MG PO (08:22)
[2025-03-01] MEDS: Pantoprazole 40 MG VIAL IVP (08:23)
[2025-03-01] MEDS: Lactulose 20 GM/30 ML CUP PO ×2 (08:23→20:56)
[2025-03-01] MEDS: Nystatin POWDER 15 GM JAR TP ×2 (08:36→20:56)
[2025-03-01 11:40] VITALS: BP 127/80; PULSE 88; RESP 17; TEMP 36.4; O2SAT 94
[2025-03-01] MEDS: POTASSIUM CHLORIDE 10 MEQ/100 ML BAG 100 MEQ IV_INF ×2 (11:45→12:53)
--- NOTE | 2025-03-01 13:28 | W.PM.PROGNOT ---
Date of Service Date of service: 03/01/25 Time of Service: 13:28 Assessment and Plan Assessment and plan (1) Acute cholecystitis: Status: Acute Assessment and plan: Acute cholecystitis. The patient?s elevated WBC - now up to 36.73 and persistent abdominal symptoms further support this diagnosis. CT imaging reviewed: demonstrates advanced cirrhosis with recanalization of the umbilical vein and massively dilated venous tributaries throughout the anterior abdominal wall, creating substantial risk for major surgical bleeding. Given the extent of her liver disease, it is uncertain whether she would even be considered a candidate for surgical cholecystectomy at a tertiary center. WBC up to 36.73 today; Plt 51; Tbili 11 At minimum, patient requires percutaneous cholecystostomy for source control and sepsis management. Given her advanced cirrhosis and high surgical risk, urgent transfer to a tertiary care center capable of managing patients with decompensated cirrhosis and complex hepatobiliary disease is warranted. Continue NPO, IV antibiotics, and supportive management while awaiting transfer. Called 7 hospitals - patient now accepted at [facility] (closest facility) patient is in agreement with plan of care and transport. She is a full code. We are waiting for a bed at [facility] - I personally called and updated the transfer ctr regarding todays labs and patient condition. (2) Abdominal pain: Status: Acute Assessment and plan: Surgery following PRN hydromporphone PRN compazine for nausea NM hepatobiliary scan - acute cholycystitis. (3) Hyperbilirubinemia: Status: Acute Assessment and plan: 11 continue antibiotics, and clears until bed avail, then NPO again (4) Cholelithiasis: Status: Acute Assessment and plan: as above (5) Hepatic cirrhosis: Status: Acute Assessment and plan: History of metabolic dysfunction associated steatohepatitis ( MASLD) / (FISHER) and now portal vein congestion - might be exacerbated as evidenced by transaminitis Hepatitis profile negative Tbili 11 Plt 51 (6) Acute hypoxemic respiratory failure: Status: Acute Assessment and plan: Not on home oxygen now requires oxygen via oxy mask 2 liters /min goal sat >92% respiratory following I/S and pulmonary toileting (7) Elevated brain natriuretic peptide (BNP) level: Status: Acute Assessment and plan: no previous history of CHF Echo EF 60%, No WMA but cannot be accurately assessed. Moderate tricuspid regurgitation. was diuresed Continue gentle IV fluids continue to closely follow labs (8) Hypokalemia: Status: Acute Assessment and plan: in setting of limited po intake and diuresis replete and follow mag level 1.9 Potassium 3.4 IV potassium repletion (9) Elevated INR: Status: Acute Assessment and plan: was stabel at INR 1.1 (unchanged from yesterday) recheck in am TEDS for DVT prophylaxis (10) Ascites: Status: Acute Assessment and plan: As per imaging with portal system hypertension no evidence of SBP no paracentesis indicated at this time (11) Mass of cecum: Status: Acute Assessment and plan: Fatty tumor in cecum at level of ileocecal valve on imaging Outpatient colonoscopy discussed in the ED Surgery consulted inpatient discussed with Dr Archibald Exam Const General: cooperative, comfortable and no acute distress Nutritional Appearance: overweight Orientation: alert, awake and oriented x3 HENMT Head: normal to inspection, normocephalic and atraumatic Face and sinus: normal facial exam Mouth: oral mucosae normal Eyes Alignment and Position: alignment normal Sclera: scleral abnormality bilaterally (icteric) EOM: EOM intact bilaterally Neck Neck: normal visual inspection and full ROM Chest Chest: normal inspection of the chest Resp Effort & Inspection: normal respiratory effort and able to speak in complete sentences Auscultation: clear to auscultation bilaterally Cardio Rate: regular rate Rhythm: regular rhythm GI Inspection: normal to inspection, distended and obesity Palpation: soft and tender Skin General skin exam: jaundice Objective Last Vital Signs Temp 36.4 C L 03/01/25 11:40 Pulse 88 03/01/25 11:40 Resp 17 03/01/25 11:40 BP 127/80 03/01/25 11:40 Pulse Ox 94 03/01/25 11:40 Laboratory Results - last 24 hr 03/01/25 06:42 WBC 36.73 H* RBC 3.71 L Hgb 11.4 Hct 32.5 L MCV 88 MCH 30.7 MCHC 35.1 RDW 13.7 Plt Count 51 L MPV 12.4 H Immature Gran % 0.0 Neutrophils % 84.0 Band Neutrophils % 7 Lymphocytes % 3.0 Monocytes % 5.0 Eosinophils % 0.0 Basophils % 0.0 Metamyelocytes % 1 Nucleated RBC % 0.1 Absolute Neutrophils 33.42 H Absolute Lymphocytes 1.10 L Absolute Monocytes 1.84 H Absolute Eosinophils 0.00 Absolute Basophils 0.00 RBC Morphology Normal PT 11.1 INR 1.1 Sodium 133 L Potassium 3.4 L Chloride 99 Carbon Dioxide 24.9 Anion Gap 9.1 BUN 25 H Creatinine 0.9 Est GFR (CKD-EPI 2020) 76.44 Glucose 90 Calcium 8.9 Magnesium 1.9 Total Bilirubin 11.0 H AST 36 ALT 17 Alkaline Phosphatase 145 H Ammonia < 10 L Total Protein 5.6 L Albumin 2.0 L Time Spent with Patient Time Spent with Patient: 25-34 minutes Time was spent: preparing to see the patient(eg.review tests), ordering medications,tests, procedures, referring, communicating with other health primary care sales representative, indepentently interpreting results, counseling the patient and care coordination
[2025-03-01 14:49] VITALS: BP 137/82; PULSE 86; RESP 17; TEMP 36.4; O2SAT 97
--- NOTE | 2025-03-01 14:49 | CHAPLAIN ---
Kelley was sitting up in bed when I visited. She shared some personal history, telling me about living in [place], [place], [place], [place], and now [place] [facility]. 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 She talks about her son, Bashir, being her best support. Kelley has been dealing with medical issues for several years, including breast cancer and having a double mastectomy and chemotherapy. She is currently waiting to be transferred for [facility] for surgery and is anxious about going farther from home and being alone, and about not knowing exactly what the care plan is. We talked about her reaction being a very common and human, when we aren't in control of things. Kelley was raised Anglican and hasn't attended a Anglican latter day in many years. She prays and has conversations with God routinely. She had a near experience during a surgery in which she was aware of her mom's presence. Her mom a few years ago. Since that experience, Kelley said she's has a sense of renewed calm and belief that her mom is watching out for her. I offered a prayer with Kelley. I will continue to visit.
--- NOTE | 2025-03-01 16:16 | PDOC.CMPRO ---
Date of service: 03/01/25 Time of Service: 16:16 Care Management Progress Note Progress Note Text Progress Note Text: Kelley was sitting up in bed when CM met with her today. She was very pleasant. She and CM had a really nice talk. Kelley has been accepted at [facility] for treatment of her acute cholecystitis which is complicated by her liver disease. Kelley is aware of this transfer, and also aware that it is not likely until tomorrow afternoon. She is hoping that she will return to [facility] for her recovery. Kelley is allowed to have clear liquids today, which has made her a bit happier than her previous NPO status. She did state that if she drinks too much or too quickly, it causes pain. She feels that her gallbladder has gotten bigger since she has been here, and is anxious to start recovery. Discharge Potential Discharge Needs: Other (transfer to [facility] - likely bed available tomorrow) Anticipated Barriers to Discharge: Bed availability ([facility] has informed [facility] they believe a bed will be available tomorrow) Patient/Family Education Needs: Review discharge instructions, discuss Ask Me Three Transportation: EMS Plan: Kelley will transfer to [facility] when a bed becomes available. She will continue with the treatment of her acute cholecystits at this tertiary facility. Kelley will transport via EMS. CM will continue to follow. Social Determinants of Health Screening Social Determinants of health last assessed in clinic: 03/01/25 Will the Patient Participate in the Screening?: Yes Do you worry about having a steady place to live?: no Problems where you live: no known problems In the past 12 months, have you had to go without electric, gas, oil or water in your home?: no 1. Within the past 12 months, we worried whether our food would run out before we got money to buy more.: Don't know/refused 2. Within the past 12 months, the food we bought just didn't last and we didn't have money to get more.: Don't know/refused Has lack of transportation kept you from medical appointments or from doing things needed for daily living?: no Has anyone in your life made you feel unsafe or unsupported?: no How hard is it for you to pay for the very basics like food, housing, medical care, and heating? Would you say it is:: Not hard at all Do you want help finding or keeping work or a job?: I do not need or want help If for any reason you need help with day-to-day activities such as bathing, preparing meals, shopping, managing finances, etc., do you get the help you need?: I don?t need any help How often do you feel lonely or isolated from those around you?: Sometimes Do you speak a language other than Bulgarian at home?: No Does the patient want assistance with any of the above?: No Health Related Social Needs Health related social needs: feeling lonely/isolated (Z60.8) Health related social needs details: couldn't work for a month
--- NOTE | 2025-03-01 18:22 | PT.INNT ---
PT Notes Visit Reasons: Acute hypoxic respiratory failure Pt approached for PT . pt reports not feeling well and returned to bed just prior to this PT entering room. Pt states she is likely transferring to [facility] tomorrow. Nurse aware. Per S[employer]OCI[employer] pt has been getting out of bed to use commode and walked to the commode ~12 feet from bed and back with SBA.
[2025-03-01 19:30] VITALS: BP 136/84; PULSE 91; RESP 20; TEMP 36.9; O2SAT 93
[2025-03-01 21:18] LABS: HCT 32.9 % (36.0-46.0); HGB 11.7 g/dL (11.2-15.7); MCH 31.2 pg (27.0-33.0); MCHC 35.6 % (32.0-36.0); MCV 88 fL (80-95); MPV 12.1 fL (8.0-11.0); RBC 3.75 10^6/uL (3.93-5.22); RDW 14.0 % (11.7-14.6); RDW-SD 43.4 fL
[2025-03-01 21:21] LABS: WBC 36.38 10^3/uL (4.4-10.8)
[2025-03-01 21:36] LABS: Platelet Count 59 10^3/uL (130-400); RBC Morphology Normal
[2025-03-01] MEDS: Normal Saline 1,000 ML 75 ML IV (21:37)
[2025-03-01 22:14] VITALS: BP 136/84; PULSE 90; RESP 22; TEMP 36.4; O2SAT 95
[2025-03-02] VITALS (54 sets, daily range): BP systolic 114–143; BP diastolic 68–85; PULSE 86–98; RESP 16–26; TEMP 35.8–36.3; O2SAT 90–96
[2025-03-02] MEDS: PIPERACILLIN/TAZO 3.375 GM in Normal Saline 50 ML IVPB ×2 (06:19→11:29)
[2025-03-02 07:02] LABS: Abs Immature Grans 4.94 10^3/uL (0.0-0.06); HCT 32.5 % (36.0-46.0); HGB 11.4 g/dL (11.2-15.7); MCH 31.1 pg (27.0-33.0); MCHC 35.1 % (32.0-36.0); MCV 89 fL (80-95); MPV 12.6 fL (8.0-11.0); RBC 3.66 10^6/uL (3.93-5.22); RDW 13.9 % (11.7-14.6); RDW-SD 44.0 fL
[2025-03-02 07:22] LABS: Anion Gap 9.7 mmol/L (3-11); BUN 18 mg/dL (7-18); CO2 24.3 mmol/L (21.0-32.0); Calcium 8.6 mg/dL (8.5-10.1); Chloride 98 mmol/L (98-107); Estimated GFR 103.35 (mL/min/1.73m2); Glucose 70 mg/dL (74-106); Magnesium 1.8 mg/dL (1.8-2.4); Potassium 3.7 mmol/L (3.5-5.1); Sodium 132 mmol/L (136-145)
[2025-03-02 07:32] LABS: WBC 38.27 10^3/uL (4.4-10.8)
[2025-03-02 07:43] LABS: Platelet Count 63 10^3/uL (130-400)
[2025-03-02 07:44] LABS: RBC Morphology Normal
[2025-03-02] MEDS: buPROPion-XL 150 MG TABCR 450 MG PO (07:52)
[2025-03-02] MEDS: Ursodiol 300 MG CAP PO (07:52)
[2025-03-02] MEDS: Cholecalciferol (Vitamin D3) 1,000 UNIT TAB 5000 UNITS PO (07:53)
[2025-03-02] MEDS: Pantoprazole 40 MG VIAL IVP (07:53)
[2025-03-02] MEDS: Rifaximin 550 MG TAB PO (07:53)
[2025-03-02] MEDS: DULoxetine 20 MG CAP PO (07:53)
[2025-03-02] MEDS: Folic Acid 1 MG TAB PO (07:53)
[2025-03-02] MEDS: Normal Saline 10 ML VIAL IJ (07:53)
[2025-03-02] MEDS: Normal Saline Flush 10 ML SYR (07:54)
[2025-03-02] MEDS: Lactulose 20 GM/30 ML CUP PO (08:03)
[2025-03-02] MEDS: Normal Saline Flush 10 ML SYR IVP (08:04)
[2025-03-02 09:57] LABS: Lab Add On Test DONE
[2025-03-02 10:10] LABS: ALT 20 U/L (14-59); AST 50 U/L (15-37); Albumin 1.9 g/dL (3.4-5.0); Alkaline Phosphatase 173 U/L (46-116); Bilirubin, Direct 6.7 mg/dL (0.0-0.2); Bilirubin, Total 10.0 mg/dL (0.2-1.0); Total Protein 5.6 g/dL (6.4-8.2)
--- NOTE | 2025-03-02 10:57 | PHA.REVIEW2 ---
Pharmacy Admission Review Admission Clinical Review Admission Pharmacy Review: Palliative care patient (Acute) ACP (advance care planning) (Acute) Acute cholecystitis (Acute) Hypokalemia (Acute) Ascites (Acute) Cholelithiasis (Acute) Elevated brain natriuretic peptide (BNP) level (Acute) Abdominal pain (Acute) Elevated INR (Acute) Hyperbilirubinemia (Acute) Hepatic cirrhosis (Acute) Distended umbilical veins (Acute) Mass of cecum (Acute) Anasarca (Acute) Acute hypoxemic respiratory failure (Acute) levofloxacin (From Levaquin) Allergy (Intermediate, Unverified 02/24/25 07:15) Other (See Comment) Sulfa (Sulfonamide Antibiotics) Allergy (Intermediate, Unverified 02/24/25 07:15) Skin Rash tamoxifen Allergy (Intermediate, Unverified 02/24/25 07:15) Skin Rash vancomycin Allergy (Intermediate, Unverified 02/24/25 07:15) Unknown doxycycline Allergy (Verified 02/24/25 07:15) Skin Rash linezolid Allergy (Verified 02/24/25 07:15) Hives adhesive tape Adverse Reaction (Verified 02/24/25 07:15) Hives ciprofloxacin Adverse Reaction (Verified 02/24/25 07:15) Skin Rash Resuscitation Status Full Code Height 5 ft 4 in Weight 125.101 kg Comments Comments/Follow Ups: Transfer pending bed availability Pharmacy Admission Review Renal Dosing Renal Dosing: BUN 18 mg/dL (7-18) 03/02/25 06:05 Creatinine 0.7 mg/dL (0.55-1.02) 03/02/25 06:05 Medications needing adjustments: Reviewed (CrCl 121.58 mL/min, BUN decreased from 25) List of meds needing interventions: Current medications are okay Anticoagulation Anticoagulation: Hgb 11.4 g/dL (11.2-15.7) 03/02/25 06:05 Hct 32.5 % (36.0-46.0) L 03/02/25 06:05 Plt Count 63 10^3/uL (130-400) L 03/02/25 06:05 INR 1.1 (0.9-1.1) 03/01/25 06:42 Creatinine 0.7 mg/dL (0.55-1.02) 03/02/25 06:05 DVT Prophylaxis: Reviewed (TEDs, PLT increased from 59) Opiate Usage Evaluate Pain Scale/Pains Meds: Reviewed (hydromorphone 0.5mg IVP q6h PRN - 0.5mg / 24hrs) Scheduled Bowel Reg ordered if on Opiates?: No (PRN Miralax) Relevant Labs Relevant Labs: Sodium 132 mmol/L (136-145) L 03/02/25 06:05 Potassium 3.7 mmol/L (3.5-5.1) 03/02/25 06:05 Chloride 98 mmol/L (98-107) 03/02/25 06:05 Magnesium 1.8 mg/dL (1.8-2.4) 03/02/25 06:05 Electrolytes, C-Reactive P, ESR: Reviewed Cardiac Review Cardiac Review: Troponin I Cancelled 02/24/25 10:30 NT-Pro-B Natriuret Pep 2417 pg/mL (<300) H 02/24/25 08:11 BP, HR, EF%: Reviewed (BP 141/85, HR WNL) QTc Review QTc: Reviewed (518 from 02/25/25) List meds needing interventions: Current medications are okay IV to PO Switch IV Medications: Reviewed (NPO at this time) Home Meds Home Med List reviewed: Intervened Relevent Home Meds Not ordered & why?: bumetanide (on hold - confirmed with provider), Epipen (PRN), fexofenadine and carvedilol (on hold - confirmed with provider) Had order for carvedilol that was put in as [facility]. I canceled order (provider aware). Current Meds Current Medication Order Review: Reviewed Pharmacy Antibiotic Review Relevant Labs: WBC 38.27 10^3/uL (4.4-10.8) H* 03/02/25 06:05 Temperature 36.2 C Temperature 35.8 C Pharmacy Antibiotic Activity: C/S review and Reviewed, no change Comments: Patient is on Zosyn, day 5 (day 6 @1200), for cholecystitis. WBC increased from 36.39 and blood cultures pending. Per provider attempting to transfer, pending bed availability. Comments Comments/Follow Ups: Transfer pending bed availability
[2025-03-02] MEDS: Normal Saline 1,000 ML 75 ML IV (11:30)
--- NOTE | 2025-03-02 12:05 | DSE_ITS ---
Date of service: 03/02/25 Time of Service: 12:06 DS: Diagnosis Discharge Diagnosis (1) Acute cholecystitis: Status: Acute (2) Abdominal pain: Status: Acute (3) Hyperbilirubinemia: Status: Acute (4) Cholelithiasis: Status: Acute (5) Hepatic cirrhosis: Status: Acute (6) Acute hypoxemic respiratory failure: Status: Acute (7) Elevated brain natriuretic peptide (BNP) level: Status: Acute (8) Hypokalemia: Status: Acute (9) Elevated INR: Status: Acute (10) Ascites: Status: Acute (11) Mass of cecum: Status: Acute Discharge Plan Disposition Patient Disposition: Transfer-Acute Inpatient Care Specific Acute Inpt Facility: [facility] Condition: Poor Discharge Details Reason For Visit: Acute hypoxic respiratory failure Admit Date/Time: 02/25/25 11:05 Admit Provider: Dominic Ruiz Attending Provider: Dominic Ruiz Primary Care Provider: Beth Baptiste Hospital Course Hospital Course: 54-year-old female with history significant for FISHER/MASLD, autoimmune gastritis, CHF, breast cancer (2014, s/p mastectomy, chemotherapy, radiation, in remission), renal stones, and known cirrhosis with portal hypertension, varices, and ascites. * Presented to ED 02/23 with back pain; discharged with Dilaudid. * Returned 02/24 with worsening abdominal/back pain. CT: cirrhosis, sp lenomegaly, ascites, portal HTN, esophageal varices, cholelithiasis vs cholecystitis, fatty mass in cecum. * Admitted for acute hypoxic respiratory failure requiring 3L O2; improved to baseline. * Treated with IV Lasix for CHF * Started on IV antibiotics and ursodiol. * After 48 hrs, WBC jonathan and functional status declined. HIDA scan today acute cholycystitis. * 02/24 Surgical consult: high surgical risk; recommended conservative mgmt but consideration of cholecystostomy tube. Not surgical candidate at [facility]; transfer process initiated - 8 hopsitals contacted, declined.02/27 Finally accepted by surgery, Dr Taylor @ [facility]. She was also accepted by surgery at [facility], however they called back and declined due to capacity. Patient in agreement with plan of care and transfer. No bed available again today; 03/02. I reached back out to [facility] and let them know our concern and that she is getting sicker; increasing WBC to 38k, somnolent, tachycardic and blood pressure, although normal, trending down. Dr Torres from surgery did acccept her and they do have an ICU bed she can go to. Patient is thrilled she will be at [facility] where she is seen out patient by GI Dr Vargas. * NPO pending transfer. Hospital Course * Respiratory: Hypoxic on admission, resolved with diuresis. Currently stable on 2 LPM via oxymask. * GI/Liver: Decompensated cirrhosis with portal HTN, ascites, and varices. On lactulose and rifaximin for hepatic encephalopathy with good control. * Pain/Nausea: Hydromorphone PRN, Compazine PRN. * Palliative Care: Consult completed. Patient completed advance directive today, identified son Bashir as HCA. Wishes for limited trial of life-sustaining therapy if unable to communicate, free of incapacitating pain, or maintain awareness. Interested in will planning; referred to [place] Manager Advanced/sandfill operator. * Social: Lives in [facility]. Son Leroy and girlfriend (SHAMIKA) planning to move in. She is concerned about son?s grief after father?s recent . Exam * General: Ill-appearing but interactive, sitting in recliner. * HEENT: Normocephalic, atraumatic, alopecia, MMM. * Resp: Even, unlabored, full sentences without SOB. * CV: No vitals instability, well perfused. * Ext: Generalized edema in all extremities. * Psych: Pleasant, cooperative, impoverished thought process, loose associations, fair insight/judgment. Pertinent Labs (02/28/25 06:38) * WBC 24.1 * Plt 47 * Hgb 11.7 * INR 1.1 * Na 134, K 3.4 , Mg 1.7 * Cr 1.2 (eGFR 54) * BUN 35 * T. Bili 10.9? * AST 41 , ALT 22, Alk Phos 127 * Albumin 2.0 * Ammonia <10 03/02/25 WBC 38.27 * Plt 63 * Hgb 11.4 * INR 1.1 * Na 132 K 3.7 * Cr 0.7 * BUN 18 * T. Bili 10.0 * AST 50 , ALT 20, Alk Phos 173 * Albumin 1.9 * Ammonia <10 Active Problems * Acute cholecystitis vs cholelithiasis * Hepatic cirrhosis with portal HTN, ascites, esophageal varices * Acute hypoxemic respiratory failure (resolved) * Abdominal pain * Anasarca * Mass of cecum (outpatient colonoscopy recommended) * Hx breast cancer (remission) * CHF * Hypokalemia, hypomagnesemia * ACP/Palliative care needs Assessment & Plan * Acute cholecystitis ? Not surgical candidate at [facility], pending transfer to [facility] for consideration of cholecystostomy tube vs cholecystectomy. NPO. * Respiratory failure ? Resolved, now stable on 2 [employer] oxymask (No O2 requirement at home). Monitor. * Cirrhosis/portal HTN/varices/ascites ? Continue lactulose and rifaximin; follow with GI. * Pain management ? Hydromorphone IV PRN. * Nausea ? Compazine PRN. * Cecal mass ? Needs outpatient colonoscopy once stabilized. * Electrolyte abnormalities ? Monitor and replete as needed. Disposition * Transfer to [facility] ? accepted by surgery Dr Torres [facility] * NPO pending transfer. 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 Home Meds and New Rx's Prescriptions: No Action anastrozole 1 mg Tablet 1 mg PO DAILY fexofenadine 30 mg Tablet 30 mg PO DAILY levothyroxine [Synthroid] 50 mcg Tablet 50 mcg PO DAILY cholecalciferol (vitamin D3) [Vitamin D3] 125 mcg (5,000 unit) Tablet 125 mcg PO DAILY bupropion HCl 300 mg tablet extended release 24 hr 300 mg PO DAILY Patient Comments: TAKE ONE TABLET BY MOUTH EVERY DAY WITH 150 MG TABLET lactulose 10 gram/15 mL solution 10 g PO BID PRN Patient Comments: TAKE 15 TO 30ML BY MOUTH ONCE OR TWICE EVERY DAY NEEDED duloxetine 20 mg capsule,delayed release(DR/EC) 20 mg PO DAILY Patient Comments: TAKE ONE CAPSULE BY MOUTH EVERY DAY DO NOT CRUSH OR CHEW carvedilol phosphate 10 mg capsule, ER multiphase 24 hr 10 mg PO DAILY Patient Comments: TAKE ONE CAPSULE BY MOUTH EVERY MORNING ; TAKE 10MG WITH 20MG FOR TOTAL OF 30MG FOR HTN AND VARICES (DO NOT CRUSH OR CHEW) carvedilol phosphate 20 mg capsule, ER multiphase 24 hr 20 mg PO DAILY Patient Comments: TAKE ONE CAPSULE BY MOUTH EVERY MORNING. TAKE 20MG AND 10MG SO TOTAL 30MG DAILY levothyroxine 300 mcg tablet 300 mcg PO .WEEKLY Patient Comments: TAKE 1 TABLET BY MOUTH ONCE A WEEK BEFORE MEAL(S) WITH A 50 MG TABLET bumetanide 1 mg tablet 2 mg PO DAILY Patient Comments: TAKE TWO TABLETS BY MOUTH EVERY MORNING albuterol sulfate 90 mcg/actuation Hfa Aerosol Inhaler 2 puff INHALATION Q6H PRN pantoprazole 40 mg Tablet,Delayed Release (Dr/Ec) 40 mg PO DAILY folic acid 1 mg Tablet 1 mg PO DAILY fluticasone propionate [Flonase Allergy Relief] 50 mcg/actuation [place],Suspension 2 spray INTRANASAL DAILY PRN epinephrine [EpiPen] 0.3 mg/0.3 mL auto-injector 0.3 mg IM ONCE PRN (Reason: anaphylaxis) Qty: 1 0RF Rx Instructions: as a single dose; may repeat once rifaximin 550 mg tablet 550 mg PO BID bupropion HCl [Wellbutrin XL] 150 mg tablet extended release 24 hr 450 mg PO DAILY nystatin 100,000 unit/gram powder 1 applic topical BID hydromorphone [Dilaudid] 2 mg tablet 1 mg PO Q6H PRN (Reason: pain) Qty: 6 0RF Discharge Instructions Activity:: Ambulance Equipment/Supplies:: No Equipment Needed Diet:: NPO DS: Summary Time Spent with Patient providing and/or coordinating discharge services: Greater than 30 minutes Status at Discharge Functional status at discharge: bed bound (EMS) Overall status at discharge: patient is not back to baseline Mental Status: mental status grossly normal Speech and Movement: speech and movement normal Mood: congruent mood Affect: normal affect Quality:SDOH Health Related Social Needs: Health related social needs lonely/isolated Health related social needs details couldn't work for a month Health related social needs details: couldn't work for a month Exam Const General: cooperative, comfortable and no acute distress Nutritional Appearance: overweight Orientation: alert, awake and oriented x3 HENMT Head: normal to inspection, normocephalic and atraumatic Face and sinus: normal facial exam Mouth: oral mucosae normal Eyes Alignment and Position: alignment normal Sclera: scleral abnormality bilaterally (icteric) EOM: EOM intact bilaterally Neck Neck: normal visual inspection and full ROM Chest Chest: normal inspection of the chest Resp Effort & Inspection: normal respiratory effort and able to speak in complete sentences Auscultation: clear to auscultation bilaterally Cardio Rate: regular rate Rhythm: regular rhythm GI Inspection: normal to inspection, distended and obesity Palpation: soft and tender Skin General skin exam: jaundice Psych Mental Status: mental status grossly normal Speech and Movement: speech and movement normal Mood: congruent mood Affect: normal affect DS: Data Vitals/I&O Vitals and I&O: Vital Signs Temperature 36.2 C L 03/02/25 07:05 Temperature Source Temporal Artery Scan 03/02/25 07:05 Pulse 87 03/02/25 07:05 Pulse 82 02/24/25 11:30 Respiratory Rate 16 03/02/25 07:05 Respiratory Effort Short of Breath, Splinting 02/24/25 12:17 Respiratory Pattern Tachypnea 02/24/25 12:17 Blood Pressure 141/85 H 03/02/25 07:05 Blood Pressure Mean 103 03/02/25 07:05 Pulse Oximetry 96 03/02/25 08:22 Oxygen Delivery Method Room Air 03/02/25 08:22 Oxygen Flow Rate 0 03/02/25 08:22 Pain Level 3 03/02/25 08:00 Comment PT sleeping refused vitals. 02/28/25 03:50 Intake & Output 03/01/25 03/02/25 03/02/25 23:59 11:59 23:59 Intake Total 1320 / 1460 1100 / 1100 Output Total 100 / 400 150 / 150 Balance 1220 / 1060 950 / 950 Intake: IV 1320 / 1420 1100 / 1100 Output: Urine 100 / 400 150 / 150 Other: Urine Color Brown [place] Urine Appearance Clear Clear Urine Odor Strong Normal Stool Size Small Moderate Stool Characteristics Liquid Liquid Brown Brown Data Completed and Pending Labs on day of discharge: Labs from last 24 hours 03/02/25 03/01/25 03/01/25 06:05 21:10 20:35 WBC 38.27 H* 36.38 H* Cancelled RBC 3.66 L 3.75 L Cancelled Hgb 11.4 11.7 Cancelled Hct 32.5 L 32.9 L Cancelled MCV 89 88 Cancelled MCH 31.1 31.2 Cancelled MCHC 35.1 35.6 Cancelled RDW 13.9 14.0 Cancelled Plt Count 63 L 59 L Cancelled MPV 12.6 H 12.1 H Cancelled Immature Gran % See Differential See Differential Cancelled Neutrophils % 76.0 77.0 Cancelled Band Neutrophils % 4 9 Cancelled Lymphocytes % 5.0 1.0 Cancelled Atypical Lymphs % Cancelled Monocytes % 11.0 7.0 Cancelled Eosinophils % 1.0 0.0 Cancelled Basophils % 0.0 0.0 Cancelled Metamyelocytes % 2 3 Cancelled Myelocytes % 1 3 Cancelled Promyelocytes % Cancelled Other Cells % Cancelled Nucleated RBC % 0.0 0.0 Cancelled Absolute Neutrophils 30.62 H 31.29 H Cancelled Absolute Lymphocytes 1.91 0.36 L Cancelled Absolute Monocytes 4.21 H 2.55 H Cancelled Absolute Eosinophils 0.38 0.00 Cancelled Absolute Basophils 0.00 0.00 Cancelled RBC Morphology Normal Normal Cancelled Polychromasia Cancelled Hypochromasia Cancelled Poikilocytosis Cancelled Basophilic Stippling Cancelled Anisocytosis Cancelled Microcytosis Cancelled Macrocytosis Cancelled Spherocytes Cancelled Tear Drop Cells Cancelled Ovalocytes Cancelled Stomatocytes Cancelled [place] Bodies Cancelled [place] Cells/Echinocytes Cancelled Acanthocytes (Spur) Cancelled Schistocytes Cancelled Sodium 132 L Potassium 3.7 Chloride 98 Carbon Dioxide 24.3 Anion Gap 9.7 BUN 18 Creatinine 0.7 Est GFR (CKD-EPI 2020) 103.35 Glucose 70 L Calcium 8.6 Magnesium 1.8 Total Bilirubin 10.0 H Conjugated Bilirubin 6.7 H AST 50 H ALT 20 Alkaline Phosphatase 173 H Total Protein 5.6 L Albumin 1.9 L Path Cons Comment Pending Add-On Test Request DONE 03/01/25 20:35 Blood Blood Culture - Pending 03/01/25 20:00 Blood Blood Culture - Pending Preliminary micro results at discharge 03/01/25 20:35 Blood Blood Culture - Pending 03/01/25 20:00 Blood Blood Culture - Pending [facility] All Active Problems (Updated 03/02/25 @ 12:16 by Mony Vang NP) Palliative care patient (Acute) ACP (advance care planning) (Acute) Acute cholecystitis (Acute) Hypokalemia (Acute) Ascites (Acute) Cholelithiasis (Acute) Elevated brain natriuretic peptide (BNP) level (Acute) Abdominal pain (Acute) Elevated INR (Acute) Hyperbilirubinemia (Acute) Hepatic cirrhosis (Acute) Distended umbilical veins (Acute) Mass of cecum (Acute) Anasarca (Acute) Acute hypoxemic respiratory failure (Acute) Atypical chest pain (Acute) Medical History Hypothyroid HTN (hypertension) Portal hypertension Esophageal varices Breast cancer Surgical History H/O breast surgery Social History Smoking/Tobacco Use Status: Former Tobacco Use Smoking risk assessment performed?: Yes Alcohol Intake: former Drug use: Never Substance use type: does not use Housing: house Do you feel safe at home: Yes Do you feel safe in your relationship?: Yes Time Spent with Patient Time Spent with Patient: 70-84 minutes4 Time was spent: preparing to see the patient(eg.review tests), ordering medications,tests, procedures, referring, communicating with other health toddler caregiver, indepentently interpreting results, counseling the patient and care coordination
--- NOTE | 2025-03-02 12:20 | NUR.NOTE ---
Addendum entered by Bashir Flower RN 03/02/25 12:54: Pt transferred over to ICU. Nurse to nurse given to receiving ICU nurse (name not obtained). All belongings were transferred over to new ICU room with pt. Pt still has midline IV in [facility]. Original Note: Nursing Note:
--- NOTE | 2025-03-02 12:45 | CMDISCH_ITS ---
Date of service: 03/02/25 Time of Service: 12:45 LACE Index Scoring Tool Questions: Length of Stay (in days): 4 - 6 Was the patient admitted via the E.D.?: Yes Comorbidities: Any Tumor and Liver or Renal Disease E.D. Visits: 2 Answers: Total Score: 14 Risk of Readmission: High Risk Care Management Discharge Plan Reason for Hospitalization: septic gallbladder Discharge Plan: Kelley is being transferred to [facility] today for further work up and care of her septic gallbladder. She is very pleased to have a bed at [facility], as that is where her specialist are. She will transfer via EMS. SDOH Health Related Social Needs: Health related social needs lonely/isolated Health related social needs details couldn't work for a month Health related social needs details: couldn't work for a month
--- NOTE | 2025-03-02 13:16 | W.NUTRFU ---
Date of service: 03/02/25 Time of Service: 13:17 Nutrition Note NOTE: Have spoke with patient multiple times this admission, where she has been NPO status or clear liquids majority of her admission. Weight history shows ~24kg wt loss over the last 3y and 4months. She is a very sick woman, requiring transfer at this time for high risk cholecystectomy. NFPE not performed Nutrition Dx: Severe malnutrition in the context of acute-on -chronic illness related to extended period of inadequate intake and >5 days of NPO/clears, as evidenced by weight loss as described above and diet order type over her admission preventing her from meeting >50% of estimated energy needs. No nutrition intervention planned at this time as patient currently being transferred. Have been offering Boost Breeze protein ONS for support during clear liquids. Time Spent in Nutritional Counseling and Treatment: 5 min
--- NOTE | 2025-03-02 13:36 | CHAPLAIN ---
I visited with Kelley on Med/Surg this morning, and then this afternoon when she was transferred to the ICU while she wasn't to be discharged to [facility] for possible surgery. Kelley said she woke up this morning, after sleeping well, thinking that it was going to be a good day. She's been waiting to here about discharge to [facility], waiting for a bed to become available) for a couple of days. Because her gastro doctor is at [facility], Kelley said this is an even better situation for her. And her son, Bashir, will be able to visit Kelley at [facility], and likely would not have been able to travel to [facility] to visit her because of his work. Kelley expressed her gratitude for the care she's received here. 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 She has some close friends at work, and is in touch with friends through Facebook. Kelley said she is ordinarily upbeat and optimistic, although she's been dealing with medical issues for a decade now, including a double mastectomy. She considers her son he best support, and is also in touch with her older sister and two brothers. Kelley was raised Yarsanism and doesn't attend yazdanism any more. She prays and has conversations with God daily, and said God has a terrific sense of humor. Kelley requested a prayer before she was transferred to [facility] so ICU staff let me know when she had about half an hour before leaving and I said a prayer with her.
[2025-03-02] MEDS: HYDROmorphone 2 MG/ML SYR 0.5 MG IVP (13:37)
== END 2025-03-02 13:40 | disposition short-term general hospital (02) | DRG 444 ==
LOC: ER 10:58 → MS 11:58 → ICU 03-02 12:16
PROVIDERS: Nurse Practitioner Acute Care; Admitting Provider Family Medicine; Emergency Provider Emergency Medicine; PCP Nurse Practitioner Adult Health; Responsible Provider Nurse Practitioner Family; Visit Provider Family Medicine
DX: K80.00 Calculus of gallbladder with acute cholecystitis without obstruction (principal); J96.01 Acute respiratory failure with hypoxia; I85.10 Secondary esophageal varices without bleeding; K76.6 Portal hypertension; R60.1 Generalized edema; E80.6 Other disorders of bilirubin metabolism; I10 Essential (primary) hypertension; R79.1 Abnormal coagulation profile; E03.9 Hypothyroidism, unspecified; K75.81 Nonalcoholic steatohepatitis (NASH); K74.69 Other cirrhosis of liver; R79.89 Other specified abnormal findings of blood chemistry; Z85.3 Personal history of malignant neoplasm of breast; D69.6 Thrombocytopenia, unspecified; K29.60 Other gastritis without bleeding; Z87.442 Personal history of urinary calculi; R45.89 Other symptoms and signs involving emotional state; D12.0 Benign neoplasm of cecum; I07.1 Rheumatic tricuspid insufficiency; D72.829 Elevated white blood cell count, unspecified
CPT/HCPCS: 36410; 00123; 36415; 78227; 80048; 80053; 80076; 83690; 86704; 86709; 86803; 87040; 87340; 93005; 93308; 96374; 96375; 96376; 97110; 97162; 97530; 99285; 71045; 74177; 76705; 82140; 83615; 83735; 83880; 84443; 84484; 85025; 85045; 85610; 93010; 93306; 94760; 99223; 99231; 99232; 99239; J0780; J1171; J1885; J1938; J2470; J2543; J3475; J3480; J3490

== ENCOUNTER 2025-03-22 15:18 | Outpatient (REF) | payer OTHER, SELFPAY ==
[2025-03-22 11:26] LABS: Abs Immature Grans 0.06 10^3/uL (0.0-0.06); HCT 29.7 % (36.0-46.0); HGB 9.7 g/dL (11.2-15.7); Immature Grans % 1.1 %; MCH 31.2 pg (27.0-33.0); MCHC 32.7 % (32.0-36.0); MCV 96 fL (80-95); MPV 10.9 fL (8.0-11.0); RBC 3.11 10^6/uL (3.93-5.22); RDW 15.9 % (11.7-14.6); RDW-SD 55.9 fL; WBC 5.59 10^3/uL (4.4-10.8)
[2025-03-22 11:52] LABS: Platelet Count 97 10^3/uL (130-400)
[2025-03-22 11:58] LABS: INR 1.2 (0.9-1.1); Prothrombin Time 12.3 sec (9.1-11.1)
[2025-03-22 19:03] LABS: ALT 35 U/L (14-59); AST 82 U/L (15-37); Albumin 2.2 g/dL (3.4-5.0); Alkaline Phosphatase 103 U/L (46-116); Anion Gap 7.6 mmol/L (3-11); BUN 8 mg/dL (7-18); Bilirubin, Total 2.0 mg/dL (0.2-1.0); CO2 29.4 mmol/L (21.0-32.0); Calcium 8.6 mg/dL (8.5-10.1); Chloride 106 mmol/L (98-107); Estimated GFR 103.35 (mL/min/1.73m2); Glucose 78 mg/dL (74-106); Potassium 3.3 mmol/L (3.5-5.1); Sodium 143 mmol/L (136-145); Total Protein 5.7 g/dL (6.4-8.2)
== END 2025-03-22 15:19 | disposition home or self-care (01) ==
LOC: LBN 15:18
PROVIDERS: Visit Provider Internal Medicine
DX: K75.0 Abscess of liver (principal); E87.1 Hypo-osmolality and hyponatremia; E83.42 Hypomagnesemia; Z79.2 Long term (current) use of antibiotics
CPT/HCPCS: 80053; 85025; 85610

== ENCOUNTER 2025-03-29 10:21 | Outpatient (REF) | payer OTHER, SELFPAY ==
[2025-03-29 11:31] LABS: Abs Immature Grans 0.04 10^3/uL (0.0-0.06); HCT 34.6 % (36.0-46.0); HGB 11.2 g/dL (11.2-15.7); Immature Grans % 0.6 %; MCH 31.0 pg (27.0-33.0); MCHC 32.4 % (32.0-36.0); MCV 96 fL (80-95); MPV 10.5 fL (8.0-11.0); Platelet Count 122 10^3/uL (130-400); RBC 3.61 10^6/uL (3.93-5.22); RDW 15.9 % (11.7-14.6); RDW-SD 55.8 fL; WBC 6.96 10^3/uL (4.4-10.8)
[2025-03-29 11:49] LABS: INR 1.2 (0.9-1.1); Prothrombin Time 11.8 sec (9.1-11.1)
[2025-03-29 12:31] LABS: ALT 29 U/L (14-59); AST 60 U/L (15-37); Albumin 2.4 g/dL (3.4-5.0); Alkaline Phosphatase 111 U/L (46-116); Anion Gap 7.2 mmol/L (3-11); BUN 10 mg/dL (7-18); Bilirubin, Total 2.6 mg/dL (0.2-1.0); CO2 31.8 mmol/L (21.0-32.0); Calcium 8.3 mg/dL (8.5-10.1); Chloride 105 mmol/L (98-107); Estimated GFR 88.05 (mL/min/1.73m2); Glucose 83 mg/dL (74-106); Potassium 3.3 mmol/L (3.5-5.1); Sodium 144 mmol/L (136-145); Total Protein 6.1 g/dL (6.4-8.2)
[2025-03-30 10:25] LABS: C-Reactive Protein < 0.50 mg/dL (<or=0.5)
== END 2025-03-29 10:22 | disposition home or self-care (01) ==
LOC: LBN 10:21
PROVIDERS: Internal Medicine; Visit Provider Internal Medicine
DX: K76.6 Portal hypertension (principal); K75.81 Nonalcoholic steatohepatitis (NASH); K75.0 Abscess of liver
CPT/HCPCS: 80053; 85025; 85610; 86140